=== PATIENT | male | born 1975 | race Hispanic/Latino ===

== ENCOUNTER 2016-04-29 03:43 | Inpatient (IN) | payer OTHER ==
[2016-04-29 03:44] VITALS: BMI 25.1
[2016-04-29] MEDS ORDERED: Sodium Chloride 0.9% 1,000 ML IV STA (04:00)
[2016-04-29 04:16] LABS: BASO # 0.1 K/uL (0.0-0.2); BASO % 1.1 % (0.0-2.0); EOS # 0.1 K/uL (0.0-0.7); EOS % 0.8 % (0.0-4.0); HEMATOCRIT 47.6 % (35.0-51.0); LYMPH # 2.4 K/uL (1.0-4.3); LYMPH % 37.4 % (20.0-40.0); MEAN CELL VOLUME 96.6 fl (80.0-94.0); MEAN CORPUSCULAR HEMOGLOBIN 32.7 pg (27.0-31.0); MEAN CORPUSCULAR HGB CONC 33.9 g/dL (33.0-37.0); MEAN PLATELET VOLUME 8.1 fl (7.2-11.7); MONO # 0.5 K/uL (0.0-0.8); MONO % 8.3 % (0.0-10.0); NEUT # 3.3 K/uL (1.8-7.0); NEUT % 52.4 % (50.0-75.0); NRBC % 0.1 % (0.0-0.0); RED CELL DISTRIBUTION WIDTH 15.4 % (11.5-14.5); WHITE BLOOD COUNT 6.3 K/uL (4.8-10.8)
[2016-04-29 04:19] LABS: CHLORIDE 101 mmol/L (98-107); POTASSIUM 4.4 MMOL/L (3.6-5.0); SODIUM 137 mmol/l (132-148)
[2016-04-29 04:21] LABS: AST/SGOT 99 U/L (17-59); BILIRUBIN,TOTAL 0.6 mg/dl (0.2-1.3); CARBON DIOXIDE 24 mmol/L (22-30); GFR AFRICAN-AMERICAN > 60
[2016-04-29 04:22] LABS: ALB/GLOB RATIO 1.2 (1.0-2.1); ALKALINE PHOSPHATASE 90 U/L (38-126); ALT/SGPT 82 U/L (21-72); BLOOD UREA NITROGEN 9 mg/dl (9-20); CALCIUM 9.2 mg/dL (8.4-10.2); GLUCOSE,RANDOM 124 mg/dL (75-110); TOTAL PROTEIN 7.9 G/DL (6.3-8.2)
[2016-04-29 04:23] LABS: ALCOHOL SERUM 149 mg/dl (0-10)
--- NOTE | 2016-04-29 04:41 | ED PDOC ---
HPI: Abdomen Time Seen by Provider: 04/29/16 03:52 Chief Complaint (Nursing): Abdominal Pain Chief Complaint (Provider): epigastric pain History Per: Patient History/Exam Limitations: no limitations Onset/Duration Of Symptoms: Hrs Outside of [place] travel?: No Current Symptoms Are (Timing): Still Present Location Of Pain/Discomfort: Epigastric Quality Of Discomfort: Stabbing Additional Complaint(s): 41yo male with PMHx including diverticulitis, colon resection, HTN, high cholesterol, pancreatitis, gastritis presents to the ED with c/o stabbing epigastric pain that started around midnight. Patient states he had 2 glasses of wine last night and went to bed feeling fine. Patient has been having pain since midnight. No n/v, changes in bowel movements. Past Medical History Reviewed: Historical Data, Nursing Documentation, Vital Signs Vital Signs: Last Vital Signs Temp 97.4 F L 04/29/16 03:56 Pulse 88 04/29/16 03:56 Resp 18 04/29/16 03:56 BP 129/78 04/29/16 03:56 Pulse Ox 98 04/29/16 04:45 - Medical History PMH: Anxiety, Depression, Diverticulitis, Gastritis, HTN, Hypercholesterolemia, Hyperlipidemia, Pancreatitis Denies: Diabetes, Hepatitis, HIV, Chronic Kidney Disease, Seizures, Sexually Transmitted Disease - Surgical History Other surgeries: colon resection - Family History Family History: States: CAD (in father) - Home Medications Home Medications: Ambulatory Orders Medication Instructions Recorded Amlodipine Besylate/Benazepril 1 cap PO DAILY 08/11/15 [Lotrel 5-20 mg Capsule] Omeprazole Magnesium [Prilosec Otc] 1 tab PO DAILY 08/11/15 clonazePAM [Klonopin] 1 mg PO BID 08/11/15 ARIPiprazole [Abilify] PO DAILY 04/29/16 Escitalopram [Lexapro] 20 mg PO DAILY 04/29/16 - Allergies Allergies/Adverse Reactions: Allergies Allergy/AdvReac Type Severity Reaction Status Date / Time No Known Allergies Allergy Verified 01/19/16 10:52 Review of Systems ROS Statement: Except As Marked, All Systems Reviewed And Found Negative Gastrointestinal: Positive for: Abdominal Pain (epigastric ), Other (no changes in BMs ). Negative for: Nausea, Vomiting Physical Exam - Reviewed Nursing Documentation Reviewed: Yes Vital Signs Reviewed: Yes - Physical Exam Appears: Positive for: Well, No Acute Distress Head Exam: Positive for: ATRAUMATIC, NORMAL INSPECTION, NORMOCEPHALIC Skin: Positive for: Normal Color, Warm, Dry Eye Exam: Positive for: Normal appearance, EOMI, PERRL ENT: Positive for: Normal ENT Inspection Neck: Positive for: Normal, Painless ROM, Supple Cardiovascular/Chest: Positive for: Regular Rate, Rhythm. Negative for: Murmur , Tachycardia Respiratory: Positive for: Normal Breath Sounds. Negative for: Wheezing, Respiratory Distress Gastrointestinal/Abdominal: Positive for: Bowel Sounds, Soft, Tenderness ( epigastric tenderness to palpation ) Back: Positive for: Normal Inspection. Negative for: L CVA Tenderness, R CVA Tenderness Extremity: Positive for: Normal ROM. Negative for: Deformity, Swelling Neurologic/Psych: Positive for: Alert, Oriented. Negative for: Motor/Sensory Deficits - Laboratory Results Result Diagrams: 04/29/16 04:11 04/29/16 04:11 - ECG O2 Sat by Pulse Oximetry: 98 Pulse Ox Interpretation: Normal (RA) Medical Decision Making Medical Decision Makin: Impression: pancreatitis vs. diverticulitis Plan: Labs Morphine 2mg IVP, Protonix 40mg IVP, Zofran 4mg IVP, IVF reassess 530AM: Pt. continues to have epigastric pain. Lipase elevated above 3000. Admits that he drank more than 2 glasses of wine as originally stated. CT not needed to confirm story given previous history of pancreatitis, current symptoms , and lipase. Will do RUQ sono, discuss case with his GI doctor Dr. 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 Scribe Attestation: Documented by Kevin Muñoz acting as a scribe for Mike Lea MD. Provider Scribe Attestation: All medical record entries made by the Scribe were at my direction and personally dictated by me. I have reviewed the chart and agree that the record accurately reflects my personal performance of the history, physical exam, medical decision making, and the department course for this patient. I have also personally directed, reviewed, and agree with the discharge instructions and disposition. Disposition - Clinical Impression Clinical Impression: Pancreatitis, alcoholic, acute - Disposition Disposition Time: 05:36 Condition: STABLE
[2016-04-29 05:07] LABS: LIPASE 3151 U/L (23-300)
[2016-04-29] MEDS ORDERED: Lactated Ringer's 2,000 ML IV SCH (05:30)
--- NOTE | 2016-04-29 09:33 | RAD ---
PROCEDURE: CHEST RADIOGRAPH, 1 VIEW HISTORY: abd pain, pancreatitis COMPARISON: Comparison is made to the previous study dated 01/19/2016 FINDINGS: LUNGS: No evidence of new infiltrate or consolidation in the lungs. PLEURA: No pneumothorax or pleural fluid seen. CARDIOVASCULAR: Normal. OSSEOUS STRUCTURES: No significant abnormalities. VISUALIZED UPPER ABDOMEN: Normal. OTHER FINDINGS: None. IMPRESSION: No active disease.
--- NOTE | 2016-04-29 09:51 | US ---
HISTORY: acute pancreatitis COMPARISON: Comparison is made to the previous CT dated 08/11/2019 60 TECHNIQUE: Sonographic evaluation of the right upper quadrant of the abdomen. FINDINGS: LIVER: Measures 20 cm in length. Heterogeneous increased echogenicity of the liver parenchyma. No mass. No intrahepatic bile duct dilatation. GALLBLADDER: Unremarkable. No gallstones. COMMON BILE DUCT: Measures 3.6 mm. No stones. No dilatation. PANCREAS: Mildly echogenic pancreas . No mass. No ductal dilatation. RIGHT KIDNEY: Measures 12.6 x 6.4 x 5.1 cm in length. Normal echogenicity. No calculus, mass, or hydronephrosis. AORTA: No aneurysmal dilatation. IVC: Unremarkable. OTHER FINDINGS: None . IMPRESSION: No evidence of cholelithiasis or cholecystitis. Mild hepatomegaly with findings suggestive of moderate steatosis. Mildly echogenic pancreas.
--- NOTE | 2016-04-29 10:04 | CP.PCM.HP ---
History of Present Illness - History of Present Illness History of Present Illness: pt admitted for pancreatitis, pt drinks wine daily. pt is w./ epigastric pain w/ o n/v/d. no f/c. bw noted. imaging noted. consult w/ dr weinstein noted. pt is will known to dr weinstein. has h/o panreatitis 1 yr ago. Present on Admission - Present on Admission Any Indicators Present on Admission: No Review of Systems - Gastrointestinal Gastrointestinal: As Per HPI, Abdominal Pain Past Patient History - Tetanus Immunizations Tetanus Immunization: Unknown - Past Medical History & Family History Past Medical History?: Yes - Past Social History Smoking Status: Heavy Smoker > 10 Cigarettes Daily - CARDIAC Hx Cardiac Disorders: Yes - PULMONARY Hx Respiratory Disorders: No - NEUROLOGICAL Hx Seizures: No - HEENT Hx HEENT Problems: No - RENAL Hx Chronic Kidney Disease: No - ENDOCRINE/METABOLIC Hx Endocrine Disorders: No - HEMATOLOGICAL/ONCOLOGICAL Hx Human Immunodeficiency Virus (HIV): No - INTEGUMENTARY Hx Dermatological Problems: No - MUSCULOSKELETAL/RHEUMATOLOGICAL Hx Musculoskeletal Disorders: No - GASTROINTESTINAL Hx Diverticulitis: Yes Hx Gastritis: Yes Hx Pancreatitis: Yes - GENITOURINARY/GYNECOLOGICAL Hx Sexually Transmitted Disorders: No - PSYCHIATRIC Hx Psychophysiologic Disorder: Yes - SURGICAL HISTORY Hx Surgeries: Yes Other/Comment: Hx colon resection 2008. Hx B/L knee surgery for meniscus 2004 - ANESTHESIA Hx Anesthesia: Yes Hx Anesthesia Reactions: No Meds Allergies/Adverse Reactions: Allergies Allergy/AdvReac Type Severity Reaction Status Date / Time No Known Allergies Allergy Verified 01/19/16 10:52 Physical Exam - Constitutional Appears: Well, Non-toxic, No Acute Distress - Head Exam Head Exam: ATRAUMATIC, NORMAL INSPECTION, NORMOCEPHALIC - Eye Exam Eye Exam: EOMI, Normal appearance, PERRL Pupil Exam: NORMAL ACCOMODATION, PERRL - ENT Exam ENT Exam: Mucous Membranes Moist, Normal Exam - Neck Exam Neck exam: Positive for: Normal Inspection - Respiratory Exam Respiratory Exam: Clear to Auscultation Bilateral, NORMAL BREATHING PATTERN - Cardiovascular Exam Cardiovascular Exam: REGULAR RHYTHM, RRR, +S1, +S2 - GI/Abdominal Exam GI & Abdominal Exam: Normal Bowel Sounds, Soft. absent: Tenderness - Extremities Exam Extremities exam: Positive for: full ROM, normal capillary refill, normal inspection, pedal pulses present - Back Exam Back exam: NORMAL INSPECTION - Neurological Exam Neurological exam: Alert, CN II-XII Intact, Normal Gait, Oriented x3, Reflexes Normal - Psychiatric Exam Psychiatric exam: Normal Affect, Normal Mood - Skin Skin Exam: Dry, Intact, Normal Color, Warm Results - Vital Signs Recent Vital Signs: Last Vital Signs Temp 97.4 F L 04/29/16 08:34 Pulse 74 04/29/16 08:34 Resp 20 04/29/16 08:34 BP 139/79 04/29/16 08:34 Pulse Ox 98 04/29/16 08:34 - Labs Result Diagrams: 04/29/16 04:11 04/29/16 04:11 Assessment & Plan (1) Pancreatitis, alcoholic, acute Assessment and Plan: dialudid/morphine pepcid, zofran, liquid diet, adv as enrique gi ivf Status: Acute Priority: High (2) DVT prophylaxis Assessment and Plan: scd nad aehose ambulation Status: Acute Decision To Admit - Pt Status Changed To: Hospital Disposition Of: Observation - . Bed Request Type: Med/Surg Admitting Physician: Malissa Johnson
[2016-04-29] MEDS ORDERED: Pantoprazole 40 mg EC Tab PO SCH (10:30)
[2016-04-29] MEDS: HYDROmorphone 0.5 mg/0.5 ml ISec IVP PRN ×4 (11:03→23:19)
[2016-04-29] MEDS: Sodium Chloride 0.9% 1,000 ML IV SCH ×2 (11:04→19:16)
--- NOTE | 2016-04-29 12:56 | CON ---
DATE: 04/29/2016 REFERRING PHYSICIAN: Dr. Johnson. REASON FOR CONSULTATION: Pancreatitis. HISTORY OF PRESENT ILLNESS: This is a pleasant 41-year-old man well known to my office and service f rom multiple admissions and years essentially for similar complaints. Basically quit his job recentl y, had a bout of drinking and has pancreatitis. Pain is improved, at this point, lying in bed, comfo rtable, no apparent distress. PAST MEDICAL HISTORY: As above. PAST SURGICAL HISTORY: As above. MEDICATIONS: Have been reviewed. REVIEW OF SYSTEMS: All systems reviewed and negative apart from the HPI. PHYSICAL EXAMINATION: VITAL SIGNS: In the hospital grossly unremarkable. GENERAL: Pleasant middle aged man lying comfortable, in no apparent distress. HEAD: Normocephalic, atraumatic. EYES: Pupils equally reactive to light bilaterally. No conjunctival pallor or icterus. NECK: Supple, normal range of motion. No lymphadenopathy. LUNGS: Clear to auscultation bilaterally. HEART: S1, S2. Regular rate and rhythm. No murmurs appreciated. ABDOMEN: Soft, some discomfort in the epigastric region. No organomegaly. RECTAL: Deferred. EXTREMITIES: Pulses present bilaterally. SKIN: Warm, dry and intact. NEUROLOGIC: AAO x 3. LABORATORY DATA: Reviewed. Alcohol levels ____ , lipase ____. AST, ALT 99/82. Random sugar is 124 . Ultrasound grossly unremarkable. CBC is normal. ASSESSMENT AND PLAN: This is a [id number] with pancreatitis from alcohol. This is not his fir st time. Advance diet slowly when tolerated to low fat, ____ hydrations. Advised against any furth er drinking and CT scan in 8 weeks. We will follow in the office. Thank you for the consult. Jose Eduardo Jimenez MD, PhD cc:Natanael MESA [id number] TT: 04/29/2016 12:55:34 Confirmation # [id number] Dictation # [id number] alex
[2016-04-29] MEDS ORDERED: Influenza Vaccine(5yr & older) 0.5 ML/45 MCG IM ONE (16:13)
[2016-04-29] MEDS ORDERED: Pneumococcal 23-Valent Vaccine IM ONE (16:13)
--- NOTE | 2016-04-29 17:08 | CARD ---
APPROVED REPORT EKG Measurement Heart [id number] DC [id number] <Conclusion> Normal sinus rhythm Incomplete right bundle branch block Borderline ECG
[2016-04-30] MEDS: Sodium Chloride 0.9% 1,000 ML IV SCH (02:40)
[2016-04-30] MEDS: HYDROmorphone 0.5 mg/0.5 ml ISec IVP PRN ×5 (03:12→21:49)
[2016-04-30] MEDS ORDERED: HYDROmorphone 0.5 mg/0.5 ml ISec IVP ONE (05:59)
[2016-04-30 06:51] LABS: BASO # 0.1 K/uL (0.0-0.2); BASO % 0.7 % (0.0-2.0); EOS # 0.1 K/uL (0.0-0.7); EOS % 0.8 % (0.0-4.0); HEMATOCRIT 44.3 % (35.0-51.0); LYMPH # 1.3 K/uL (1.0-4.3); LYMPH % 17.2 % (20.0-40.0); MEAN CORPUSCULAR HGB CONC 34.4 g/dL (33.0-37.0); MEAN PLATELET VOLUME 8.7 fl (7.2-11.7); MONO # 0.4 K/uL (0.0-0.8); MONO % 5.6 % (0.0-10.0); NEUT # 5.6 K/uL (1.8-7.0); NEUT % 75.7 % (50.0-75.0); RED CELL DISTRIBUTION WIDTH 14.5 % (11.5-14.5); WHITE BLOOD COUNT 7.5 K/uL (4.8-10.8)
[2016-04-30 06:58] LABS: ALB/GLOB RATIO 1.3 (1.0-2.1); ALCOHOL SERUM < 10 mg/dl (0-10); ALKALINE PHOSPHATASE 80 U/L (38-126); ALT/SGPT 60 U/L (21-72); AST/SGOT 56 U/L (17-59); BILIRUBIN,TOTAL 0.9 mg/dl (0.2-1.3); BLOOD UREA NITROGEN 5 mg/dl (9-20); CALCIUM 8.7 mg/dL (8.4-10.2); CARBON DIOXIDE 27 mmol/L (22-30); CHLORIDE 97 mmol/L (98-107); GFR AFRICAN-AMERICAN > 60; GLUCOSE,RANDOM 95 mg/dL (75-110); LIPASE 1738 U/L (23-300); POTASSIUM 3.6 MMOL/L (3.6-5.0); SODIUM 131 mmol/l (132-148); TOTAL PROTEIN 6.6 G/DL (6.3-8.2)
[2016-04-30] MEDS ORDERED: Lactated Ringer's 1,000 ML IV SCH (08:00)
[2016-04-30] MEDS ORDERED: Iohexol 240 (50 ml) PO ONE (09:41)
--- NOTE | 2016-04-30 09:42 | CP.PCM.PN ---
Subjective - Date & Time of Evaluation Date of Evaluation: 04/30/16 Time of Evaluation: 09:42 - Subjective Subjective: no f/c, n/v/d still w/ epigastric pain but now has rlq pain. no f/c, n/v/d. bw noted. lipase trneding down. enrique liquids does not want solids. cleared by gi for dc if enrique po and pain free. bw noted. Objective - Vital Signs/Intake and Output Vital Signs (last 24 hours): Temp Pulse Resp BP Pulse Ox 98.8 F 89 20 126/79 93 L 04/30/16 07:41 04/30/16 07:41 04/30/16 07:41 04/30/16 07:41 04/30/16 07:41 - Medications Medications: Current Medications Chlordiazepoxide (Librium) 25 mg PO Q6 PRN PRN Reason: tremor/alcohol withdrawal Clonazepam (Klonopin) 1 mg PO BID [facility] Last Admin: 04/30/16 08:42 Dose: 1 mg Escitalopram Oxalate (Lexapro) 20 mg PO DAILY [facility] Last Admin: 04/30/16 08:42 Dose: 20 mg Famotidine (Pepcid) 20 mg IVP Q12@0000,1200 [facility] Last Admin: 04/30/16 00:00 Dose: 20 mg Hydromorphone HCl (Dilaudid) 0.5 mg IVP Q4H PRN PRN Reason: pain 6-10 Stop: 05/01/16 10:32 Last Admin: 04/30/16 03:12 Dose: 0.5 mg Lactated Ringer's (Lactated Ringer's) 1,000 mls @ 100 mls/hr IV .Q10H [facility] Last Admin: 04/30/16 08:47 Dose: 100 mls/hr Iohexol (Omnipaque 240 (50 Ml)) 50 ml PO ONCE ONE Stop: 04/30/16 09:42 Morphine Sulfate (Morphine) 2 mg IVP Q4 PRN PRN Reason: Pain, 2-5 Ondansetron HCl (Zofran Inj) 4 mg IVP Q6 PRN PRN Reason: Nausea/Vomiting Quetiapine Fumarate (Seroquel) 200 mg PO HS [facility] Last Admin: 04/29/16 22:16 Dose: 200 mg - Labs Labs: 04/30/16 05:30 04/30/16 05:30 - Constitutional Appears: Well, Non-toxic, No Acute Distress - Head Exam Head Exam: ATRAUMATIC, NORMAL INSPECTION, NORMOCEPHALIC - Eye Exam Eye Exam: EOMI, Normal appearance, PERRL Pupil Exam: NORMAL ACCOMODATION, PERRL - ENT Exam ENT Exam: Mucous Membranes Moist, Normal Exam - Neck Exam Neck Exam: Full ROM, Normal Inspection. absent: Lymphadenopathy - Respiratory Exam Respiratory Exam: Clear to Ausculation Bilateral, NORMAL BREATHING PATTERN - Cardiovascular Exam Cardiovascular Exam: REGULAR RHYTHM, RRR, +S1, +S2. absent: Murmur - GI/Abdominal Exam GI & Abdominal Exam: Soft, Tenderness, Normal Bowel Sounds Additional comments: epigastric and rlq tenderness - Extremities Exam Extremities Exam: Full ROM, Normal Capillary Refill, Normal Inspection. absent : Joint Swelling, Pedal Edema - Back Exam Back Exam: NORMAL INSPECTION - Neurological Exam Neurological Exam: Alert, Awake, CN II-XII Intact, Normal Gait, Oriented x3 - Psychiatric Exam Psychiatric exam: Normal Affect, Normal Mood - Skin Skin Exam: Dry, Intact, Normal Color, Warm Assessment and Plan (1) Pancreatitis, alcoholic, acute Status: Acute (2) DVT prophylaxis Status: Acute (3) RLQ abdominal pain Status: Acute - Assessment and Plan (Free Text) Assessment: (1) Pancreatitis, alcoholic, acute Assessment and Plan: dialudid/morphine pepcid, zofran, liquid diet, adv as enrique gi ivf Status: Acute Priority: High (2) DVT prophylaxis Assessment and Plan: scd nad aehose ambulation Status: Acute 3-rlq pain-ct abd/pelvix to r/o acute AP, gi f/u, pain control
[2016-04-30 11:23] LABS: BLOOD UREA NITROGEN 5 mg/dl (9-20); CALCIUM 8.8 mg/dL (8.4-10.2); CARBON DIOXIDE 28 mmol/L (22-30); CHLORIDE 97 mmol/L (98-107); GFR AFRICAN-AMERICAN > 60; GLUCOSE,RANDOM 102 mg/dL (75-110); POTASSIUM 3.9 MMOL/L (3.6-5.0); SODIUM 132 mmol/l (132-148)
--- NOTE | 2016-04-30 14:34 | CT ---
PROCEDURE: CT Abdomen and Pelvis with Oral contrast. HISTORY: ruq pain, rlq pain, elevate lipase COMPARISON: Comparison made with prior CT scan abdomen pelvis 08/11/2015 TECHNIQUE: Contiguous axial images of the abdomen and pelvis. Oral contrast was administered. No IV contrast given. Coronal and Sagittal reformats generated. Radiation dose: Total exam DLP = 1028.81 mGy-cm. FINDINGS: LOWER THORAX: Mild right basilar atelectasis. Minimal left basilar atelectasis. No evidence of significant effusion or basilar pneumothorax. Small hiatal hernia with slight wall thickening of the distal esophagus which could be due to protrusion of gastric mucosa. Possibility of esophagitis not excluded. LIVER: The liver is enlarged measuring nearly 24 cm in CC dimension. Mild moderate diffuse fatty hepatic infiltration. No obvious hepatic mass or collection GALLBLADDER AND BILE DUCTS: The gallbladder is physiologically distended. No evidence of intraluminal gallbladder calculi. PANCREAS: There is prominent somewhat heterogeneous appearance of the pancreatic head and proximal pancreatic body with infiltration changes and a suspect a small amount of fluid in the adjacent mesentery of the pancreatic head and body most notably along the posterior inferior margin of the body of the pancreas consistent with acute pancreatitis. Associated wall thickening of the traversing duodenum likely inflammatory and reactive secondary to the acute pancreatitis. Large amount fluid (slightly hyperattenuated) seen tracking along the right para renal space and along the psoas muscle on resulting in marked anterior displacement of the right colon. Small amount of infiltration left para renal space and retroperitoneum. . SPLEEN: Spleen exhibits normal size without mass collection or calcification. ADRENALS: No adrenal lesions. KIDNEYS AND URETERS: The kidneys exhibit symmetric size. No punctate calcifications seen in the lower poles both kidneys. . No evidence of hydronephrosis. Infiltration and fluid seen tracking into the right para renal space due to aforementioned pancreatitis. . Fluid tracks along the right side less muscle. BLADDER: Urinary bladder is incompletely distended which may account for thick-walled appearance. Muscular hypertrophy may contribute. The possibility of a cystitis or other intrinsic/ invasive wall lesion not excluded. REPRODUCTIVE: Prostate gland measures approximately 4.2 cm in transverse dimension. Prostatic calcifications again noted. Seminal vesicles unremarkable. APPENDIX: Normal-appearing appendix best seen on axial image number [id number]. No evidence of acute appendicitis. BOWEL: Evaluation of the bowel is limited due to incomplete opacification. The stomach is underdistended which presumably accounts for thick-walled appearance. Gastritis not excluded. Other intrinsic/ invasive wall lesion also not excluded. Wall thickening of the 3rd/ 4th portions of the duodenum and proximal jejunum due to inflammation related to pancreatitis. . Several loops of proximal small bowel also mildly dilated suggesting ileus however there is no evidence of acute mechanical small bowel obstruction with oral contrast material extending into the colon to the level of the proximal transverse colon region. The at right colon is anteriorly displaced due to large amount of fluid tracking in the of right para renal space related to pancreatitis. . . Scattered colonic diverticula seen along descending colon. Postoperative changes and apparent anastomosis at the level of the mid-distal sigmoid colon. PERITONEUM: No gross free intraperitoneal air. LYMPH NODES: Evaluation for adenopathy is somewhat limited due to the lack of intravenous contrast material. . VASCULATURE: Unremarkable. No aortic aneurysm. BONES: No fracture or destructive lesion. OTHER FINDINGS: None. IMPRESSION: Findings consistent with acute pancreatitis with a large amount of slightly hyper attenuated fluid tracking into the right paresis renal space and inferiorly along the psoas muscle resulting in marked anterior displacement of the right colon. Wall thickening of the at 3rd/ 4th portion of the duodenum and proximal jejunum felt to be reactive secondary to inflammation of the adjacent pancreas. . Mild generalized ileus. No evidence acute mechanical bowel obstruction. Rule out gastritis. Marked hepatomegaly with mild moderate fatty hepatic infiltration. Punctate nonobstructing calculi lower poles right and left kidneys. See above discussion For for additional findings and details.
--- NOTE | 2016-04-30 16:15 | CP.PCM.PN ---
Subjective - Date & Time of Evaluation Date of Evaluation: 04/30/16 Time of Evaluation: 16:12 - Subjective Subjective: c/o rlq pain but denies n/v or fever PE; vss afebrile abd - soft with decreased BS and RLQ tenderness labs - noted CT scan reveals acute pancreatitius with large fluid collection in the RLQ imp/plan: acute ETOHic pancreatitis with significant findings on CT scan NPO except meds imcrease IVF Objective - Vital Signs/Intake and Output Vital Signs (last 24 hours): Temp Pulse Resp BP Pulse Ox 98.8 F 89 20 126/79 93 L 04/30/16 07:41 04/30/16 07:41 04/30/16 07:41 04/30/16 07:41 04/30/16 07:41 - Medications Medications: Current Medications Chlordiazepoxide (Librium) 25 mg PO Q6 PRN PRN Reason: tremor/alcohol withdrawal Clonazepam (Klonopin) 1 mg PO BID [facility] Last Admin: 04/30/16 08:42 Dose: 1 mg Escitalopram Oxalate (Lexapro) 20 mg PO DAILY [facility] Last Admin: 04/30/16 08:42 Dose: 20 mg Famotidine (Pepcid) 20 mg IVP Q12@0000,1200 [facility] Last Admin: 04/30/16 12:37 Dose: 20 mg Hydromorphone HCl (Dilaudid) 0.5 mg IVP Q4H PRN PRN Reason: pain 6-10 Stop: 05/01/16 10:32 Last Admin: 04/30/16 14:23 Dose: 0.5 mg Lactated Ringer's (Lactated Ringer's) 1,000 mls @ 200 mls/hr IV .Q5H [facility] Morphine Sulfate (Morphine) 2 mg IVP Q4 PRN PRN Reason: Pain, 2-5 Last Admin: 04/30/16 12:30 Dose: 2 mg Ondansetron HCl (Zofran Inj) 4 mg IVP Q6 PRN PRN Reason: Nausea/Vomiting Quetiapine Fumarate (Seroquel) 200 mg PO HS [facility] Last Admin: 04/29/16 22:16 Dose: 200 mg - Labs Labs: 04/30/16 05:30 04/30/16 11:11
[2016-04-30] MEDS: Lactated Ringer's 1,000 ML IV SCH ×2 (16:22→21:31)
[2016-05-01] MEDS: HYDROmorphone 0.5 mg/0.5 ml ISec IVP PRN ×6 (01:41→22:04)
[2016-05-01] MEDS: Lactated Ringer's 1,000 ML IV SCH ×4 (03:11→16:39)
[2016-05-01 07:40] LABS: HEMATOCRIT 41.6 % (35.0-51.0); MEAN CELL VOLUME 96.9 fl (80.0-94.0); MEAN CORPUSCULAR HEMOGLOBIN 33.3 pg (27.0-31.0); MEAN CORPUSCULAR HGB CONC 34.4 g/dL (33.0-37.0); RED CELL DISTRIBUTION WIDTH 14.6 % (11.5-14.5); WHITE BLOOD COUNT 7.9 K/uL (4.8-10.8)
[2016-05-01 08:01] LABS: ALB/GLOB RATIO 1.2 (1.0-2.1); ALKALINE PHOSPHATASE 62 U/L (38-126); ALT/SGPT 47 U/L (21-72); AST/SGOT 34 U/L (17-59); BLOOD UREA NITROGEN 7 mg/dl (9-20); CALCIUM 8.8 mg/dL (8.4-10.2); CARBON DIOXIDE 26 mmol/L (22-30); CHLORIDE 98 mmol/L (98-107); GFR AFRICAN-AMERICAN > 60; GLUCOSE,RANDOM 101 mg/dL (75-110); LIPASE 584 U/L (23-300); POTASSIUM 3.4 MMOL/L (3.6-5.0); SODIUM 131 mmol/l (132-148); TOTAL PROTEIN 6.1 G/DL (6.3-8.2)
--- NOTE | 2016-05-01 09:38 | CP.PCM.PN ---
Subjective - Date & Time of Evaluation Date of Evaluation: 05/01/16 Time of Evaluation: 09:38 - Subjective Subjective: no complaints/distress except abd pain at present. still w/ fever. to start cipro/flagyl as per dr alarcon npo remains still w/ diffuse abd tenderness bw noted ct abd/pelvis noted w/ ileus, ?? colitis, pancreatitis. no AP Objective - Vital Signs/Intake and Output Vital Signs (last 24 hours): Temp Pulse Resp BP Pulse Ox 102.3 F H 107 H 20 131/83 92 L 05/01/16 08:33 05/01/16 08:15 05/01/16 08:15 05/01/16 08:15 05/01/16 08:15 - Medications Medications: Current Medications Acetaminophen (Tylenol 325mg Tab) 650 mg PO Q4 PRN PRN Reason: Temperature Last Admin: 05/01/16 08:33 Dose: 650 mg Chlordiazepoxide (Librium) 25 mg PO Q6 PRN PRN Reason: tremor/alcohol withdrawal Last Admin: 04/30/16 20:35 Dose: 25 mg Clonazepam (Klonopin) 1 mg PO BID [facility] Last Admin: 05/01/16 08:34 Dose: 1 mg Escitalopram Oxalate (Lexapro) 20 mg PO DAILY [facility] Last Admin: 05/01/16 08:36 Dose: 20 mg Famotidine (Pepcid) 20 mg IVP Q12@0000,1200 [facility] Last Admin: 05/01/16 00:22 Dose: 20 mg Hydromorphone HCl (Dilaudid) 0.5 mg IVP Q4H PRN PRN Reason: pain 6-10 Stop: 05/01/16 10:32 Last Admin: 05/01/16 06:08 Dose: 0.5 mg Lactated Ringer's (Lactated Ringer's) 1,000 mls @ 200 mls/hr IV .Q5H [facility] Last Admin: 05/01/16 08:35 Dose: 200 mls/hr Morphine Sulfate (Morphine) 2 mg IVP Q4 PRN PRN Reason: Pain, 2-5 Last Admin: 04/30/16 12:30 Dose: 2 mg Nicotine (Nicoderm Cq) 1 patch TD DAILY [facility] Last Admin: 05/01/16 08:34 Dose: 1 patch Ondansetron HCl (Zofran Inj) 4 mg IVP Q6 PRN PRN Reason: Nausea/Vomiting Quetiapine Fumarate (Seroquel) 200 mg PO HS [facility] Last Admin: 04/30/16 22:04 Dose: 200 mg - Labs Labs: 05/01/16 05:30 05/01/16 05:30 - Constitutional Appears: Well, Non-toxic, No Acute Distress - Head Exam Head Exam: ATRAUMATIC, NORMAL INSPECTION, NORMOCEPHALIC - Eye Exam Eye Exam: EOMI, Normal appearance, PERRL Pupil Exam: NORMAL ACCOMODATION, PERRL - ENT Exam ENT Exam: Mucous Membranes Moist, Normal Exam - Neck Exam Neck Exam: Full ROM, Normal Inspection. absent: Lymphadenopathy - Respiratory Exam Respiratory Exam: Clear to Ausculation Bilateral, NORMAL BREATHING PATTERN - Cardiovascular Exam Cardiovascular Exam: REGULAR RHYTHM, RRR, +S1, +S2. absent: Murmur - GI/Abdominal Exam GI & Abdominal Exam: Soft, Normal Bowel Sounds. absent: Tenderness - Extremities Exam Extremities Exam: Full ROM, Normal Capillary Refill, Normal Inspection. absent : Joint Swelling, Pedal Edema - Back Exam Back Exam: NORMAL INSPECTION - Neurological Exam Neurological Exam: Alert, Awake, CN II-XII Intact, Normal Gait, Oriented x3 - Psychiatric Exam Psychiatric exam: Normal Affect, Normal Mood - Skin Skin Exam: Dry, Intact, Normal Color, Warm Assessment and Plan (1) Pancreatitis, alcoholic, acute Status: Acute (2) DVT prophylaxis Status: Acute (3) RLQ abdominal pain Status: Acute - Assessment and Plan (Free Text) Assessment: (1) Pancreatitis, alcoholic, acute Assessment and Plan: dialudid/morphine pepcid, zofran, liquid diet, adv as enrique gi ivf will cover w/ cipro/flagyl for persistent fevers Status: Acute Priority: High (2) DVT prophylaxis Assessment and Plan: scd nad aehose ambulation Status: Acute 3-rlq pain-ct abd/pelvix to r/o acute AP, gi f/u, pain control, no Acute AP
[2016-05-01] MEDS: Potassium CL 10mEq/100ml 100 ML IVPB SCH ×2 (10:41→14:08)
[2016-05-01] MEDS ORDERED: HYDROmorphone 0.5 mg/0.5 ml ISec IVP PRN (10:50)
[2016-05-01] MEDS: Ciprofloxacin 400mg/200ml D5W 200 ML IVPB SCH ×2 (11:46→21:05)
[2016-05-01] MEDS: metroNIDAZOLE 500mg/100ml NS 100 ML IVPB SCH ×2 (11:47→16:39)
--- NOTE | 2016-05-01 13:19 | CP.PCM.PN ---
Subjective - Date & Time of Evaluation Date of Evaluation: 05/01/16 Time of Evaluation: 13:16 - Subjective Subjective: non-toxic appearing but c/o RLQ pain which is sharp and pulsating PE: vss with Tmax - 102 abd - soft with +BS tender particularly RLQ labs - WBC - WNL lipase decreased to 500's imp/plan: severe acute pancreatitis with fever and abd pain probably related to the large amount of fluid collecting in the RLQ NPO IV Abx empirically started IVF Objective - Vital Signs/Intake and Output Vital Signs (last 24 hours): Temp Pulse Resp BP Pulse Ox 100.9 F H 107 H 20 131/83 92 L 05/01/16 09:59 05/01/16 08:15 05/01/16 08:15 05/01/16 08:15 05/01/16 08:15 - Medications Medications: Current Medications Acetaminophen (Tylenol 325mg Tab) 650 mg PO Q4 PRN PRN Reason: Temperature Last Admin: 05/01/16 08:33 Dose: 650 mg Chlordiazepoxide (Librium) 25 mg PO Q6 PRN PRN Reason: tremor/alcohol withdrawal Last Admin: 04/30/16 20:35 Dose: 25 mg Clonazepam (Klonopin) 1 mg PO BID [facility] Last Admin: 05/01/16 08:34 Dose: 1 mg Escitalopram Oxalate (Lexapro) 20 mg PO DAILY [facility] Last Admin: 05/01/16 08:36 Dose: 20 mg Famotidine (Pepcid) 20 mg IVP Q12@0000,1200 [facility] Last Admin: 05/01/16 11:49 Dose: 20 mg Hydromorphone HCl (Dilaudid) 0.5 mg IVP Q4 PRN PRN Reason: pain level 6-10 Lactated Ringer's (Lactated Ringer's) 1,000 mls @ 200 mls/hr IV .Q5H [facility] Last Admin: 05/01/16 11:50 Dose: 200 mls/hr Ciprofloxacin (Cipro 400mg/200ml Dsw) 200 mls @ 200 mls/hr IVPB Q12 [facility] Last Admin: 05/01/16 11:46 Dose: 200 mls/hr Metronidazole (Flagyl 500mg/100ml Ns) 100 mls @ 100 mls/hr IVPB Q8 [facility] Last Admin: 05/01/16 11:47 Dose: 100 mls/hr Morphine Sulfate (Morphine) 2 mg IVP Q4 PRN PRN Reason: Pain, 2-5 Last Admin: 04/30/16 12:30 Dose: 2 mg Nicotine (Nicoderm Cq) 1 patch TD DAILY [facility] Last Admin: 05/01/16 08:34 Dose: 1 patch Ondansetron HCl (Zofran Inj) 4 mg IVP Q6 PRN PRN Reason: Nausea/Vomiting Quetiapine Fumarate (Seroquel) 200 mg PO HS [facility] Last Admin: 04/30/16 22:04 Dose: 200 mg - Labs Labs: 05/01/16 05:30 05/01/16 05:30
[2016-05-02] MEDS: Lactated Ringer's 1,000 ML IV SCH ×6 (01:28→21:48)
[2016-05-02] MEDS: metroNIDAZOLE 500mg/100ml NS 100 ML IVPB SCH ×3 (01:28→16:48)
[2016-05-02] MEDS: HYDROmorphone 0.5 mg/0.5 ml ISec IVP PRN ×4 (01:59→14:25)
[2016-05-02 06:47] LABS: BASO % 0.6 % (0.0-2.0); EOS # 0.1 K/uL (0.0-0.7); EOS % 1.3 % (0.0-4.0); HEMATOCRIT 37.3 % (35.0-51.0); LYMPH # 1.4 K/uL (1.0-4.3); LYMPH % 17.6 % (20.0-40.0); MEAN CELL VOLUME 97.2 fl (80.0-94.0); MEAN CORPUSCULAR HEMOGLOBIN 33.5 pg (27.0-31.0); MEAN CORPUSCULAR HGB CONC 34.5 g/dL (33.0-37.0); MONO # 0.7 K/uL (0.0-0.8); NEUT # 5.9 K/uL (1.8-7.0); NEUT % 71.8 % (50.0-75.0); RED CELL DISTRIBUTION WIDTH 14.7 % (11.5-14.5); WHITE BLOOD COUNT 8.2 K/uL (4.8-10.8)
[2016-05-02 06:54] LABS: MONO % 8.7 % (0.0-10.0)
[2016-05-02 06:56] LABS: ALB/GLOB RATIO 1.1 (1.0-2.1); ALKALINE PHOSPHATASE 67 U/L (38-126); ALT/SGPT 39 U/L (21-72); AST/SGOT 30 U/L (17-59); BILIRUBIN,TOTAL 0.7 mg/dl (0.2-1.3); BLOOD UREA NITROGEN 7 mg/dl (9-20); CALCIUM 8.8 mg/dL (8.4-10.2); CARBON DIOXIDE 27 mmol/L (22-30); GFR AFRICAN-AMERICAN > 60; GLUCOSE,RANDOM 87 mg/dL (75-110); LIPASE 236 U/L (23-300); POTASSIUM 3.5 MMOL/L (3.6-5.0); SODIUM 133 mmol/l (132-148)
[2016-05-02 06:58] LABS: CHLORIDE 98 mmol/L (98-107)
--- NOTE | 2016-05-02 07:22 | CP.PCM.PN ---
Subjective - Date & Time of Evaluation Date of Evaluation: 05/02/16 Time of Evaluation: 07:22 - Subjective Subjective: still w/ rlq pain. no n/v/d. afebrile since yesterday. no distress. dc case w/ dr alarcon to adv to clrs today. doing well w/ pain meds. Objective - Vital Signs/Intake and Output Vital Signs (last 24 hours): Temp Pulse Resp BP Pulse Ox 99.6 F 73 20 119/74 99 05/01/16 21:01 05/01/16 21:01 05/01/16 21:01 05/01/16 21:01 05/01/16 21:01 - Medications Medications: Current Medications Acetaminophen (Tylenol 325mg Tab) 650 mg PO Q4 PRN PRN Reason: Temperature Last Admin: 05/01/16 15:38 Dose: 650 mg Chlordiazepoxide (Librium) 25 mg PO Q6 PRN PRN Reason: tremor/alcohol withdrawal Last Admin: 04/30/16 20:35 Dose: 25 mg Clonazepam (Klonopin) 1 mg PO BID [facility] Last Admin: 05/01/16 16:39 Dose: 1 mg Escitalopram Oxalate (Lexapro) 20 mg PO DAILY [facility] Last Admin: 05/01/16 08:36 Dose: 20 mg Famotidine (Pepcid) 20 mg IVP Q12@0000,1200 [facility] Last Admin: 05/01/16 23:52 Dose: 20 mg Hydromorphone HCl (Dilaudid) 1 mg IVP Q4 PRN PRN Reason: pain level 6-10 Last Admin: 05/02/16 06:25 Dose: 1 mg Lactated Ringer's (Lactated Ringer's) 1,000 mls @ 200 mls/hr IV .Q5H [facility] Last Admin: 05/02/16 04:16 Dose: Not Given Ciprofloxacin (Cipro 400mg/200ml Dsw) 200 mls @ 200 mls/hr IVPB Q12 [facility] Last Admin: 05/01/16 21:05 Dose: 200 mls/hr Metronidazole (Flagyl 500mg/100ml Ns) 100 mls @ 100 mls/hr IVPB Q8 [facility] Last Admin: 05/02/16 01:28 Dose: 100 mls/hr Morphine Sulfate (Morphine) 2 mg IVP Q4 PRN PRN Reason: Pain, 2-5 Last Admin: 04/30/16 12:30 Dose: 2 mg Nicotine (Nicoderm Cq) 1 patch TD DAILY [facility] Last Admin: 05/01/16 08:34 Dose: 1 patch Ondansetron HCl (Zofran Inj) 4 mg IVP Q6 PRN PRN Reason: Nausea/Vomiting Quetiapine Fumarate (Seroquel) 200 mg PO HS [facility] Last Admin: 05/01/16 22:43 Dose: 200 mg - Labs Labs: 05/02/16 05:30 05/02/16 05:30 - Constitutional Appears: Well, Non-toxic, No Acute Distress - Head Exam Head Exam: ATRAUMATIC, NORMAL INSPECTION, NORMOCEPHALIC - Eye Exam Eye Exam: EOMI, Normal appearance, PERRL Pupil Exam: NORMAL ACCOMODATION, PERRL - ENT Exam ENT Exam: Mucous Membranes Moist, Normal Exam - Neck Exam Neck Exam: Full ROM, Normal Inspection. absent: Lymphadenopathy - Respiratory Exam Respiratory Exam: Clear to Ausculation Bilateral, NORMAL BREATHING PATTERN - Cardiovascular Exam Cardiovascular Exam: REGULAR RHYTHM, +S1, +S2. absent: Murmur - GI/Abdominal Exam GI & Abdominal Exam: Soft, Normal Bowel Sounds. absent: Tenderness - Extremities Exam Extremities Exam: Full ROM, Normal Capillary Refill, Normal Inspection. absent : Joint Swelling, Pedal Edema - Back Exam Back Exam: NORMAL INSPECTION - Neurological Exam Neurological Exam: Alert, Awake, CN II-XII Intact, Normal Gait, Oriented x3 - Psychiatric Exam Psychiatric exam: Normal Affect, Normal Mood - Skin Skin Exam: Dry, Intact, Normal Color, Warm Assessment and Plan (1) Pancreatitis, alcoholic, acute Status: Acute (2) DVT prophylaxis Status: Acute (3) RLQ abdominal pain Status: Acute - Assessment and Plan (Free Text) Assessment: (1) Pancreatitis, alcoholic, acute Assessment and Plan: dialudid/morphine pepcid, zofran, liquid diet, adv as enrique gi ivf will cover w/ cipro/flagyl for persistent fevers Status: Acute Priority: High (2) DVT prophylaxis Assessment and Plan: scd nad aehose ambulation Status: Acute 3-rlq pain-ct abd/pelvix to r/o acute AP, gi f/u, pain control, no Acute AP
[2016-05-02] MEDS: Ciprofloxacin 400mg/200ml D5W 200 ML IVPB SCH ×2 (09:30→21:45)
--- NOTE | 2016-05-02 15:03 | CP.PCM.PN ---
Subjective - Date & Time of Evaluation Date of Evaluation: 05/02/16 Time of Evaluation: 10:00 - Subjective Subjective: GI: Dr. Weldon Pt seen and examined. No acute overnight events. States he continues to have RLQ pain but otherwise feels ok. Denies N/V. Admits to tolerating liquids. Objective - Vital Signs/Intake and Output Vital Signs (last 24 hours): Temp Pulse Resp BP Pulse Ox 101.5 F H 91 H 20 108/69 90 L 05/02/16 14:36 05/02/16 08:07 05/02/16 08:07 05/02/16 08:07 05/02/16 08:07 - Medications Medications: Current Medications Acetaminophen (Tylenol 325mg Tab) 650 mg PO Q4 PRN PRN Reason: Temperature Last Admin: 05/02/16 14:36 Dose: 650 mg Chlordiazepoxide (Librium) 25 mg PO Q6 PRN PRN Reason: tremor/alcohol withdrawal Last Admin: 04/30/16 20:35 Dose: 25 mg Clonazepam (Klonopin) 1 mg PO BID [facility] Last Admin: 05/02/16 09:36 Dose: 1 mg Escitalopram Oxalate (Lexapro) 20 mg PO DAILY [facility] Last Admin: 05/02/16 09:31 Dose: 20 mg Famotidine (Pepcid) 20 mg IVP Q12@0000,1200 [facility] Last Admin: 05/02/16 13:11 Dose: 20 mg Hydromorphone HCl (Dilaudid) 1 mg IVP Q4 PRN PRN Reason: pain level 6-10 Last Admin: 05/02/16 14:25 Dose: 1 mg Lactated Ringer's (Lactated Ringer's) 1,000 mls @ 200 mls/hr IV .Q5H [facility] Last Admin: 05/02/16 07:37 Dose: 200 mls/hr Ciprofloxacin (Cipro 400mg/200ml Dsw) 200 mls @ 200 mls/hr IVPB Q12 [facility] Last Admin: 05/02/16 09:30 Dose: 200 mls/hr Metronidazole (Flagyl 500mg/100ml Ns) 100 mls @ 100 mls/hr IVPB Q8 [facility] Last Admin: 05/02/16 09:30 Dose: 100 mls/hr Morphine Sulfate (Morphine) 2 mg IVP Q4 PRN PRN Reason: Pain, 2-5 Last Admin: 04/30/16 12:30 Dose: 2 mg Nicotine (Nicoderm Cq) 1 patch TD DAILY [facility] Last Admin: 05/02/16 09:31 Dose: 1 patch Ondansetron HCl (Zofran Inj) 4 mg IVP Q6 PRN PRN Reason: Nausea/Vomiting Quetiapine Fumarate (Seroquel) 200 mg PO HS [facility] Last Admin: 05/01/16 22:43 Dose: 200 mg - Labs Labs: 05/02/16 05:30 05/02/16 05:30 - Constitutional Appears: Well, No Acute Distress - Head Exam Head Exam: ATRAUMATIC, NORMOCEPHALIC - Eye Exam Eye Exam: Normal appearance - ENT Exam ENT Exam: Mucous Membranes Moist - Respiratory Exam Respiratory Exam: NORMAL BREATHING PATTERN - Cardiovascular Exam Cardiovascular Exam: Tachycardia - GI/Abdominal Exam GI & Abdominal Exam: Soft, Tenderness (RLQ). absent: Distended, Rebound - Neurological Exam Neurological Exam: Alert, Awake, Oriented x3 - Skin Skin Exam: Dry, Intact, Warm Assessment and Plan - Assessment and Plan (Free Text) Assessment: 41M with acute on chronic pancreatitis Plan: - Pt still with RLQ pain secondary to inflammatory process from pancreas - No leukocytosis but continues to have fevers; discussed possible IR drainage with Dr. Mckeon however at this time the fluid collection isn't large enough and too close to the bowel - Will continue to monitor. If pt continues to spike fevers, will re-evaluate and order an US of RLQ as per discussion with Dr. Mckeon - Keep on CLD for now - Monitor WBC - d/w Dr. Shiraz Campbell, PGY-2
[2016-05-02] MEDS ORDERED: HYDROmorphone 0.5 mg/0.5 ml ISec IVP STA (15:38)
[2016-05-02] MEDS: Amylase/Lipase/Protease 5,000 U ECC PO SCH (17:24)
[2016-05-03] MEDS: metroNIDAZOLE 500mg/100ml NS 100 ML IVPB SCH ×3 (00:01→17:37)
[2016-05-03 06:50] LABS: BASO # 0.1 K/uL (0.0-0.2); BASO % 0.5 % (0.0-2.0); EOS # 0.1 K/uL (0.0-0.7); EOS % 1.4 % (0.0-4.0); HEMATOCRIT 41.5 % (35.0-51.0); LYMPH # 1.6 K/uL (1.0-4.3); LYMPH % 15.9 % (20.0-40.0); MEAN CELL VOLUME 98.3 fl (80.0-94.0); MEAN CORPUSCULAR HEMOGLOBIN 33.3 pg (27.0-31.0); MEAN CORPUSCULAR HGB CONC 33.9 g/dL (33.0-37.0); MEAN PLATELET VOLUME 9.3 fl (7.2-11.7); MONO # 1.2 K/uL (0.0-0.8); MONO % 11.8 % (0.0-10.0); NEUT % 70.4 % (50.0-75.0); NRBC % 0.1 % (0.0-0.0); RED CELL DISTRIBUTION WIDTH 15.1 % (11.5-14.5); WHITE BLOOD COUNT 9.9 K/uL (4.8-10.8)
[2016-05-03 07:50] LABS: ALB/GLOB RATIO 1.1 (1.0-2.1); ALKALINE PHOSPHATASE 71 U/L (38-126); ALT/SGPT 35 U/L (21-72); AST/SGOT 26 U/L (17-59); BILIRUBIN,TOTAL 0.7 mg/dl (0.2-1.3); BLOOD UREA NITROGEN 5 mg/dl (9-20); CARBON DIOXIDE 28 mmol/L (22-30); CHLORIDE 97 mmol/L (98-107); GFR AFRICAN-AMERICAN > 60; GLUCOSE,RANDOM 92 mg/dL (75-110); POTASSIUM 3.1 MMOL/L (3.6-5.0); SODIUM 135 mmol/l (132-148); TOTAL PROTEIN 6.7 G/DL (6.3-8.2)
[2016-05-03] MEDS: Amylase/Lipase/Protease 5,000 U ECC PO SCH ×3 (08:00→17:34)
--- NOTE | 2016-05-03 09:00 | CP.PCM.PN ---
Subjective - Date & Time of Evaluation Date of Evaluation: 05/03/16 Time of Evaluation: 09:00 - Subjective Subjective: less pain but still rlq tenderness no n/v/d still w/ low grade temp doing well w/ cld dictated note Objective - Vital Signs/Intake and Output Vital Signs (last 24 hours): Temp Pulse Resp BP Pulse Ox 100.7 F H 82 18 129/74 94 L 05/03/16 08:00 05/03/16 07:58 05/03/16 07:58 05/03/16 07:58 05/03/16 07:58 - Medications Medications: Current Medications Acetaminophen (Tylenol 325mg Tab) 650 mg PO Q4 PRN PRN Reason: Temperature Last Admin: 05/03/16 08:00 Dose: 650 mg Amylase (Pancrease 55982 U-5000 U-23057 U) 10,000 u PO AC [facility] Last Admin: 05/02/16 17:24 Dose: 10,000 u Chlordiazepoxide (Librium) 25 mg PO Q6 PRN PRN Reason: tremor/alcohol withdrawal Last Admin: 04/30/16 20:35 Dose: 25 mg Clonazepam (Klonopin) 1 mg PO BID [facility] Last Admin: 05/02/16 16:50 Dose: 1 mg Escitalopram Oxalate (Lexapro) 20 mg PO DAILY [facility] Last Admin: 05/02/16 09:31 Dose: 20 mg Famotidine (Pepcid) 20 mg IVP Q12@0000,1200 [facility] Last Admin: 05/03/16 00:01 Dose: 20 mg Hydromorphone HCl (Dilaudid) 2 mg IVP Q6 PRN PRN Reason: Pain, severe (8-10) Last Admin: 05/03/16 07:30 Dose: 2 mg Lactated Ringer's (Lactated Ringer's) 1,000 mls @ 200 mls/hr IV .Q5H [facility] Last Admin: 05/02/16 21:48 Dose: 200 mls/hr Ciprofloxacin (Cipro 400mg/200ml Dsw) 200 mls @ 200 mls/hr IVPB Q12 [facility] Last Admin: 05/02/16 21:45 Dose: 200 mls/hr Metronidazole (Flagyl 500mg/100ml Ns) 100 mls @ 100 mls/hr IVPB Q8 [facility] Last Admin: 05/03/16 00:01 Dose: 100 mls/hr Potassium Chloride (Potassium Chloride 10 Meq/100 Ml) 100 mls @ 100 mls/hr IVPB Q1 [facility] Stop: 05/03/16 12:59 Morphine Sulfate (Morphine) 2 mg IVP Q4 PRN PRN Reason: Pain, 2-5 Last Admin: 04/30/16 12:30 Dose: 2 mg Nicotine (Nicoderm Cq) 1 patch TD DAILY [facility] Last Admin: 05/02/16 09:31 Dose: 1 patch Ondansetron HCl (Zofran Inj) 4 mg IVP Q6 PRN PRN Reason: Nausea/Vomiting Last Admin: 05/03/16 00:05 Dose: 4 mg Quetiapine Fumarate (Seroquel) 200 mg PO HS [facility] Last Admin: 05/02/16 21:45 Dose: 200 mg - Labs Labs: 05/03/16 05:05 05/03/16 05:05 Assessment and Plan (1) Pancreatitis, alcoholic, acute Status: Acute (2) DVT prophylaxis Status: Acute (3) RLQ abdominal pain Status: Acute
[2016-05-03] MEDS: Ciprofloxacin 400mg/200ml D5W 200 ML IVPB SCH ×2 (09:04→20:02)
--- NOTE | 2016-05-03 10:57 | PN ---
DATE: 05/03/2016 The patient is evaluated in bed. States that he is feeling overall better. He is able to move a little bit without having severe pain to his right lower quadrant tenderness. He is having low-grade fevers. Blood work noted, still with low potassium. REVIEW OF SYSTEMS: Right lower quadrant pain. PHYSICAL EXAMINATION: GENERAL: Alert and oriented. HEART: Regular rate and rhythm. No murmurs, rubs or gallops. LUNGS: Clear in all rooney bilaterally. ABDOMEN: Soft, tender only in the right lower quadrant. Bowel sounds are present in all quadrants. EXTREMITIES: Distal PMS is intact. DIAGNOSES AND PLAN: 1. Acute pancreatitis, plating equipment tender in the right lower quadrant. titrate down IV pain medicine. The patient discussed at length about switching to p.o. pain medicines. The patient is agreeable. Will discuss the transition with Dr. alarcon; likely start tomorrow. Continue IV fluids, clear liquid diet, advance as tolerated. 2. Deep venous thrombosis prophylaxis. Sequential compression devices and anti -embolism hose. Will cautiously advance patient's diet. Will cautiously transition patient to p.o. medicines and discharge when stable. Natanael MESA cc: [id number] TT: 05/03/2016 10:56:54 Confirmation # [id number] Dictation # [id number] chet WILLS
[2016-05-03] MEDS: Potassium CL 10mEq/100ml 100 ML IVPB SCH ×4 (13:33→16:30)
[2016-05-03] MEDS: Lactated Ringer's 1,000 ML IV SCH (13:37)
[2016-05-04] MEDS: metroNIDAZOLE 500mg/100ml NS 100 ML IVPB SCH ×3 (00:52→16:00)
[2016-05-04] MEDS ORDERED: Iohexol 240 (50 ml) ONE (05:38)
[2016-05-04] MEDS ORDERED: Iohexol 240 (50 ml) PO ONE ×2 (06:00→06:07)
[2016-05-04 07:00] LABS: ALB/GLOB RATIO 1.1 (1.0-2.1); ALKALINE PHOSPHATASE 63 U/L (38-126); ALT/SGPT 32 U/L (21-72); AST/SGOT 21 U/L (17-59); BILIRUBIN,TOTAL 0.5 mg/dl (0.2-1.3); BLOOD UREA NITROGEN 5 mg/dl (9-20); CALCIUM 8.6 mg/dL (8.4-10.2); CARBON DIOXIDE 28 mmol/L (22-30); CHLORIDE 99 mmol/L (98-107); GFR AFRICAN-AMERICAN > 60; GLUCOSE,RANDOM 94 mg/dL (75-110); POTASSIUM 3.3 MMOL/L (3.6-5.0); SODIUM 142 mmol/l (132-148); TOTAL PROTEIN 5.8 G/DL (6.3-8.2)
[2016-05-04 07:04] LABS: BASO # 0.1 K/uL (0.0-0.2); BASO % 0.8 % (0.0-2.0); EOS # 0.2 K/uL (0.0-0.7); EOS % 1.8 % (0.0-4.0); HEMATOCRIT 36.6 % (35.0-51.0); LYMPH # 1.7 K/uL (1.0-4.3); LYMPH % 17.9 % (20.0-40.0); MEAN CELL VOLUME 97.5 fl (80.0-94.0); MEAN CORPUSCULAR HEMOGLOBIN 33.9 pg (27.0-31.0); MEAN CORPUSCULAR HGB CONC 34.8 g/dL (33.0-37.0); MEAN PLATELET VOLUME 8.6 fl (7.2-11.7); MONO # 1.6 K/uL (0.0-0.8); MONO % 17.3 % (0.0-10.0); NEUT # 5.9 K/uL (1.8-7.0); NEUT % 62.2 % (50.0-75.0); RED CELL DISTRIBUTION WIDTH 15.2 % (11.5-14.5); WHITE BLOOD COUNT 9.5 K/uL (4.8-10.8)
[2016-05-04] MEDS ORDERED: Sodium Chloride 0.9% 50 ML IV ONE (08:02)
[2016-05-04] MEDS ORDERED: Iohexol 300 100 ML IJ ONE (08:02)
[2016-05-04] MEDS: Ciprofloxacin 400mg/200ml D5W 200 ML IVPB SCH ×2 (08:27→20:11)
--- NOTE | 2016-05-04 08:39 | CP.PCM.PN ---
Subjective - Date & Time of Evaluation Date of Evaluation: 05/04/16 Time of Evaluation: 08:37 - Subjective Subjective: pt comfortable in bed, still w/ pain w/ rom of torso and palpation rlq. for ct today as still febrile. enrique cld well. no n/v/d. still using iv pain meds regularly Objective - Vital Signs/Intake and Output Vital Signs (last 24 hours): Temp Pulse Resp BP Pulse Ox 99.2 F 85 18 134/81 94 L 05/03/16 21:27 05/03/16 21:27 05/03/16 21:27 05/03/16 21:27 05/03/16 21:27 - Medications Medications: Current Medications Acetaminophen (Tylenol 325mg Tab) 650 mg PO Q4 PRN PRN Reason: Temperature Last Admin: 05/03/16 18:23 Dose: 650 mg Amylase (Pancrease 51758 U-5000 U-36623 U) 10,000 u PO AC [facility] Last Admin: 05/03/16 17:34 Dose: 10,000 u Chlordiazepoxide (Librium) 25 mg PO Q6 PRN PRN Reason: tremor/alcohol withdrawal Last Admin: 05/03/16 22:26 Dose: 25 mg Clonazepam (Klonopin) 1 mg PO BID [facility] Last Admin: 05/03/16 17:34 Dose: 1 mg Escitalopram Oxalate (Lexapro) 20 mg PO DAILY [facility] Last Admin: 05/03/16 09:06 Dose: 20 mg Famotidine (Pepcid) 20 mg IVP Q12@0000,1200 [facility] Last Admin: 05/04/16 00:15 Dose: 20 mg Home Med (Patient's Own Medication) 1 unit TOP DAILY [facility] Hydromorphone HCl (Dilaudid) 2 mg IVP Q6 PRN PRN Reason: Pain, severe (8-10) Last Admin: 05/04/16 07:06 Dose: 2 mg Lactated Ringer's (Lactated Ringer's) 1,000 mls @ 200 mls/hr IV .Q5H [facility] Last Admin: 05/03/16 13:37 Dose: 200 mls/hr Ciprofloxacin (Cipro 400mg/200ml Dsw) 200 mls @ 200 mls/hr IVPB Q12 [facility] Last Admin: 05/03/16 20:02 Dose: 200 mls/hr Metronidazole (Flagyl 500mg/100ml Ns) 100 mls @ 100 mls/hr IVPB Q8 [facility] Last Admin: 05/04/16 00:52 Dose: 100 mls/hr Morphine Sulfate (Morphine) 2 mg IVP Q4 PRN PRN Reason: Pain, 2-5 Last Admin: 04/30/16 12:30 Dose: 2 mg Ondansetron HCl (Zofran Inj) 4 mg IVP Q6 PRN PRN Reason: Nausea/Vomiting Last Admin: 05/03/16 00:05 Dose: 4 mg Quetiapine Fumarate (Seroquel) 200 mg PO HS [facility] Last Admin: 05/03/16 22:05 Dose: 200 mg - Labs Labs: 05/04/16 05:45 05/04/16 05:45 PT 10.9 SECONDS (9.6-11.2) 05/03/16 05:05 INR 1.05 (0.92-1.08) 05/03/16 05:05 - Constitutional Appears: Well, Non-toxic, No Acute Distress - Head Exam Head Exam: ATRAUMATIC, NORMAL INSPECTION, NORMOCEPHALIC - Eye Exam Eye Exam: EOMI, Normal appearance, PERRL Pupil Exam: NORMAL ACCOMODATION, PERRL - ENT Exam ENT Exam: Mucous Membranes Moist, Normal Exam - Neck Exam Neck Exam: Full ROM, Normal Inspection. absent: Lymphadenopathy - Respiratory Exam Respiratory Exam: Clear to Ausculation Bilateral, NORMAL BREATHING PATTERN - Cardiovascular Exam Cardiovascular Exam: REGULAR RHYTHM, RRR, +S1, +S2. absent: Murmur - GI/Abdominal Exam GI & Abdominal Exam: Soft, Tenderness, Normal Bowel Sounds Additional comments: rlq tenderness - Extremities Exam Extremities Exam: Full ROM, Normal Capillary Refill, Normal Inspection. absent : Joint Swelling, Pedal Edema - Back Exam Back Exam: NORMAL INSPECTION - Neurological Exam Neurological Exam: Alert, Awake, CN II-XII Intact, Normal Gait, Oriented x3 - Psychiatric Exam Psychiatric exam: Normal Affect, Normal Mood - Skin Skin Exam: Dry, Intact, Normal Color, Warm Assessment and Plan (1) Pancreatitis, alcoholic, acute Assessment & Plan: ct today as still febrile w/ pain. pain control, cld gi fever control ivf cipro/flagyl Status: Acute (2) DVT prophylaxis Assessment & Plan: scd and ae hose ambulation Status: Acute (3) RLQ abdominal pain Status: Acute
[2016-05-04] MEDS: Amylase/Lipase/Protease 5,000 U ECC PO SCH ×3 (09:24→16:04)
[2016-05-04] MEDS: NICODERM CQ TOP SCH (09:25)
--- NOTE | 2016-05-04 10:24 | CP.PCM.PN ---
Subjective - Date & Time of Evaluation Date of Evaluation: 05/04/16 Time of Evaluation: 10:22 - Subjective Subjective: looks and feels better but still spiking temps and having RLQ pain denies n/v and is tolerating liquids PE: vss afebrile now abd - soft with +BS tender RLQ labs - LFT's WNL as is the CBC repeat CT scan - pending imp/plan: continue present care f/u CT scan repeat pancreatic enzymes in the morning Objective - Vital Signs/Intake and Output Vital Signs (last 24 hours): Temp Pulse Resp BP Pulse Ox 101.1 F H 92 H 20 127/77 95 05/04/16 09:23 05/04/16 08:32 05/04/16 08:32 05/04/16 08:32 05/04/16 08:32 - Medications Medications: Current Medications Acetaminophen (Tylenol 325mg Tab) 650 mg PO Q4 PRN PRN Reason: Temperature Last Admin: 05/04/16 09:23 Dose: 650 mg Amylase (Pancrease 25505 U-5000 U-20419 U) 10,000 u PO AC [facility] Last Admin: 05/04/16 09:24 Dose: 10,000 u Chlordiazepoxide (Librium) 25 mg PO Q6 PRN PRN Reason: tremor/alcohol withdrawal Last Admin: 05/03/16 22:26 Dose: 25 mg Clonazepam (Klonopin) 1 mg PO BID [facility] Last Admin: 05/04/16 09:23 Dose: 1 mg Escitalopram Oxalate (Lexapro) 20 mg PO DAILY [facility] Last Admin: 05/04/16 09:24 Dose: 20 mg Famotidine (Pepcid) 20 mg IVP Q12@0000,1200 [facility] Last Admin: 05/04/16 00:15 Dose: 20 mg Home Med (Patient's Own Medication) 1 unit TOP DAILY [facility] Last Admin: 05/04/16 09:25 Dose: 1 unit Hydromorphone HCl (Dilaudid) 2 mg IVP Q6 PRN PRN Reason: Pain, severe (8-10) Last Admin: 05/04/16 07:06 Dose: 2 mg Lactated Ringer's (Lactated Ringer's) 1,000 mls @ 200 mls/hr IV .Q5H [facility] Last Admin: 05/03/16 13:37 Dose: 200 mls/hr Ciprofloxacin (Cipro 400mg/200ml Dsw) 200 mls @ 200 mls/hr IVPB Q12 [facility] Last Admin: 05/04/16 08:27 Dose: 200 mls/hr Metronidazole (Flagyl 500mg/100ml Ns) 100 mls @ 100 mls/hr IVPB Q8 [facility] Last Admin: 05/04/16 08:38 Dose: 100 mls/hr Morphine Sulfate (Morphine) 2 mg IVP Q4 PRN PRN Reason: Pain, 2-5 Last Admin: 04/30/16 12:30 Dose: 2 mg Ondansetron HCl (Zofran Inj) 4 mg IVP Q6 PRN PRN Reason: Nausea/Vomiting Last Admin: 05/03/16 00:05 Dose: 4 mg Quetiapine Fumarate (Seroquel) 200 mg PO HS [facility] Last Admin: 05/03/16 22:05 Dose: 200 mg - Labs Labs: 05/04/16 05:45 05/04/16 05:45 PT 10.9 SECONDS (9.6-11.2) 05/03/16 05:05 INR 1.05 (0.92-1.08) 05/03/16 05:05
--- NOTE | 2016-05-04 10:57 | CT ---
PROCEDURE: CT Abdomen and Pelvis with contrast HISTORY: Pancreatitis COMPARISON: None. TECHNIQUE: Contrast dose: 95 mL Omnipaque 300 Radiation dose: Total exam DLP = 1012.36 mGy-cm. FINDINGS: LOWER THORAX: Linear atelectasis right lower lobe. Minimal compressive atelectasis right lower lobe. Small right pleural effusion. No left pleural effusion. LIVER: Hepatomegaly. Diffusely diminished attenuation of the liver consistent with fatty infiltration. No mass. No intrahepatic biliary ductal dilatation. GALLBLADDER AND BILE DUCTS: Unremarkable. PANCREAS: No pancreatic mass or ductal dilatation. Fluid seen about the pancreatic head and uncinate process of the pancreas as on prior examination. This fluid extends the in to the right paracolic gutter and along the right psoas muscle but there is no free fluid in the inferior pelvis. The extent of fluid along the right psoas muscle has increased slightly compared to the earlier examination. No evidence of abscess. There is minimal fluid seen along left psoas muscle and in the left pericolic gutter, unchanged from prior examination. SPLEEN: Unremarkable. ADRENALS: Unremarkable. No mass. KIDNEYS AND URETERS: Tiny nonobstructing calculus in the lower pole of each kidney. No mass. No hydronephrosis. VASCULATURE: Unremarkable. No aortic aneurysm. BOWEL: The previous mucosal thickening of the 3rd duodenum is no longer evident. There is marked mucosal thickening of the cecum/ascending colon on the current examination representing interval change from the prior examination. This is likely due to the surrounding pancreatic exudate. There is mucosal thickening of the gastric body unchanged from prior examination. Nonspecific. Consider correlation with upper endoscopy. Surgical anastomosis noted at rectosigmoid junction. APPENDIX: Not identified. PERITONEUM: As above. Pancreatic exudate extends along right pericolic gutter and is right psoas muscle. LYMPH NODES: Unremarkable. No enlarged lymph nodes. BLADDER: Mildly thickened bladder wall, diffusely, with perivesical fluid, likely pancreatic exudate but cannot rule out acute cystitis. Please correlate with urinalysis. REPRODUCTIVE: Normal prostate. BONES: No acute fracture. OTHER FINDINGS: None. IMPRESSION: Pancreatitis involving the pancreatic head with ADC date extending along right paracolic gutter and right psoas muscle, slightly increased in extent compared to 04/30/2016. Minimal fluid of along left psoas muscle and in left pericolic gutter, unchanged. New extensive mucosal thickening of the cecum/proximal ascending colon, secondary to surrounding pancreatic exudate. Resolve mucosal thickening of 3rd duodenum. Diffusely thickened bladder wall, nonspecific. Fluid about bladder may reflect pancreatic exudate but must rule out acute cystitis. Please correlate with urinalysis. Hepatomegaly. Fatty liver. Tiny nonobstructing bilateral renal calculi. .
[2016-05-04] MEDS: Lactated Ringer's 1,000 ML IV SCH ×2 (12:45→16:10)
[2016-05-04] MEDS ORDERED: Potassium Chloride 20 mEq ER Tab PO ONE (14:22)
[2016-05-04 19:07] LABS: RBC URINE 2 /hpf (0-3); URINE BILIRUBIN NEGATIVE (NEGATIVE); URINE BLOOD NEGATIVE (NEGATIVE); URINE COLOR YELLOW (YELLOW); URINE GLUCOSE (UA) NEG (Normal); URINE KETONE NEGATIVE (NEGATIVE); URINE LEUKOCYTE ESTERASE TRACE Leu/uL (Negative); URINE PROTEIN NEGATIVE (NEGATIVE); URINE UROBILINOGEN 0.2-1.0 mg/dL (0.2-1.0); WBC URINE 1 /hpf (0-5)
[2016-05-05] MEDS: metroNIDAZOLE 500mg/100ml NS 100 ML IVPB SCH ×3 (01:01→16:50)
[2016-05-05 06:26] LABS: BASO # 0.1 K/uL (0.0-0.2); BASO % 1.1 % (0.0-2.0); EOS # 0.1 K/uL (0.0-0.7); EOS % 1.2 % (0.0-4.0); HEMATOCRIT 37.9 % (35.0-51.0); LYMPH # 1.5 K/uL (1.0-4.3); LYMPH % 14.4 % (20.0-40.0); MEAN CELL VOLUME 98.8 fl (80.0-94.0); MEAN CORPUSCULAR HEMOGLOBIN 33.8 pg (27.0-31.0); MEAN CORPUSCULAR HGB CONC 34.2 g/dL (33.0-37.0); MEAN PLATELET VOLUME 8.4 fl (7.2-11.7); MONO # 1.5 K/uL (0.0-0.8); MONO % 14.2 % (0.0-10.0); NEUT # 7.3 K/uL (1.8-7.0); NEUT % 69.1 % (50.0-75.0); RED CELL DISTRIBUTION WIDTH 15.4 % (11.5-14.5); WHITE BLOOD COUNT 10.5 K/uL (4.8-10.8)
[2016-05-05 06:34] LABS: CHLORIDE 95 mmol/L (98-107); POTASSIUM 3.4 MMOL/L (3.6-5.0); SODIUM 136 mmol/l (132-148)
[2016-05-05 06:36] LABS: BILIRUBIN,TOTAL 0.6 mg/dl (0.2-1.3); CARBON DIOXIDE 28 mmol/L (22-30); GFR AFRICAN-AMERICAN > 60
[2016-05-05 06:37] LABS: ALB/GLOB RATIO 1.1 (1.0-2.1); ALKALINE PHOSPHATASE 62 U/L (38-126); ALT/SGPT 26 U/L (21-72); AST/SGOT 23 U/L (17-59); BLOOD UREA NITROGEN 3 mg/dl (9-20); CALCIUM 8.7 mg/dL (8.4-10.2); GLUCOSE,RANDOM 98 mg/dL (75-110); TOTAL PROTEIN 6.1 G/DL (6.3-8.2)
--- NOTE | 2016-05-05 07:59 | CP.PCM.PN ---
Subjective - Date & Time of Evaluation Date of Evaluation: 05/05/16 Time of Evaluation: 07:57 - Subjective Subjective: still w/ pain, still w/ fever no n/v. enrique cld ?? need to change anbx ct report noted case d/c yesterday w/ dr alarcon pt updated about all Objective - Vital Signs/Intake and Output Vital Signs (last 24 hours): Temp Pulse Resp BP Pulse Ox 100.3 F H 81 20 131/73 90 L 05/05/16 07:56 05/05/16 07:56 05/05/16 07:56 05/05/16 07:56 05/05/16 07:56 - Medications Medications: Current Medications Acetaminophen (Tylenol 325mg Tab) 650 mg PO Q4 PRN PRN Reason: Temperature Last Admin: 05/04/16 18:56 Dose: 650 mg Amylase (Pancrease 33084 U-5000 U-[id number] U) 10,000 u PO AC [facility] Last Admin: 05/04/16 16:04 Dose: 10,000 u Chlordiazepoxide (Librium) 25 mg PO Q6 PRN PRN Reason: tremor/alcohol withdrawal Last Admin: 05/04/16 22:02 Dose: 25 mg Clonazepam (Klonopin) 1 mg PO BID [facility] Last Admin: 05/04/16 16:06 Dose: 1 mg Escitalopram Oxalate (Lexapro) 20 mg PO DAILY [facility] Last Admin: 05/04/16 09:24 Dose: 20 mg Famotidine (Pepcid) 20 mg IVP Q12@0000,1200 [facility] Last Admin: 05/05/16 00:15 Dose: 20 mg Home Med (Patient's Own Medication) 1 unit TOP DAILY [facility] Last Admin: 05/04/16 09:25 Dose: 1 unit Hydromorphone HCl (Dilaudid) 2 mg IVP Q6 PRN PRN Reason: Pain, severe (8-10) Last Admin: 05/05/16 06:48 Dose: 2 mg Lactated Ringer's (Lactated Ringer's) 1,000 mls @ 200 mls/hr IV .Q5H [facility] Last Admin: 05/04/16 16:10 Dose: 200 mls/hr Ciprofloxacin (Cipro 400mg/200ml Dsw) 200 mls @ 200 mls/hr IVPB Q12 [facility] Last Admin: 05/04/16 20:11 Dose: 200 mls/hr Metronidazole (Flagyl 500mg/100ml Ns) 100 mls @ 100 mls/hr IVPB Q8 [facility] Last Admin: 05/05/16 01:01 Dose: 100 mls/hr Morphine Sulfate (Morphine) 2 mg IVP Q4 PRN PRN Reason: Pain, 2-5 Last Admin: 05/05/16 05:31 Dose: 2 mg Ondansetron HCl (Zofran Inj) 4 mg IVP Q6 PRN PRN Reason: Nausea/Vomiting Last Admin: 05/03/16 00:05 Dose: 4 mg Quetiapine Fumarate (Seroquel) 200 mg PO HS [facility] Last Admin: 05/04/16 22:00 Dose: 200 mg - Labs Labs: 05/05/16 05:45 05/05/16 05:45 PT 10.9 SECONDS (9.6-11.2) 05/03/16 05:05 INR 1.05 (0.92-1.08) 05/03/16 05:05 - Constitutional Appears: Well, Non-toxic, No Acute Distress - Head Exam Head Exam: ATRAUMATIC, NORMAL INSPECTION, NORMOCEPHALIC - Eye Exam Eye Exam: EOMI, Normal appearance, PERRL Pupil Exam: NORMAL ACCOMODATION, PERRL - ENT Exam ENT Exam: Mucous Membranes Moist, Normal Exam - Neck Exam Neck Exam: Full ROM, Normal Inspection. absent: Lymphadenopathy - Respiratory Exam Respiratory Exam: Clear to Ausculation Bilateral, NORMAL BREATHING PATTERN - Cardiovascular Exam Cardiovascular Exam: REGULAR RHYTHM, RRR, +S1, +S2. absent: Murmur - GI/Abdominal Exam GI & Abdominal Exam: Soft, Normal Bowel Sounds. absent: Tenderness - Extremities Exam Extremities Exam: Full ROM, Normal Capillary Refill, Normal Inspection. absent : Joint Swelling, Pedal Edema - Back Exam Back Exam: NORMAL INSPECTION - Neurological Exam Neurological Exam: Alert, Awake, CN II-XII Intact, Normal Gait, Oriented x3 - Psychiatric Exam Psychiatric exam: Normal Affect, Normal Mood - Skin Skin Exam: Dry, Intact, Normal Color, Warm Assessment and Plan (1) Pancreatitis, alcoholic, acute Assessment & Plan: cont cipro/flagyl - ?? dc cipro for zosyn cont pain control gi cld Status: Acute (2) DVT prophylaxis Assessment & Plan: scd and ae hose ambulation Status: Acute (3) RLQ abdominal pain Status: Acute
[2016-05-05] MEDS: Amylase/Lipase/Protease 5,000 U ECC PO SCH ×3 (08:51→16:49)
[2016-05-05] MEDS: NICODERM CQ TOP SCH (08:53)
[2016-05-05] MEDS: Piperacillin/Tazobact 3.375 GM in Sodium Chloride 0.9% 100 ML IVPB SCH ×3 (08:59→21:43)
[2016-05-05] MEDS: Lactated Ringer's 1,000 ML IV SCH ×4 (11:27→21:38)
[2016-05-05] MEDS ORDERED: Potassium Chloride 20 mEq ER Tab PO ONE (12:14)
--- NOTE | 2016-05-05 14:18 | CP.PCM.PN ---
Subjective - Date & Time of Evaluation Date of Evaluation: 05/05/16 Time of Evaluation: 14:16 - Subjective Subjective: GI: Dr. Jimenez Pt seen and examined. States he continues to have pain in his lower abdomen, and feels slightly bloated. He is tolerating CLD and having soft BMs. Denies N/ V. Continues to have fevers overnight. Objective - Vital Signs/Intake and Output Vital Signs (last 24 hours): Temp Pulse Resp BP Pulse Ox 98.8 F 81 20 131/73 90 L 05/05/16 09:13 05/05/16 07:56 05/05/16 07:56 05/05/16 07:56 05/05/16 07:56 - Medications Medications: Current Medications Acetaminophen (Tylenol 325mg Tab) 650 mg PO Q4 PRN PRN Reason: Temperature Last Admin: 05/04/16 18:56 Dose: 650 mg Amylase (Pancrease 87069 U-5000 U-[id number] U) 10,000 u PO AC [facility] Last Admin: 05/05/16 11:25 Dose: 10,000 u Chlordiazepoxide (Librium) 25 mg PO Q6 PRN PRN Reason: tremor/alcohol withdrawal Last Admin: 05/04/16 22:02 Dose: 25 mg Clonazepam (Klonopin) 1 mg PO BID [facility] Last Admin: 05/05/16 08:50 Dose: 1 mg Escitalopram Oxalate (Lexapro) 20 mg PO DAILY [facility] Last Admin: 05/05/16 08:52 Dose: 20 mg Famotidine (Pepcid) 20 mg IVP Q12@0000,1200 [facility] Last Admin: 05/05/16 11:25 Dose: 20 mg Home Med (Patient's Own Medication) 1 unit TOP DAILY [facility] Last Admin: 05/05/16 08:53 Dose: 1 unit Hydromorphone HCl (Dilaudid) 2 mg IVP Q6 PRN PRN Reason: Pain, severe (8-10) Last Admin: 05/05/16 13:07 Dose: 2 mg Lactated Ringer's (Lactated Ringer's) 1,000 mls @ 200 mls/hr IV .Q5H [facility] Last Admin: 05/05/16 11:27 Dose: 200 mls/hr Metronidazole (Flagyl 500mg/100ml Ns) 100 mls @ 100 mls/hr IVPB Q8 [facility] Last Admin: 05/05/16 08:50 Dose: 100 mls/hr Piperacillin Sod/Tazobactam (Sod 3.375 gm/ Sodium Chloride) 100 mls @ 100 mls/ hr IVPB Q6 [facility] Last Admin: 05/05/16 08:59 Dose: 100 mls/hr Morphine Sulfate (Morphine) 2 mg IVP Q4 PRN PRN Reason: Pain, 2-5 Last Admin: 05/05/16 11:24 Dose: 2 mg Ondansetron HCl (Zofran Inj) 4 mg IVP Q6 PRN PRN Reason: Nausea/Vomiting Last Admin: 05/03/16 00:05 Dose: 4 mg Quetiapine Fumarate (Seroquel) 200 mg PO HS [facility] Last Admin: 05/04/16 22:00 Dose: 200 mg - Labs Labs: 05/05/16 05:45 05/05/16 05:45 PT 10.9 SECONDS (9.6-11.2) 05/03/16 05:05 INR 1.05 (0.92-1.08) 05/03/16 05:05 - Constitutional Appears: No Acute Distress - Head Exam Head Exam: ATRAUMATIC, NORMOCEPHALIC - Eye Exam Eye Exam: Normal appearance - ENT Exam ENT Exam: Mucous Membranes Moist - Respiratory Exam Respiratory Exam: NORMAL BREATHING PATTERN - Cardiovascular Exam Cardiovascular Exam: RRR - GI/Abdominal Exam GI & Abdominal Exam: Distended, Soft, Tenderness (RLQ & suprapubic), Normal Bowel Sounds. absent: Guarding, Rebound - Extremities Exam Extremities Exam: absent: Tenderness - Neurological Exam Neurological Exam: Alert, Awake, Oriented x3 - Skin Skin Exam: Dry, Warm Assessment and Plan - Assessment and Plan (Free Text) Assessment: 41M with acute on chronic pancreatitis now complicated with intraperitoneal fluid collection most prominently in RLQ Plan: - continues to have fevers however w/o a white count - IV ABX switched today to broad spectrum coverage with Zosyn & Flagyl - case was discussed with Dr. Jimenez as well as Dr. Mckeon who will review recent CT scan and decide if pt is amenable to percutaneous drainage - will make NPO for tomorrow morning Rosalva Campbell, PGY-2
--- NOTE | 2016-05-05 18:34 | RAD ---
HISTORY: low spo2, fever COMPARISON: 04/29/2016. TECHNIQUE: Chest PA and lateral FINDINGS: LUNGS: No active pulmonary disease. PLEURA: No significant pleural effusion identified. No pneumothorax apparent. CARDIOVASCULAR: Normal. OSSEOUS STRUCTURES: No significant abnormalities. VISUALIZED UPPER ABDOMEN: Normal. OTHER FINDINGS: None. IMPRESSION: No active disease. No significant interval change compared to the prior examination(s).
[2016-05-06] MEDS: metroNIDAZOLE 500mg/100ml NS 100 ML IVPB SCH ×3 (01:24→16:24)
[2016-05-06] MEDS: Piperacillin/Tazobact 3.375 GM in Sodium Chloride 0.9% 100 ML IVPB SCH (04:10)
[2016-05-06] MEDS: Lactated Ringer's 1,000 ML IV SCH ×4 (06:32→17:11)
[2016-05-06 07:14] LABS: BASO # 0.1 K/uL (0.0-0.2); EOS # 0.1 K/uL (0.0-0.7); EOS % 1.4 % (0.0-4.0); HEMATOCRIT 36.9 % (35.0-51.0); LYMPH # 1.7 K/uL (1.0-4.3); MEAN CELL VOLUME 97.3 fl (80.0-94.0); MEAN CORPUSCULAR HEMOGLOBIN 33.6 pg (27.0-31.0); MEAN CORPUSCULAR HGB CONC 34.5 g/dL (33.0-37.0); MEAN PLATELET VOLUME 8.3 fl (7.2-11.7); MONO # 1.3 K/uL (0.0-0.8); MONO % 13.3 % (0.0-10.0); NEUT # 6.4 K/uL (1.8-7.0); NEUT % 66.3 % (50.0-75.0); RED CELL DISTRIBUTION WIDTH 15.3 % (11.5-14.5); WHITE BLOOD COUNT 9.6 K/uL (4.8-10.8)
[2016-05-06 07:21] LABS: ALKALINE PHOSPHATASE 63 U/L (38-126); ALT/SGPT 31 U/L (21-72); AST/SGOT 25 U/L (17-59); BILIRUBIN,TOTAL 0.5 mg/dl (0.2-1.3); BLOOD UREA NITROGEN 4 mg/dl (9-20); CALCIUM 8.7 mg/dL (8.4-10.2); CARBON DIOXIDE 28 mmol/L (22-30); CHLORIDE 99 mmol/L (98-107); GFR AFRICAN-AMERICAN > 60; GLUCOSE,RANDOM 94 mg/dL (75-110); POTASSIUM 3.2 MMOL/L (3.6-5.0); SODIUM 136 mmol/l (132-148)
[2016-05-06] MEDS: Amylase/Lipase/Protease 5,000 U ECC PO SCH ×4 (09:09→16:23)
[2016-05-06] MEDS: NICODERM CQ TOP SCH (09:09)
[2016-05-06] MEDS: Piperacillin/Tazobact 3.375 GM in Sodium Chloride 0.9% 50 ML IVPB SCH ×2 (09:10→16:24)
--- NOTE | 2016-05-06 09:10 | CP.PCM.PN ---
Subjective - Date & Time of Evaluation Date of Evaluation: 05/06/16 Time of Evaluation: 09:10 - Subjective Subjective: pt doing well, less pain, now described as tightness to abd. no f/c since las tnight s/p abd drainage. c/s negative thus far. per gi can adv to bland diet. possible dc tongiht. Objective - Vital Signs/Intake and Output Vital Signs (last 24 hours): Temp Pulse Resp BP Pulse Ox 99.5 F 92 H 20 146/67 95 05/06/16 08:10 05/06/16 08:10 05/06/16 08:10 05/06/16 08:10 05/06/16 08:10 - Medications Medications: Current Medications Acetaminophen (Tylenol 325mg Tab) 650 mg PO Q4 PRN PRN Reason: Temperature Last Admin: 05/04/16 18:56 Dose: 650 mg Amylase (Pancrease 88881 U-5000 U-[id number] U) 10,000 u PO AC [facility] Last Admin: 05/06/16 09:09 Dose: 10,000 u Chlordiazepoxide (Librium) 25 mg PO Q6 PRN PRN Reason: tremor/alcohol withdrawal Last Admin: 05/05/16 21:18 Dose: 25 mg Clonazepam (Klonopin) 1 mg PO BID [facility] Last Admin: 05/06/16 09:08 Dose: 1 mg Escitalopram Oxalate (Lexapro) 20 mg PO DAILY [facility] Last Admin: 05/06/16 09:09 Dose: 20 mg Famotidine (Pepcid) 20 mg PO BID [facility] Home Med (Patient's Own Medication) 1 unit TOP DAILY [facility] Last Admin: 05/06/16 09:09 Dose: 1 unit Hydromorphone HCl (Dilaudid) 2 mg IVP Q6 PRN PRN Reason: Pain, severe (8-10) Last Admin: 05/06/16 07:18 Dose: 2 mg Lactated Ringer's (Lactated Ringer's) 1,000 mls @ 200 mls/hr IV .Q5H [facility] Last Admin: 05/06/16 06:32 Dose: 200 mls/hr Metronidazole (Flagyl 500mg/100ml Ns) 100 mls @ 100 mls/hr IVPB Q8 [facility] Last Admin: 05/06/16 09:09 Dose: 100 mls/hr Piperacillin Sod/Tazobactam (Sod 3.375 gm/ Sodium Chloride) 50 mls @ 50 mls/hr IVPB Q6 [facility] Last Admin: 05/06/16 09:10 Dose: 50 mls/hr Morphine Sulfate (Morphine) 2 mg IVP Q4 PRN PRN Reason: Pain, 2-5 Last Admin: 05/06/16 05:54 Dose: 2 mg Ondansetron HCl (Zofran Inj) 4 mg IVP Q6 PRN PRN Reason: Nausea/Vomiting Last Admin: 05/03/16 00:05 Dose: 4 mg Quetiapine Fumarate (Seroquel) 200 mg PO HS [facility] Last Admin: 05/05/16 21:44 Dose: 200 mg - Labs Labs: 05/06/16 05:55 05/06/16 05:55 PT 10.9 SECONDS (9.6-11.2) 05/03/16 05:05 INR 1.05 (0.92-1.08) 05/03/16 05:05 - Constitutional Appears: Well, Non-toxic, No Acute Distress - Head Exam Head Exam: ATRAUMATIC, NORMAL INSPECTION, NORMOCEPHALIC - Eye Exam Eye Exam: EOMI, Normal appearance, PERRL Pupil Exam: NORMAL ACCOMODATION, PERRL - ENT Exam ENT Exam: Mucous Membranes Moist, Normal Exam - Neck Exam Neck Exam: Full ROM, Normal Inspection. absent: Lymphadenopathy - Respiratory Exam Respiratory Exam: Clear to Ausculation Bilateral, NORMAL BREATHING PATTERN - Cardiovascular Exam Cardiovascular Exam: REGULAR RHYTHM, RRR, +S1, +S2. absent: Murmur - GI/Abdominal Exam GI & Abdominal Exam: Soft, Normal Bowel Sounds. absent: Tenderness - Extremities Exam Extremities Exam: Full ROM, Normal Capillary Refill, Normal Inspection. absent : Joint Swelling, Pedal Edema - Back Exam Back Exam: NORMAL INSPECTION - Neurological Exam Neurological Exam: Alert, Awake, CN II-XII Intact, Normal Gait, Oriented x3 - Psychiatric Exam Psychiatric exam: Normal Affect, Normal Mood - Skin Skin Exam: Dry, Intact, Normal Color, Warm Assessment and Plan (1) Pancreatitis, alcoholic, acute Assessment & Plan: doign well, adv diet per gi cont pain control gi possible dc tongiht or tomorrow Status: Acute (2) DVT prophylaxis Assessment & Plan: scd and aehose ambulation Status: Acute (3) RLQ abdominal pain Status: Acute
[2016-05-06] MEDS ORDERED: Oxycodone/Acetaminophen 5/325 mg Tab PO PRN (09:33)
[2016-05-06] MEDS ORDERED: Oxycodone/Acetaminophen 5/325 mg Tab PO ONE (11:05)
[2016-05-06] MEDS ORDERED: Potassium Chloride 20 mEq ER Tab PO SCH (11:15)
--- NOTE | 2016-05-06 13:20 | CP.PCM.PN ---
Subjective - Date & Time of Evaluation Date of Evaluation: 05/06/16 Time of Evaluation: 13:18 - Subjective Subjective: GI: Dr. Jimenez Pt seen and examined. s/p IR drainage, states he feels a lot better today and abdominal pain is starting to resolve. Admits to tolerating clears and ambulating. Having BMs. Denies N/V. No fevers overnight. Objective - Vital Signs/Intake and Output Vital Signs (last 24 hours): Temp Pulse Resp BP Pulse Ox 99.5 F 92 H 20 146/67 95 05/06/16 08:10 05/06/16 08:10 05/06/16 08:10 05/06/16 08:10 05/06/16 08:10 - Medications Medications: Current Medications Acetaminophen (Tylenol 325mg Tab) 650 mg PO Q4 PRN PRN Reason: Temperature Last Admin: 05/04/16 18:56 Dose: 650 mg Amylase (Pancrease 80173 U-5000 U-[id number] U) 10,000 u PO AC [facility] Last Admin: 05/06/16 12:44 Dose: 10,000 u Chlordiazepoxide (Librium) 25 mg PO Q6 PRN PRN Reason: tremor/alcohol withdrawal Last Admin: 05/05/16 21:18 Dose: 25 mg Clonazepam (Klonopin) 1 mg PO BID [facility] Last Admin: 05/06/16 09:08 Dose: 1 mg Escitalopram Oxalate (Lexapro) 20 mg PO DAILY [facility] Last Admin: 05/06/16 09:09 Dose: 20 mg Famotidine (Pepcid) 20 mg PO BID [facility] Home Med (Patient's Own Medication) 1 unit TOP DAILY [facility] Last Admin: 05/06/16 09:09 Dose: 1 unit Hydromorphone HCl (Dilaudid) 2 mg IVP Q6 PRN PRN Reason: Pain, severe (8-10) Last Admin: 05/06/16 13:05 Dose: 2 mg Lactated Ringer's (Lactated Ringer's) 1,000 mls @ 200 mls/hr IV .Q5H [facility] Last Admin: 05/06/16 12:46 Dose: Not Given Metronidazole (Flagyl 500mg/100ml Ns) 100 mls @ 100 mls/hr IVPB Q8 [facility] Last Admin: 05/06/16 09:09 Dose: 100 mls/hr Piperacillin Sod/Tazobactam (Sod 3.375 gm/ Sodium Chloride) 50 mls @ 50 mls/hr IVPB Q6 [facility] Last Admin: 05/06/16 09:10 Dose: 50 mls/hr Ondansetron HCl (Zofran Inj) 4 mg IVP Q6 PRN PRN Reason: Nausea/Vomiting Last Admin: 05/03/16 00:05 Dose: 4 mg Oxycodone/Acetaminophen (Percocet 5/325 Mg Tab) 2 tab PO Q4 PRN PRN Reason: Pain, moderate (4-7) Stop: 05/09/16 09:34 Potassium Chloride (K-Dur 20 Meq Er Tab) 40 meq PO DAILY [facility] Last Admin: 05/06/16 11:35 Dose: 40 meq Quetiapine Fumarate (Seroquel) 200 mg PO HS [facility] Last Admin: 05/05/16 21:44 Dose: 200 mg - Labs Labs: 05/06/16 05:55 05/06/16 05:55 PT 10.9 SECONDS (9.6-11.2) 05/03/16 05:05 INR 1.05 (0.92-1.08) 05/03/16 05:05 - Constitutional Appears: Well, No Acute Distress - Head Exam Head Exam: ATRAUMATIC, NORMOCEPHALIC - Eye Exam Eye Exam: Normal appearance - ENT Exam ENT Exam: Mucous Membranes Moist - Respiratory Exam Respiratory Exam: NORMAL BREATHING PATTERN - Cardiovascular Exam Cardiovascular Exam: RRR - GI/Abdominal Exam GI & Abdominal Exam: Soft, Tenderness (RLQ). absent: Distended, Guarding, Rebound - Neurological Exam Neurological Exam: Alert, Awake, Oriented x3 - Skin Skin Exam: Dry, Warm Assessment and Plan - Assessment and Plan (Free Text) Assessment: 41M admitted for pancreatitis s/p IR drainage of RLQ collection Plan: - afebrile for last 12 hours - cont IV ABX - will advance diet as tolerated - d/w Dr. Barbara Campbell, PGY-2
[2016-05-06] MEDS: Oxycodone/Acetaminophen 5/325 mg Tab PO PRN ×2 (15:08→18:42)
[2016-05-06 15:52] VITALS: BP 138/85; PULSE 63; RESP 18; TEMP 98.2; O2SAT 96
--- NOTE | 2016-05-06 18:14 | CP.PCM.DIS ---
Provider - Provider Date of Admission: 04/30/16 17:33 Attending physician: Malissa Johnson MD Time Spent in preparation of Discharge (in minutes): 15 Diagnosis - Discharge Diagnosis (1) Pancreatitis, alcoholic, acute Status: Acute Priority: High (2) DVT prophylaxis Status: Acute (3) RLQ abdominal pain Status: Acute Hospital Course - Lab Results Lab Results: Micro Results 05/04/16 17:21 Urine,Clean Catch Urine Culture - Final No Growth (<1,000 CFU/ML) 05/05/16 16:30 Abdominal Fluid Gram Stain - Final 05/05/16 16:30 Abdominal Fluid Body Fluid Culture - Preliminary NO GROWTH AFTER 24 HOURS Most Recent Lab Values WBC 9.6 K/uL (4.8-10.8) 05/06/16 05:55 RBC 3.79 Mil/uL (4.40-5.90) L 05/06/16 05:55 Hgb 12.7 g/dL (12.0-18.0) 05/06/16 05:55 Hct 36.9 % (35.0-51.0) 05/06/16 05:55 MCV 97.3 fl (80.0-94.0) H 05/06/16 05:55 MCH 33.6 pg (27.0-31.0) H 05/06/16 05:55 MCHC 34.5 g/dL (33.0-37.0) 05/06/16 05:55 RDW 15.3 % (11.5-14.5) H 05/06/16 05:55 Plt Count 324 K/uL (130-400) 05/06/16 05:55 MPV 8.3 fl (7.2-11.7) 05/06/16 05:55 Neut % (Auto) 66.3 % (50.0-75.0) 05/06/16 05:55 Lymph % (Auto) 18.0 % (20.0-40.0) L 05/06/16 05:55 [place] % (Auto) 13.3 % (0.0-10.0) H 05/06/16 05:55 Eos % (Auto) 1.4 % (0.0-4.0) 05/06/16 05:55 Baso % (Auto) 1.0 % (0.0-2.0) 05/06/16 05:55 Neut # 6.4 K/uL (1.8-7.0) 05/06/16 05:55 Lymph # 1.7 K/uL (1.0-4.3) 05/06/16 05:55 [place] # 1.3 K/uL (0.0-0.8) H 05/06/16 05:55 Eos # 0.1 K/uL (0.0-0.7) 05/06/16 05:55 Baso # 0.1 K/uL (0.0-0.2) 05/06/16 05:55 PT 10.9 SECONDS (9.6-11.2) 05/03/16 05:05 INR 1.05 (0.92-1.08) 05/03/16 05:05 Sodium 136 mmol/l (132-148) 05/06/16 05:55 Potassium 3.2 MMOL/L (3.6-5.0) L 05/06/16 05:55 Chloride 99 mmol/L (98-107) 05/06/16 05:55 Carbon Dioxide 28 mmol/L (22-30) 05/06/16 05:55 Anion Gap 12 (10-20) 05/06/16 05:55 BUN 4 mg/dl (9-20) L 05/06/16 05:55 Creatinine 0.6 mg/dL (0.8-1.5) L 05/06/16 05:55 Est GFR ( Amer) > 60 05/06/16 05:55 Est GFR (Non-Af Amer) > 60 05/06/16 05:55 Random Glucose 94 mg/dL (75-110) 05/06/16 05:55 Calcium 8.7 mg/dL (8.4-10.2) 05/06/16 05:55 Total Bilirubin 0.5 mg/dl (0.2-1.3) 05/06/16 05:55 AST 25 U/L (17-59) 05/06/16 05:55 ALT 31 U/L (21-72) 05/06/16 05:55 Alkaline Phosphatase 63 U/L (38-126) 05/06/16 05:55 Ammonia 17 umo/L (16-60) 05/03/16 05:05 Total Protein 6.0 G/DL (6.3-8.2) L 05/06/16 05:55 Albumin 3.0 g/dL (3.5-5.0) L 05/06/16 05:55 Globulin 2.9 gm/dL (2.2-3.9) 05/06/16 05:55 Albumin/Globulin Ratio 1.0 (1.0-2.1) 05/06/16 05:55 Amylase 54 U/L (30-110) 05/05/16 07:56 Lipase 236 U/L (23-300) 05/02/16 05:30 Urine Color Yellow (YELLOW) 05/04/16 17:21 Urine Clarity Clear (Clear) 05/04/16 17:21 Urine pH 6.0 (5.0-8.0) 05/04/16 17:21 Ur Specific Herald 1.021 (1.003-1.030) 05/04/16 17:21 Urine Protein Negative mg/dL (NEGATIVE) 05/04/16 17:21 Urine Glucose (UA) Neg mg/dL (Normal) 05/04/16 17:21 Urine Ketones Negative mg/dL (NEGATIVE) 05/04/16 17:21 Urine Blood Negative (NEGATIVE) 05/04/16 17:21 Urine Nitrate Negative (NEGATIVE) 05/04/16 17:21 Urine Bilirubin Negative (NEGATIVE) 05/04/16 17:21 Urine Urobilinogen 0.2-1.0 mg/dL (0.2-1.0) 05/04/16 17:21 Ur Leukocyte Esterase Trace Doyle/uL (Negative) 05/04/16 17:21 Urine RBC (Auto) 2 /hpf (0-3) 05/04/16 17:21 Urine Microscopic WBC 1 /hpf (0-5) 05/04/16 17:21 Ur Squamous Epith Cells < 1 /hpf (0-5) 05/04/16 17:21 Alcohol, Quantitative < 10 mg/dl (0-10) 04/30/16 05:30 Discharge Exam - Head Exam Head Exam: ATRAUMATIC, NORMAL INSPECTION, NORMOCEPHALIC Discharge Plan - Discharge Medications Prescriptions: Amoxicillin/Clavulanate [Augmentin 875 MG-125 MG] 1 tab PO Q12 #14 tab Metronidazole [Flagyl] 500 mg PO TID #21 tablet oxyCODONE/Acetaminophen [Percocet 5/325 mg Tab] 1 tab PO Q4H PRN #5 tab PRN Reason: pain - Follow Up Plan Condition: STABLE Disposition: HOME/ ROUTINE Instructions: Pancreatitis (DC) Additional Instructions: pt ate bland diet and it pain/fever free. cleared by gi for dc and outpt f/u and po pain meds/anbx final dx-pancreatitis s/p transabd pancreatic exudate drainage f/u rmg/pmd 2 days,r evelia prn, f/u gi as directed diet/activity as enrique opbserve for fevers, rted prn. meds per med rec Referrals: Jose Eduardo Jimenez MD, PhD [Staff Provider] - Natanael Johnson, LAZARA, [employer] [Advanced Practice Nurse] -
--- NOTE | 2016-05-09 16:33 | CT ---
Drainage of right lower extremity fluid collection History: Right-sided abdominal pain and fluid collection. Comparison: Comparison is made to CT scan of the abdomen and pelvis from 04/30/2016 and 05/04/2016. Anesthesia: Local lidocaine. Procedure and findings: The procedure was explained to the patient including relative risks and benefits and informed consent was obtained. The right lower quadrant was prepped and draped in usual sterile techniques. 1 percent lidocaine was used to anesthetize the skin and the underlying subcutaneous tissue. A 5 Uzbek centesis catheter was introduced into the right lower quadrant fluid collection under ultra sound guidance. Approximately 30 mL of serosanguineous fluid was aspirated. The fluid was sent for microbiologic analysis. The patient tolerated the procedure well. Impression: Successful drainage of approximately 30 mL of serosanguineous fluid from the left lower quadrant fluid collection.
== END 2016-05-06 19:29 | disposition home or self-care (01) | DRG 440 ==
LOC: H.ER 03:43 → H.ERHOLD 05:26 → H.MEDSURG1 08:37 → OBSVTOIN 04-30 17:33 → H.MEDSURG1 05-04 17:12
PROVIDERS: ADMIT Family Medicine; ATTEND Family Medicine
DX: K85.20 Alcohol induced acute pancreatitis without necrosis or infection (principal); I10 Essential (primary) hypertension; K86.0 Alcohol-induced chronic pancreatitis

== ENCOUNTER 2016-05-08 17:23 | Observation (INO) | payer OTHER ==
[2016-05-08 17:23] VITALS: BMI 25.1
[2016-05-08] MEDS ORDERED: Sodium Chloride 0.9% 1,000 ML IV STA (17:46)
[2016-05-08 17:59] LABS: BASO # 0.1 K/uL (0.0-0.2); BASO % 1.2 % (0.0-2.0); EOS # 0.2 K/uL (0.0-0.7); EOS % 1.7 % (0.0-4.0); HEMATOCRIT 39.6 % (35.0-51.0); LYMPH # 2.3 K/uL (1.0-4.3); LYMPH % 20.4 % (20.0-40.0); MEAN CELL VOLUME 98.6 fl (80.0-94.0); MEAN CORPUSCULAR HEMOGLOBIN 32.8 pg (27.0-31.0); MEAN CORPUSCULAR HGB CONC 33.3 g/dL (33.0-37.0); MEAN PLATELET VOLUME 8.2 fl (7.2-11.7); MONO # 0.7 K/uL (0.0-0.8); MONO % 6.7 % (0.0-10.0); NEUT # 7.8 K/uL (1.8-7.0); NRBC % 0.1 % (0.0-0.0); PLATELET COUNT 515 K/uL (130-400); RED CELL DISTRIBUTION WIDTH 15.9 % (11.5-14.5); WHITE BLOOD COUNT 11.2 K/uL (4.8-10.8)
[2016-05-08 18:07] LABS: ALB/GLOB RATIO 1.1 (1.0-2.1); ALKALINE PHOSPHATASE 65 U/L (38-126); ALT/SGPT 35 U/L (21-72); AMYLASE 67 U/L (30-110); AST/SGOT 25 U/L (17-59); BILIRUBIN,TOTAL 0.2 mg/dl (0.2-1.3); BLOOD UREA NITROGEN 8 mg/dl (9-20); CALCIUM 8.7 mg/dL (8.4-10.2); CARBON DIOXIDE 24 mmol/L (22-30); CHLORIDE 102 mmol/L (98-107); GFR AFRICAN-AMERICAN > 60; GLUCOSE,RANDOM 128 mg/dL (75-110); LIPASE 625 U/L (23-300); MAGNESIUM 2.3 MG/DL (1.6-2.3); POTASSIUM 3.9 MMOL/L (3.6-5.0); SODIUM 142 mmol/l (132-148); TOTAL PROTEIN 6.6 G/DL (6.3-8.2)
--- NOTE | 2016-05-08 18:32 | ED PDOC ---
HPI: Abdomen Time Seen by Provider: 05/08/16 17:41 Chief Complaint (Nursing): Chest Pain Chief Complaint (Provider): Abdominal Pain History Per: Patient History/Exam Limitations: no limitations Onset/Duration Of Symptoms: Days (2x) Current Symptoms Are (Timing): Still Present Severity: Moderate Location Of Pain/Discomfort: Diffuse Associated Symptoms: Nausea. denies: Fever, Vomiting, Diarrhea, Other ( shortness of breath) Additional Complaint(s): 41 year old male with a pertinent medical history of pancreatitis secondary to EtOH abuse (but reports that he doesn't drink anymore) presents to the ED with complaints of abdominal pain that has persisted for the past 2x days. He reports that he was recently discharged from the hospital 2x days ago after he was admitted 9x days ago. He reports that his abdomen feels full and radiates to his chest. He has associated symptoms of nausea, but denies having shortness of breath, fever, vomiting, and diarrhea. PMD: Taj Faye MD Past Medical History Reviewed: Historical Data, Nursing Documentation, Vital Signs Vital Signs: Last Vital Signs Temp 98.6 F 05/08/16 17:27 Pulse 83 05/08/16 17:30 Resp 16 05/08/16 17:27 BP 103/67 05/08/16 17:27 Pulse Ox 96 05/08/16 19:04 - Medical History PMH: Anxiety, Depression, Diverticulitis, Gastritis, HTN, Hypercholesterolemia, Hyperlipidemia, Pancreatitis Denies: Diabetes, Hepatitis, HIV, Chronic Kidney Disease, Seizures, Sexually Transmitted Disease - Family History Family History: States: Unknown Family Hx, CAD (in father) - Social History Alcohol: Other (history of EtOH abuse, pt reports he no longer drinks) Drugs: Denies - Home Medications Home Medications: Ambulatory Orders Medication Instructions Recorded Amlodipine Besylate/Benazepril 1 cap PO DAILY 08/11/15 [Lotrel 5-20 mg Capsule] Omeprazole Magnesium [Prilosec Otc] 1 tab PO DAILY 08/11/15 clonazePAM [Klonopin] 1 mg PO BID 08/11/15 Escitalopram [Lexapro] 20 mg PO DAILY 04/29/16 QUEtiapine [SEROquel] 200 mg PO HS 04/29/16 oxyCODONE/Acetaminophen [Percocet 1 tab PO Q4H PRN #5 tab 04/30/16 5/325 mg Tab] Amoxicillin/Clavulanate [Augmentin 1 tab PO Q12 #14 tab 05/06/16 875 MG-125 MG Tab] Metronidazole [Flagyl] 500 mg PO TID #21 tablet 05/06/16 - Allergies Allergies/Adverse Reactions: Allergies Allergy/AdvReac Type Severity Reaction Status Date / Time No Known Allergies Allergy Verified 05/08/16 17:26 Review of Systems ROS Statement: Except As Marked, All Systems Reviewed And Found Negative Constitutional: Negative for: Fever Cardiovascular: Positive for: Chest Pain Respiratory: Negative for: Shortness of Breath Gastrointestinal: Positive for: Nausea, Abdominal Pain. Negative for: Vomiting , Diarrhea Physical Exam - Reviewed Nursing Documentation Reviewed: Yes Vital Signs Reviewed: Yes - Physical Exam Appears: Positive for: Well, Non-toxic, In Acute Distress (mild painful distress ) Head Exam: Positive for: ATRAUMATIC Skin: Positive for: Warm, Dry, Pallor (facial) Eye Exam: Positive for: Normal appearance Neck: Positive for: Normal, Painless ROM Cardiovascular/Chest: Positive for: Regular Rate, Rhythm, Chest Non Tender Respiratory: Positive for: Normal Breath Sounds. Negative for: Respiratory Distress Gastrointestinal/Abdominal: Positive for: Bowel Sounds (active ), Tenderness ( mild diffuse abdominal tenderness greatest in the right mid ). Negative for: Distended, Guarding, Rebound, Asicites Back: Positive for: Normal Inspection. Negative for: L CVA Tenderness, R CVA Tenderness Extremity: Positive for: Normal ROM, Capillary Refill (normal ). Negative for: Tenderness Neurologic/Psych: Positive for: Alert, Oriented (3x), Gait (normal ). Negative for: Motor/Sensory Deficits - Laboratory Results Result Diagrams: 05/08/16 17:54 05/08/16 17:54 - ECG ECG: Positive for: Interpreted By Me, Viewed By Me ECG Rhythm: Positive for: Sinus Rhythm (normal at 78) O2 Sat by Pulse Oximetry: 96 (RA) Pulse Ox Interpretation: Normal Medical Decision Making Medical Decision Makin:41 Initial impression: 41 year old male patient with chronic pancreatitis was recently discharged from ED for pancreatitis. Rule out pancreatitis. Initial plan: * reviewed CT from 05/04/16, showed fluid around pancreas, no abscess, and showed fluid tracking down psoas muscle * XRay chest 2 views * EKG * amylase * CMP * lactic acid, plasma * lipase * magnesium * troponin I * CBC * PTT * prothrombin time * morphine 4mg IVP * sodium chloride 1,000ml IV 1,000mls/hr * reevaluation Scribe Attestation: Documented by Kathy Hensley, acting as a scribe for Garrett MESA. Provider Scribe Attestation: All medical record entries made by the Scribe were at my direction and personally dictated by me. I have reviewed the chart and agree that the record accurately reflects my personal performance of the history, physical exam, medical decision making, and the department course for this patient. I have also personally directed, reviewed, and agree with the discharge instructions and disposition. labs reviewed. lipase 625, amylase wnl trop negative chest negative call placed to Dr. Jimenez GI doctor. Disposition - Clinical Impression Clinical Impression: Abdominal pain, Pancreatitis, alcoholic, acute - Patient ED Disposition Is Patient to be Admitted: Yes Counseled Patient/Family Regarding: Studies Performed, Diagnosis - Disposition Disposition Time: 20:03 Condition: STABLE - Pt Status Changed To: Hospital Disposition Of: Observation
[2016-05-08 18:36] LABS: EOSINOPHIL 5 % (0-7); NEUTROPHIL 67 % (42-75); REACTIVE LYMPHOCYTES 1 % (0-0); TOTAL CELLS COUNTED 100
[2016-05-08 18:37] LABS: GIANT PLATELETS PRESENT; LARGE PLATELETS PRESENT
[2016-05-08 19:01] LABS: PARTIAL THROMBOPLASTIN TIME 29.4 SECONDS (23.3-32.5)
[2016-05-08] MEDS ORDERED: Oxycodone/Acetaminophen 5/325 mg Tab PO PRN (21:51)
[2016-05-08] MEDS: Lactated Ringer's 1,000 ML IV SCH (22:14)
[2016-05-09] MEDS: Lactated Ringer's 1,000 ML IV SCH (06:19)
[2016-05-09 07:06] LABS: BASO # 0.1 K/uL (0.0-0.2); BASO % 0.9 % (0.0-2.0); EOS # 0.1 K/uL (0.0-0.7); EOS % 1.2 % (0.0-4.0); HEMATOCRIT 37.5 % (35.0-51.0); LYMPH # 2.1 K/uL (1.0-4.3); LYMPH % 19.7 % (20.0-40.0); MEAN CELL VOLUME 97.7 fl (80.0-94.0); MEAN CORPUSCULAR HEMOGLOBIN 32.4 pg (27.0-31.0); MEAN CORPUSCULAR HGB CONC 33.1 g/dL (33.0-37.0); MEAN PLATELET VOLUME 8.3 fl (7.2-11.7); NEUT # 7.3 K/uL (1.8-7.0); NEUT % 69.2 % (50.0-75.0); RED CELL DISTRIBUTION WIDTH 15.8 % (11.5-14.5); WHITE BLOOD COUNT 10.5 K/uL (4.8-10.8)
--- NOTE | 2016-05-09 07:25 | CP.PCM.HP ---
History of Present Illness - History of Present Illness History of Present Illness: pt admitted for continued pain r/t pancreatitis. no f/c, n/v/d. enrique po in small , balnd amts. bw noted and repeated bw this am noted. abd assessment benign compared to previous.imaging reviewed Present on Admission - Present on Admission Any Indicators Present on Admission: No Review of Systems - Gastrointestinal Gastrointestinal: As Per HPI, Abdominal Pain Past Patient History - Tetanus Immunizations Tetanus Immunization: Unknown - Past Medical History & Family History Past Medical History?: Yes - Past Social History Smoking Status: Heavy Smoker > 10 Cigarettes Daily - CARDIAC Hx Cardiac Disorders: Yes - PULMONARY Hx Respiratory Disorders: No - NEUROLOGICAL Hx Neurological Disorder: No - HEENT Hx HEENT Problems: No - RENAL Hx Chronic Kidney Disease: No - ENDOCRINE/METABOLIC Hx Endocrine Disorders: No - HEMATOLOGICAL/ONCOLOGICAL Hx Blood Disorders: No - INTEGUMENTARY Hx Dermatological Problems: No - MUSCULOSKELETAL/RHEUMATOLOGICAL Hx Musculoskeletal Disorders: No - GASTROINTESTINAL Hx Diverticulitis: Yes Hx Gastritis: Yes Hx Pancreatitis: Yes - GENITOURINARY/GYNECOLOGICAL Hx Genitourinary Disorders: No - PSYCHIATRIC Hx Psychophysiologic Disorder: Yes - SURGICAL HISTORY Hx Surgeries: Yes Other/Comment: Hx colon resection 2008. Hx B/L knee surgery for meniscus 2004 - ANESTHESIA Hx Anesthesia: Yes Hx Anesthesia Reactions: No Meds Allergies/Adverse Reactions: Allergies Allergy/AdvReac Type Severity Reaction Status Date / Time No Known Allergies Allergy Verified 05/08/16 17:26 Physical Exam - Constitutional Appears: Well, Non-toxic, No Acute Distress - Head Exam Head Exam: ATRAUMATIC, NORMAL INSPECTION, NORMOCEPHALIC - Eye Exam Eye Exam: EOMI, Normal appearance, PERRL Pupil Exam: NORMAL ACCOMODATION, PERRL - ENT Exam ENT Exam: Mucous Membranes Moist, Normal Exam - Neck Exam Neck exam: Positive for: Normal Inspection - Respiratory Exam Respiratory Exam: Clear to Auscultation Bilateral, NORMAL BREATHING PATTERN - Cardiovascular Exam Cardiovascular Exam: REGULAR RHYTHM, RRR, +S1, +S2 - GI/Abdominal Exam GI & Abdominal Exam: Normal Bowel Sounds, Soft, Tenderness Additional comments: r side - Extremities Exam Extremities exam: Positive for: full ROM, normal capillary refill, normal inspection, pedal pulses present - Back Exam Back exam: NORMAL INSPECTION - Neurological Exam Neurological exam: Alert, CN II-XII Intact, Normal Gait, Oriented x3, Reflexes Normal - Psychiatric Exam Psychiatric exam: Normal Affect, Normal Mood - Skin Skin Exam: Dry, Intact, Normal Color, Warm Results - Vital Signs Recent Vital Signs: Last Vital Signs Temp 98.7 F 05/09/16 04:10 Pulse 66 05/09/16 04:10 Resp 20 05/09/16 04:10 BP 122/77 05/09/16 04:10 Pulse Ox 98 05/08/16 23:26 - Labs Result Diagrams: 05/09/16 06:15 05/09/16 06:15 Labs: Laboratory Results - last 24 hr 05/09/16 06:15 WBC 10.5 RBC 3.84 L Hgb 12.4 Hct 37.5 MCV 97.7 H MCH 32.4 H MCHC 33.1 RDW 15.8 H Plt Count 490 H MPV 8.3 Neut % (Auto) 69.2 Lymph % (Auto) 19.7 L Callaway % (Auto) 9.0 Eos % (Auto) 1.2 Baso % (Auto) 0.9 Neut # 7.3 H Lymph # 2.1 Callaway # 1.0 H Eos # 0.1 Baso # 0.1 Assessment & Plan (1) DVT prophylaxis Assessment and Plan: scd and ae hose ambulation Status: Acute (2) Pancreatitis, alcoholic, acute Assessment and Plan: pain control-toradol, percocet, morphine gi lr npo, adv diet as enrique to cld then bland Status: Acute Priority: High Decision To Admit - Pt Status Changed To: Hospital Disposition Of: Observation - . Bed Request Type: Med/Surg Admitting Physician: Malissa Johnson
[2016-05-09 07:33] LABS: ALKALINE PHOSPHATASE 59 U/L (38-126); ALT/SGPT 34 U/L (21-72); AST/SGOT 24 U/L (17-59); BILIRUBIN,TOTAL 0.2 mg/dl (0.2-1.3); BLOOD UREA NITROGEN 5 mg/dl (9-20); CALCIUM 8.8 mg/dL (8.4-10.2); CARBON DIOXIDE 25 mmol/L (22-30); CHLORIDE 103 mmol/L (98-107); GFR AFRICAN-AMERICAN > 60; GLUCOSE,RANDOM 94 mg/dL (75-110); LIPASE 662 U/L (23-300); POTASSIUM 3.8 MMOL/L (3.6-5.0); SODIUM 144 mmol/l (132-148); TOTAL PROTEIN 6.2 G/DL (6.3-8.2)
--- NOTE | 2016-05-09 08:06 | CARD ---
APPROVED REPORT EKG Measurement Heart [id number] <Conclusion> Normal sinus rhythm Normal ECG
[2016-05-09 08:23] VITALS: BP 138/84; PULSE 67; RESP 18; TEMP 98.4; O2SAT 97
--- NOTE | 2016-05-09 08:41 | RAD ---
HISTORY: pain COMPARISON: 05/05/2016 TECHNIQUE: Chest PA and lateral FINDINGS: LUNGS: No focal airspace opacity. PLEURA: No significant pleural effusion identified. No pneumothorax apparent. CARDIOVASCULAR: Normal. OSSEOUS STRUCTURES: No significant abnormalities. VISUALIZED UPPER ABDOMEN: Normal. OTHER FINDINGS: None. IMPRESSION: No focal airspace opacity.
[2016-05-09] MEDS ORDERED: AMLODIPINE BESYLATE PO SCH (09:00)
[2016-05-09] MEDS ORDERED: Amoxicillin-Clav 875-125 mg Tab PO SCH (09:00)
[2016-05-09] MEDS ORDERED: OMEPRAZOLE MAGNESIUM PO SCH (09:00)
[2016-05-09] MEDS ORDERED: BENAZEPRIL PO SCH (09:00)
[2016-05-09] MEDS ORDERED: Pantoprazole 40 mg EC Tab PO SCH (09:00)
--- NOTE | 2016-05-09 13:41 | CP.PCM.DIS ---
Provider - Provider Date of Admission: 05/08/16 20:07 Attending physician: Malissa Johnson MD Time Spent in preparation of Discharge (in minutes): 15 Hospital Course - Lab Results Lab Results: Most Recent Lab Values WBC 10.5 K/uL (4.8-10.8) 05/09/16 06:15 RBC 3.84 Mil/uL (4.40-5.90) L 05/09/16 06:15 Hgb 12.4 g/dL (12.0-18.0) 05/09/16 06:15 Hct 37.5 % (35.0-51.0) 05/09/16 06:15 MCV 97.7 fl (80.0-94.0) H 05/09/16 06:15 MCH 32.4 pg (27.0-31.0) H 05/09/16 06:15 MCHC 33.1 g/dL (33.0-37.0) 05/09/16 06:15 RDW 15.8 % (11.5-14.5) H 05/09/16 06:15 Plt Count 490 K/uL (130-400) H 05/09/16 06:15 MPV 8.3 fl (7.2-11.7) 05/09/16 06:15 Neut % (Auto) 69.2 % (50.0-75.0) 05/09/16 06:15 Lymph % (Auto) 19.7 % (20.0-40.0) L 05/09/16 06:15 Otero % (Auto) 9.0 % (0.0-10.0) 05/09/16 06:15 Eos % (Auto) 1.2 % (0.0-4.0) 05/09/16 06:15 Baso % (Auto) 0.9 % (0.0-2.0) 05/09/16 06:15 Neut # 7.3 K/uL (1.8-7.0) H 05/09/16 06:15 Lymph # 2.1 K/uL (1.0-4.3) 05/09/16 06:15 Otero # 1.0 K/uL (0.0-0.8) H 05/09/16 06:15 Eos # 0.1 K/uL (0.0-0.7) 05/09/16 06:15 Baso # 0.1 K/uL (0.0-0.2) 05/09/16 06:15 Neutrophils % (Manual) 67 % (42-75) 05/08/16 17:54 Lymphocytes % (Manual) 23 % (20-50) 05/08/16 17:54 Reactive Lymphs % 1 % (0-0) H 05/08/16 17:54 Monocytes % (Manual) 4 % (0-10) 05/08/16 17:54 Eosinophils % (Manual) 5 % (0-7) 05/08/16 17:54 Platelet Estimate Increased (NORMAL) H 05/08/16 17:54 Large Platelets Present 05/08/16 17:54 Giant Platelets Present 05/08/16 17:54 Poikilocytosis (manual Slight 05/08/16 17:54 Anisocytosis (manual) Slight 05/08/16 17:54 Tear Drop Cells Slight 05/08/16 17:54 PT 11.7 SECONDS (9.6-11.2) H 05/08/16 17:54 INR 1.13 (0.92-1.08) H 05/08/16 17:54 APTT 29.4 SECONDS (23.3-32.5) 05/08/16 17:54 Sodium 144 mmol/l (132-148) 05/09/16 06:15 Potassium 3.8 MMOL/L (3.6-5.0) 05/09/16 06:15 Chloride 103 mmol/L (98-107) 05/09/16 06:15 Carbon Dioxide 25 mmol/L (22-30) 05/09/16 06:15 Anion Gap 19 (10-20) 05/09/16 06:15 BUN 5 mg/dl (9-20) L 05/09/16 06:15 Creatinine 0.6 mg/dL (0.8-1.5) L 05/09/16 06:15 Est GFR ( Amer) > 60 05/09/16 06:15 Est GFR (Non-Af Amer) > 60 05/09/16 06:15 Random Glucose 94 mg/dL (75-110) 05/09/16 06:15 Lactic Acid 1.1 MMOL/L (0.7-2.1) 05/08/16 17:54 Calcium 8.8 mg/dL (8.4-10.2) 05/09/16 06:15 Magnesium 2.3 MG/DL (1.6-2.3) 05/08/16 17:54 Total Bilirubin 0.2 mg/dl (0.2-1.3) 05/09/16 06:15 AST 24 U/L (17-59) 05/09/16 06:15 ALT 34 U/L (21-72) 05/09/16 06:15 Alkaline Phosphatase 59 U/L (38-126) 05/09/16 06:15 Troponin I < 0.0120 ng/mL (0.00-0.120) 05/08/16 17:54 Total Protein 6.2 G/DL (6.3-8.2) L 05/09/16 06:15 Albumin 3.1 g/dL (3.5-5.0) L 05/09/16 06:15 Globulin 3.1 gm/dL (2.2-3.9) 05/09/16 06:15 Albumin/Globulin Ratio 1.0 (1.0-2.1) 05/09/16 06:15 Amylase 67 U/L (30-110) 05/08/16 17:54 Lipase 662 U/L (23-300) H 05/09/16 06:15 Alcohol, Quantitative < 10 mg/dl (0-10) 05/08/16 19:20 Discharge Exam - Head Exam Head Exam: ATRAUMATIC Discharge Plan - Follow Up Plan Condition: STABLE Disposition: HOME/ ROUTINE Instructions: Pancreatitis (DC), Acute Abdominal Pain (DC) Additional Instructions: rn called and stated that pt wants to be dc. pt cleared by gi for dc. f/u rmg 1- 2 days, rted prn, meds per med rec final dx-pancreatitis
== END 2016-05-09 11:12 | disposition home or self-care (01) ==
LOC: H.ER 17:23 → H.ERHOLD 20:07 → H.MEDSURG1 21:43
PROVIDERS: ADMIT Family Medicine; ATTEND Family Medicine
DX: K85.20 Alcohol induced acute pancreatitis without necrosis or infection (principal); E78.00 Pure hypercholesterolemia, unspecified; E78.5 Hyperlipidemia, unspecified; I10 Essential (primary) hypertension; F41.9 Anxiety disorder, unspecified; F32.9 Major depressive disorder, single episode, unspecified; K29.70 Gastritis, unspecified, without bleeding; K86.0 Alcohol-induced chronic pancreatitis; F17.210 Nicotine dependence, cigarettes, uncomplicated

== ENCOUNTER 2016-11-22 19:26 | Inpatient (IN) | payer OTHER ==
[2016-11-22 19:26] VITALS: BMI 25.1
[2016-11-22] MEDS ORDERED: Sodium Chloride 0.9% 1,000 ML IV STA (20:17)
[2016-11-22 20:40] LABS: BASO # 0.1 K/uL (0.0-0.2); BASO % 1.1 % (0.0-2.0); EOS % 0.4 % (0.0-4.0); HEMATOCRIT 47.6 % (35.0-51.0); LYMPH # 1.6 K/uL (1.0-4.3); LYMPH % 16.5 % (20.0-40.0); MEAN CELL VOLUME 97.1 fl (80.0-94.0); MEAN CORPUSCULAR HEMOGLOBIN 32.4 pg (27.0-31.0); MEAN CORPUSCULAR HGB CONC 33.4 g/dL (33.0-37.0); MEAN PLATELET VOLUME 8.2 fl (7.2-11.7); MONO # 0.6 K/uL (0.0-0.8); MONO % 6.7 % (0.0-10.0); NEUT # 7.3 K/uL (1.8-7.0); NEUT % 75.3 % (50.0-75.0); RED CELL DISTRIBUTION WIDTH 13.9 % (11.5-14.5); WHITE BLOOD COUNT 9.7 K/uL (4.8-10.8)
[2016-11-22 20:45] LABS: PARTIAL THROMBOPLASTIN TIME 28.9 Seconds (25.6-37.1)
[2016-11-22 20:46] LABS: ALB/GLOB RATIO 1.5 (1.0-2.1); ALCOHOL SERUM < 10 mg/dl (0-10); ALKALINE PHOSPHATASE 81 U/L (38-126); ALT/SGPT 59 U/L (21-72); AST/SGOT 61 U/L (17-59); BILIRUBIN,TOTAL 0.7 mg/dl (0.2-1.3); BLOOD UREA NITROGEN 8 mg/dl (9-20); CALCIUM 9.8 mg/dL (8.4-10.2); CARBON DIOXIDE 22 mmol/L (22-30); CHLORIDE 102 mmol/L (98-107); GFR AFRICAN-AMERICAN > 60; GLUCOSE,RANDOM 105 mg/dL (75-110); LIPASE 1008 U/L (23-300); POTASSIUM 3.8 MMOL/L (3.6-5.0); SODIUM 139 mmol/l (132-148); TOTAL PROTEIN 7.5 G/DL (6.3-8.2)
[2016-11-22] MEDS ORDERED: Lactated Ringer's 1,000 ML IV SCH ×2 (21:00→21:15)
[2016-11-22 22:01] LABS: RBC URINE 4 /hpf (0-3); URINE BACTERIA RARE (<OCC); URINE BILIRUBIN NEGATIVE (NEGATIVE); URINE BLOOD NEGATIVE (NEGATIVE); URINE COLOR YELLOW (YELLOW); URINE GLUCOSE (UA) NEG (Normal); URINE KETONE NEGATIVE (NEGATIVE); URINE LEUKOCYTE ESTERASE TRACE Leu/uL (Negative); URINE PROTEIN NEGATIVE (NEGATIVE); URINE UROBILINOGEN 0.2-1.0 mg/dL (0.2-1.0); WBC URINE 11 /hpf (0-5)
--- NOTE | 2016-11-22 22:04 | ED PDOC ---
HPI: Abdomen Time Seen by Provider: 11/22/16 19:51 Chief Complaint (Nursing): Chest Pain Chief Complaint (Provider): Abdominal pain History Per: Patient History/Exam Limitations: no limitations Onset/Duration Of Symptoms: Days (x 1) Current Symptoms Are (Timing): Still Present Associated Symptoms: Nausea Additional Complaint(s): [place] is a 41 y/o male with a past medical history of pancreatitis, hypertriglyceridemia and alcohol abuse, presenting with worsening abdominal pain for 1 day, associated with nausea. Pain is localized to the right upper quadrant and radiates to his right mid back, consistent with previous episodes of pancreatitis. Pain is sharp and constant. No chest pain, cough, fever, or shortness of breath. Patient is known to GI specialist Dr. Jimenez. PMD: Natanael Johnson Past Medical History Reviewed: Historical Data, Nursing Documentation, Vital Signs Vital Signs: Last Vital Signs Temp 97.3 F L 11/23/16 01:56 Pulse 80 11/23/16 01:56 Resp 20 11/23/16 01:56 BP 137/89 11/23/16 01:56 Pulse Ox 99 11/23/16 01:56 - Medical History PMH: Anxiety, Depression, Diverticulitis, Gastritis, HTN, Hypercholesterolemia, Hyperlipidemia, Pancreatitis Denies: Diabetes, Hepatitis, HIV, Chronic Kidney Disease, Seizures, Sexually Transmitted Disease Other PMH: alcohol abuse - Surgical History Surgical History: No Surg Hx - Family History Family History: States: Unknown Family Hx, CAD (in father) - Social History Current smoker - smoking cessation education provided: No Alcohol: Occasional Drugs: Denies - Home Medications Home Medications: Ambulatory Orders Medication Instructions Recorded Amlodipine Besylate/Benazepril 1 cap PO DAILY 08/11/15 [Lotrel 5-20 mg Capsule] Omeprazole Magnesium [Prilosec Otc] 1 tab PO DAILY 08/11/15 clonazePAM [Klonopin] 1 mg PO BID PRN 08/11/15 QUEtiapine [SEROquel] 300 mg PO HS 04/29/16 ARIPiprazole [Abilify] 10 mg PO DAILY 11/22/16 Aspirin [Aspirin Chewable] 81 mg PO DAILY 11/22/16 Escitalopram [Lexapro] 20 mg PO DAILY 11/22/16 Fenofibrate [Tricor] 145 mg PO DAILY 11/22/16 Lipase/Protease/Amylase [Zenpep Dr 1 cap PO TID 11/22/16 10,000 Units Capsule] Melatonin [Melatin] 3 mg PO DAILY 11/22/16 Ondansetron HCl [Zofran] 4 mg PO Q8 PRN 11/22/16 Rosuvastatin Calcium [Crestor] 20 mg PO DAILY 11/22/16 - Allergies Allergies/Adverse Reactions: Allergies Allergy/AdvReac Type Severity Reaction Status Date / Time No Known Allergies Allergy Verified 11/22/16 19:36 Review of Systems ROS Statement: Except As Marked, All Systems Reviewed And Found Negative Constitutional: Negative for: Fever Cardiovascular: Negative for: Chest Pain Respiratory: Negative for: Shortness of Breath Gastrointestinal: Positive for: Nausea, Abdominal Pain Physical Exam - Reviewed Nursing Documentation Reviewed: Yes Vital Signs Reviewed: Yes - Physical Exam Appears: Positive for: No Acute Distress, Uncomfortable Head Exam: Positive for: ATRAUMATIC, NORMOCEPHALIC Skin: Positive for: Normal Color, Warm, Dry Eye Exam: Positive for: EOMI, Normal appearance, PERRL Neck: Positive for: Normal, Painless ROM, Supple Cardiovascular/Chest: Positive for: Regular Rate, Rhythm. Negative for: Murmur Respiratory: Positive for: Normal Breath Sounds. Negative for: Accessory Muscle Use, Respiratory Distress Gastrointestinal/Abdominal: Positive for: Soft, Tenderness (Right epigastric and upper quadrant tenderness) Back: Positive for: Normal Inspection. Negative for: Vertebral Tenderness Extremity: Positive for: Normal ROM. Negative for: Pedal Edema, Deformity Neurologic/Psych: Positive for: Alert, Oriented. Negative for: Motor/Sensory Deficits - Laboratory Results Result Diagrams: 11/22/16 20:30 11/22/16 20:30 - ECG O2 Sat by Pulse Oximetry: 98 (RA) Pulse Ox Interpretation: Normal Medical Decision Making Medical Decision Making: Time: 19:52 Initial Impression: 41 y/o male with acute abdominal pain in setting of known pancreatitis Initial Plan: --Labs --CT Abd/Pelvis with IV contrast --Started on IV fluids --Zofran, 4 mg IV --Dilaudid 1 mg IV --Pending reevaluation --Labs reviewed, and are significant for elevated lipase and triglycerides Time: 20:59 --Patient is known to GI specialist, Dr. Jimenez --Discussed case with Dr. Weldon (partner covering Dr. Jimenez), who agreed with plan to admit for further hydration and evaluation. --Spoke to Natanael Johnson APN, who is aware of patient being admitted. Scribe Attestation: Documented by Lidia Barba, acting as a scribe for David Holguin MD Provider Scribe Attestation: All medical record entries made by the Scribe were at my direction and personally dictated by me. I have reviewed the chart and agree that the record accurately reflects my personal performance of the history, physical exam, medical decision making, and the department course for this patient. I have also personally directed, reviewed, and agree with the discharge instructions and disposition. Disposition - Clinical Impression Clinical Impression: Pancreatitis - Patient ED Disposition Is Patient to be Admitted: Yes Discussed With DrConcepción: Jonathan Weldon (Jeff Johnson NP) Counseled Patient/Family Regarding: Studies Performed, Diagnosis - Disposition Disposition Time: 21:00 Condition: FAIR
[2016-11-22] MEDS ORDERED: Iohexol 300 100 ML IJ ONE (22:16)
[2016-11-22] MEDS ORDERED: Sodium Chloride 0.9% 50 ML IV ONE (22:17)
[2016-11-23] MEDS: Sodium Chloride 0.9% 1,000 ML IV SCH ×2 (00:32→04:16)
[2016-11-23] MEDS: HYDROmorphone 0.5 mg/0.5 ml ISec IVP PRN ×3 (01:26→11:48)
[2016-11-23 06:29] LABS: BASO % 0.6 % (0.0-2.0); EOS # 0.1 K/uL (0.0-0.7); EOS % 1.4 % (0.0-4.0); HEMATOCRIT 42.9 % (35.0-51.0); LYMPH # 1.3 K/uL (1.0-4.3); LYMPH % 17.3 % (20.0-40.0); MEAN CELL VOLUME 97.5 fl (80.0-94.0); MEAN CORPUSCULAR HEMOGLOBIN 33.3 pg (27.0-31.0); MEAN CORPUSCULAR HGB CONC 34.1 g/dL (33.0-37.0); MEAN PLATELET VOLUME 8.4 fl (7.2-11.7); MONO # 0.6 K/uL (0.0-0.8); MONO % 8.3 % (0.0-10.0); NEUT # 5.5 K/uL (1.8-7.0); NEUT % 72.4 % (50.0-75.0); NRBC % 0.1 % (0.0-0.0); RED CELL DISTRIBUTION WIDTH 13.8 % (11.5-14.5); WHITE BLOOD COUNT 7.6 K/uL (4.8-10.8)
[2016-11-23 06:36] LABS: ALB/GLOB RATIO 1.4 (1.0-2.1); ALKALINE PHOSPHATASE 68 U/L (38-126); ALT/SGPT 43 U/L (21-72); AST/SGOT 39 U/L (17-59); BILIRUBIN,TOTAL 0.7 mg/dl (0.2-1.3); BLOOD UREA NITROGEN 6 mg/dl (9-20); CALCIUM 8.9 mg/dL (8.4-10.2); CARBON DIOXIDE 23 mmol/L (22-30); CHLORIDE 105 mmol/L (98-107); CHOLESTEROL 136 mg/dL (0-199); GFR AFRICAN-AMERICAN > 60; GLUCOSE,RANDOM 108 mg/dL (75-110); POTASSIUM 3.6 MMOL/L (3.6-5.0); SODIUM 141 mmol/l (132-148); TOTAL PROTEIN 6.3 G/DL (6.3-8.2)
--- NOTE | 2016-11-23 08:10 | CP.PCM.HP ---
History of Present Illness - History of Present Illness History of Present Illness: pt admitted for pancreatitis. c/o nausea and epigastric pain. no f/c, d. pt has been w/ pain and nausea x 2 days. been drinking 2-3 drinks/day for months bw from er noted. triglycerides trending down. lipase pending. Present on Admission - Present on Admission Any Indicators Present on Admission: No Review of Systems - Gastrointestinal Gastrointestinal: As Per HPI, Abdominal Pain, Nausea, Vomiting Past Patient History - Tetanus Immunizations Tetanus Immunization: Unknown - Past Medical History & Family History Past Medical History?: Yes - Past Social History Alcohol: Occasional Drugs: Denies - CARDIAC Hx Hypercholesterolemia: Yes Hx Hypertension: Yes - PULMONARY Hx Respiratory Disorders: No - NEUROLOGICAL Hx Seizures: No - HEENT Hx HEENT Problems: No - RENAL Hx Chronic Kidney Disease: No - ENDOCRINE/METABOLIC Hx Endocrine Disorders: No - HEMATOLOGICAL/ONCOLOGICAL Hx Human Immunodeficiency Virus (HIV): No - INTEGUMENTARY Hx Dermatological Problems: No - MUSCULOSKELETAL/RHEUMATOLOGICAL Hx Musculoskeletal Disorders: No Hx Falls: No - GASTROINTESTINAL Hx Diverticulitis: Yes Hx Gastritis: Yes Hx Pancreatitis: Yes - GENITOURINARY/GYNECOLOGICAL Hx Sexually Transmitted Disorders: No - PSYCHIATRIC Hx Anxiety: Yes Hx Depression: Yes - SURGICAL HISTORY Hx Surgeries: Yes Other/Comment: Hx colon resection 2008. Hx B/L knee surgery for meniscus 2004 - ANESTHESIA Hx Anesthesia: Yes Hx Anesthesia Reactions: No Meds Allergies/Adverse Reactions: Allergies Allergy/AdvReac Type Severity Reaction Status Date / Time No Known Allergies Allergy Verified 11/22/16 19:36 Physical Exam - Constitutional Appears: Well, Non-toxic, No Acute Distress - Head Exam Head Exam: ATRAUMATIC, NORMAL INSPECTION, NORMOCEPHALIC - Eye Exam Eye Exam: EOMI, Normal appearance, PERRL Pupil Exam: NORMAL ACCOMODATION, PERRL - ENT Exam ENT Exam: Mucous Membranes Moist, Normal Exam - Neck Exam Neck exam: Positive for: Normal Inspection - Respiratory Exam Respiratory Exam: Clear to Auscultation Bilateral, NORMAL BREATHING PATTERN - Cardiovascular Exam Cardiovascular Exam: REGULAR RHYTHM, RRR, +S1, +S2 - GI/Abdominal Exam GI & Abdominal Exam: Normal Bowel Sounds, Soft, Tenderness Additional comments: ruq - Extremities Exam Extremities exam: Positive for: full ROM, normal capillary refill, normal inspection, pedal pulses present - Back Exam Back exam: NORMAL INSPECTION - Neurological Exam Neurological exam: Alert, CN II-XII Intact, Normal Gait, Oriented x3, Reflexes Normal - Psychiatric Exam Psychiatric exam: Normal Affect, Normal Mood - Skin Skin Exam: Dry, Intact, Normal Color, Warm Results - Vital Signs Recent Vital Signs: Last Vital Signs Temp 98.0 F 11/23/16 07:22 Pulse 81 11/23/16 07:22 Resp 18 11/23/16 07:22 BP 148/91 H 11/23/16 07:22 Pulse Ox 96 11/23/16 07:22 - Labs Result Diagrams: 11/23/16 06:05 11/23/16 06:05 Labs: Laboratory Results - last 24 hr 11/22/16 11/22/16 11/22/16 20:25 20:30 20:30 WBC 9.7 RBC 4.90 Hgb 15.9 D Hct 47.6 MCV 97.1 H MCH 32.4 H MCHC 33.4 RDW 13.9 Plt Count 164 D MPV 8.2 Neut % (Auto) 75.3 H Lymph % (Auto) 16.5 L Floyd % (Auto) 6.7 Eos % (Auto) 0.4 Baso % (Auto) 1.1 Neut # 7.3 H Lymph # 1.6 Floyd # 0.6 Eos # 0.0 Baso # 0.1 PT INR APTT Sodium 139 Potassium 3.8 Chloride 102 Carbon Dioxide 22 Anion Gap 19 BUN 8 L Creatinine 0.8 Est GFR ( Amer) > 60 Est GFR (Non-Af Amer) > 60 POC Glucose (mg/dL) 100 Random Glucose 105 Calcium 9.8 Total Bilirubin 0.7 AST 61 H ALT 59 Alkaline Phosphatase 81 Lactate Dehydrogenase 384 Total Protein 7.5 Albumin 4.6 Globulin 3.0 Albumin/Globulin Ratio 1.5 Triglycerides 596 H Cholesterol LDL Cholesterol Direct HDL Cholesterol Lipase 1008 H Urine Color Urine Clarity Urine pH Ur Specific [place] Urine Protein Urine Glucose (UA) Urine Ketones Urine Blood Urine Nitrate Urine Bilirubin Urine Urobilinogen Ur Leukocyte Esterase Urine RBC (Auto) Urine Microscopic WBC Urine Bacteria Urine Opiates Screen Urine Methadone Screen Ur Barbiturates Screen Ur Phencyclidine Scrn Ur Amphetamines Screen U Benzodiazepines Scrn U Oth Cocaine Metabols U Cannabinoids Screen Alcohol, Quantitative < 10 11/22/16 11/22/16 11/22/16 20:30 21:40 21:40 WBC RBC Hgb Hct MCV MCH MCHC RDW Plt Count MPV Neut % (Auto) Lymph % (Auto) Floyd % (Auto) Eos % (Auto) Baso % (Auto) Neut # Lymph # Floyd # Eos # Baso # PT 11.8 INR 1.1 APTT 28.9 Sodium Potassium Chloride Carbon Dioxide Anion Gap BUN Creatinine Est GFR ( Amer) Est GFR (Non-Af Amer) POC Glucose (mg/dL) Random Glucose Calcium Total Bilirubin AST ALT Alkaline Phosphatase Lactate Dehydrogenase Total Protein Albumin Globulin Albumin/Globulin Ratio Triglycerides Cholesterol LDL Cholesterol Direct HDL Cholesterol Lipase Urine Color Yellow Urine Clarity Clear Urine pH 6.0 Ur Specific [place] 1.011 Urine Protein Negative Urine Glucose (UA) Neg Urine Ketones Negative Urine Blood Negative Urine Nitrate Negative Urine Bilirubin Negative Urine Urobilinogen 0.2-1.0 Ur Leukocyte Esterase Trace Urine RBC (Auto) 4 H Urine Microscopic WBC 11 H Urine Bacteria Rare Urine Opiates Screen Negative Urine Methadone Screen Negative Ur Barbiturates Screen Negative Ur Phencyclidine Scrn Negative Ur Amphetamines Screen Negative U Benzodiazepines Scrn Negative U Oth Cocaine Metabols Negative U Cannabinoids Screen Negative Alcohol, Quantitative 11/23/16 11/23/16 11/23/16 00:55 06:05 06:05 WBC 7.6 RBC 4.40 Hgb 14.6 Hct 42.9 MCV 97.5 H MCH 33.3 H MCHC 34.1 RDW 13.8 Plt Count 141 MPV 8.4 Neut % (Auto) 72.4 Lymph % (Auto) 17.3 L Floyd % (Auto) 8.3 Eos % (Auto) 1.4 Baso % (Auto) 0.6 Neut # 5.5 Lymph # 1.3 Floyd # 0.6 Eos # 0.1 Baso # 0.0 PT INR APTT Sodium 141 Potassium 3.6 Chloride 105 Carbon Dioxide 23 Anion Gap 16 BUN 6 L Creatinine 0.8 Est GFR ( Amer) > 60 Est GFR (Non-Af Amer) > 60 POC Glucose (mg/dL) 94 Random Glucose 108 Calcium 8.9 Total Bilirubin 0.7 AST 39 ALT 43 Alkaline Phosphatase 68 Lactate Dehydrogenase Total Protein 6.3 Albumin 3.7 Globulin 2.6 Albumin/Globulin Ratio 1.4 Triglycerides 485 H Cholesterol 136 LDL Cholesterol Direct 54 HDL Cholesterol 33 Lipase Urine Color Urine Clarity Urine pH Ur Specific [place] Urine Protein Urine Glucose (UA) Urine Ketones Urine Blood Urine Nitrate Urine Bilirubin Urine Urobilinogen Ur Leukocyte Esterase Urine RBC (Auto) Urine Microscopic WBC Urine Bacteria Urine Opiates Screen Urine Methadone Screen Ur Barbiturates Screen Ur Phencyclidine Scrn Ur Amphetamines Screen U Benzodiazepines Scrn U Oth Cocaine Metabols U Cannabinoids Screen Alcohol, Quantitative Assessment & Plan (1) Pancreatitis Assessment and Plan: trend lipase/tri gi ivf npo paina dn nausea control Status: Acute (2) Alcohol abuse Assessment and Plan: alcohol withdrawal monitor cessation education Status: Acute (3) DVT prophylaxis Assessment and Plan: scd nad aehose ambulation Status: Acute Decision To Admit - Pt Status Changed To: Hospital Disposition Of: Inpatient - Admit Certification Admit to Inpatient:: After my assessment, the patient will require hospitalization for at least two midnights. This is because of the severity of symptoms shown, intensity of services needed, and/or the medical risk in this patient being treated as an outpatient. - . Bed Request Type: Med/Surg Admitting Physician: Malissa Johnson
[2016-11-23] MEDS ORDERED: PROTEASE PO SCH (09:00)
[2016-11-23] MEDS ORDERED: LIPASE PO SCH (09:00)
[2016-11-23] MEDS ORDERED: Pneumococcal 23-Valent Vaccine IM ONE (09:00)
[2016-11-23] MEDS ORDERED: OMEPRAZOLE MAGNESIUM PO SCH (09:00)
[2016-11-23] MEDS ORDERED: BENAZEPRIL PO SCH (09:00)
[2016-11-23] MEDS ORDERED: AMYLASE PO SCH (09:00)
[2016-11-23] MEDS ORDERED: AMLODIPINE BESYLATE PO SCH (09:00)
[2016-11-23] MEDS ORDERED: Influenza Vaccine 18yr & older 0.5 ML/45 MCG SYR IM ONE (09:15)
[2016-11-23] MEDS: Amylase/Lipase/Protease 5,000 U ECC PO SCH ×3 (10:12→16:20)
[2016-11-23] MEDS: Pantoprazole 40 mg EC Tab PO SCH (10:13)
--- NOTE | 2016-11-23 10:33 | CT ---
PROCEDURE: CT Abdomen and Pelvis with contrast HISTORY: pancreatitis COMPARISON: 05/04/2016. TECHNIQUE: Contrast dose: 95 mL Omnipaque 300 Radiation dose: Total exam DLP = 903.26 mGy-cm. This CT exam was performed using one or more of the following dose reduction techniques: Automated exposure control, adjustment of the mA and/or kV according to patient size, and/or use of iterative reconstruction technique. FINDINGS: LOWER THORAX: The lung bases are clear. There is interval resolution of right pleural effusion LIVER: There is moderate all hepatomegaly and diffuse fatty infiltration in the liver. . No gross lesion or ductal dilatation. GALLBLADDER AND BILE DUCTS: There are no calcified gallstones. PANCREAS: There is mild low attenuation in the head of the pancreas. The body and tail of the pancreas are normal in size with homogeneous enhancement. There are inflammatory changes in the fat surrounding the head of the pancreas with peripancreatic edema and small amount of peripancreatic fluid extending into the right superior retroperitoneum and in the right upper quadrant. No evidence of ductal dilatation or pseudocyst. SPLEEN: The spleen is normal in size and there is homogeneous enhancement without focal lesion. ADRENALS: Both adrenal glands are normal in size without discrete nodule. KIDNEYS AND URETERS: Both kidneys are normal in size and there is homogeneous enhancement. No hydronephrosis. No solid mass. VASCULATURE: No aortic aneurysm. BOWEL: The small bowel loops are normal in caliber. There is left colonic diverticulosis without CT evidence for acute diverticulitis. There are postsurgical changes of partial sigmoid colon resection. No bowel dilatation or obstruction. APPENDIX: No inflammatory changes in the right lower quadrant. PERITONEUM: No free fluid. No free air. LYMPH NODES: No enlarged lymph nodes. BLADDER: Grossly normal in appearance. REPRODUCTIVE: The prostate gland is normal in size. BONES: No acute fracture. Within normal limits for the patient's age with OTHER FINDINGS: None. IMPRESSION: 1. Acute pancreatitis involving the head of the pancreas with peripancreatic inflammatory changes surrounding the head of the pancreas and extending into the superior retroperitoneum. No pseudocyst. Follow-up after medical management is recommended to ensure complete resolution and exclude underlying mass. 2. Moderate hepatomegaly and diffuse fatty infiltration in the liver. 3. Left colonic diverticulosis without CT evidence for acute diverticulitis. A preliminary report was provided by [employer].
[2016-11-23] MEDS ORDERED: Lactated Ringer's 1,000 ML IV SCH ×4 (12:00→19:00)
[2016-11-23] MEDS ORDERED: Lactated Ringer's 500 ML IV SCH ×2 (12:15→14:15)
[2016-11-23] MEDS ORDERED: Dextrose 5%/Lactated Ringer's 1,000 ML IV SCH ×2 (13:00→16:00)
[2016-11-23 13:06] LABS: LIPASE 670 U/L (23-300)
[2016-11-23] MEDS: Lactated Ringer's 1,000 ML IV SCH ×2 (14:22→15:10)
[2016-11-23] MEDS: Lactated Ringer's 500 ML IV SCH ×3 (15:17→21:18)
[2016-11-24] MEDS: Lactated Ringer's 500 ML IV SCH ×4 (01:00→08:33)
--- NOTE | 2016-11-24 01:22 | CON ---
DATE: 11/23/2016HISTORY OF PRESENT ILLNESS: This is a 41-year-old man, well known to my office and service with multiple admissions in the hospital for complaints of pancreatitis, basically had a binge of alcohol, now back in the hospital with pain and nausea and vomiting. The pain is actually improving, but the nausea is still there. He is currently lying in bed, comfortable, in mild amount of distress. PAST MEDICAL HISTORY: As above. PAST SURGICAL HISTORY: As above. MEDICATIONS: Have been reviewed. REVIEW OF SYSTEMS: All other systems have been reviewed and negative apart from the HPI. PHYSICAL EXAMINATION GENERAL: Pleasant middle-aged man, lying in bed comfortable, in no apparent distress. VITAL SIGNS: In the hospital, are grossly unremarkable, HEENT: Head is normocephalic and atraumatic. Eyes, pupils are equal, round and reactive to light bilaterally. No conjunctival pallor or icterus. NECK: Supple. Normal range of motion. No lymphadenopathy appreciated. HEART: S1 and S2. Regular rate and rhythm. No murmurs appreciated. LUNGS: Coarse breath sounds bilaterally. ABDOMEN: Soft. Some discomfort in the epigastric region. No rebound. No guarding. RECTAL: Deferred. EXTREMITIES: Pulses present bilaterally. SKIN: Warm, dry, and intact. NEUROLOGIC: A and O x3. LABORATORY DATA: Labs have been reviewed. Hemoglobin 15.9 to 14.6. INR of 1.1, lipase 1008, now 670, triglyceride 596 to now 485. CAT scan of the abdomen and pelvis shows acute pancreatitis of the head with some inflammation pseudocyst, fatty liver. ASSESSMENT AND PLAN: This is a 41-year-old man with alcohol abuse and now alcoholic pancreatitis. From GI standpoint, increase fluids aggressively, pain control as needed, Zofran p.r.n. Advance diet once able to tolerate clears. Recommend CAT scan in 6 to 8 weeks and cessation of the alcohol entirely. This was discussed with the patient in the office as well as now. Thank you for the consult. Jose Eduardo Jimenez MD/ PhD cc: Dr. Johnson
[2016-11-24 06:29] LABS: BASO # 0.1 K/uL (0.0-0.2); BASO % 0.6 % (0.0-2.0); EOS # 0.1 K/uL (0.0-0.7); HEMATOCRIT 42.9 % (35.0-51.0); LYMPH # 1.5 K/uL (1.0-4.3); LYMPH % 15.8 % (20.0-40.0); MEAN CELL VOLUME 96.6 fl (80.0-94.0); MEAN CORPUSCULAR HEMOGLOBIN 32.9 pg (27.0-31.0); MEAN CORPUSCULAR HGB CONC 34.1 g/dL (33.0-37.0); MEAN PLATELET VOLUME 8.5 fl (7.2-11.7); MONO # 0.8 K/uL (0.0-0.8); MONO % 8.2 % (0.0-10.0); NEUT # 7.2 K/uL (1.8-7.0); NEUT % 74.4 % (50.0-75.0); RED CELL DISTRIBUTION WIDTH 13.6 % (11.5-14.5); WHITE BLOOD COUNT 9.7 K/uL (4.8-10.8)
[2016-11-24 07:01] LABS: ALB/GLOB RATIO 1.4 (1.0-2.1); ALKALINE PHOSPHATASE 69 U/L (38-126); ALT/SGPT 40 U/L (21-72); AST/SGOT 30 U/L (17-59); BILIRUBIN,TOTAL 0.9 mg/dl (0.2-1.3); BLOOD UREA NITROGEN 4 mg/dl (9-20); CALCIUM 9.5 mg/dL (8.4-10.2); CARBON DIOXIDE 26 mmol/L (22-30); GFR AFRICAN-AMERICAN > 60; GLUCOSE,RANDOM 102 mg/dL (75-110); LIPASE 240 U/L (23-300); POTASSIUM 3.7 MMOL/L (3.6-5.0); SODIUM 141 mmol/l (132-148)
[2016-11-24 07:05] LABS: CHLORIDE 100 mmol/L (98-107)
--- NOTE | 2016-11-24 07:11 | CP.PCM.PN ---
Subjective - Date & Time of Evaluation Date of Evaluation: 11/24/16 Time of Evaluation: 07:10 - Subjective Subjective: still w/ pain. no f/c, n/v/d. pain appears more controlled at this time. bw noted w/normal lipase. consult appriciated Objective - Vital Signs/Intake and Output Vital Signs (last 24 hours): Temp Pulse Resp BP Pulse Ox 97.3 F L 84 20 138/78 97 11/24/16 04:00 11/24/16 04:00 11/24/16 04:00 11/24/16 04:00 11/24/16 04:00 - Medications Medications: Current Medications Amlodipine Besylate (Norvasc) 5 mg PO DAILY [facility] Last Admin: 11/23/16 10:12 Dose: 5 mg Amylase (Pancrease 25768 U-5000 [id number] U) 10,000 u PO TID [facility] Last Admin: 11/23/16 16:20 Dose: 10,000 u Aripiprazole (Abilify) 10 mg PO DAILY [facility] Last Admin: 11/23/16 10:10 Dose: 10 mg Aspirin (Aspirin Chewable) 81 mg PO DAILY [facility] Last Admin: 11/23/16 10:11 Dose: 81 mg Atorvastatin Calcium (Lipitor) 40 mg PO DAILY [facility] Last Admin: 11/23/16 10:12 Dose: 40 mg Clonazepam (Klonopin) 1 mg PO BID PRN PRN Reason: Anxiety Escitalopram Oxalate (Lexapro) 20 mg PO DAILY [facility] Last Admin: 11/23/16 10:12 Dose: 20 mg Famotidine (Pepcid) 20 mg IVP Q12 [facility] Last Admin: 11/23/16 21:16 Dose: 20 mg Fenofibrate (Tricor) 145 mg PO DAILY [facility] Last Admin: 11/23/16 10:13 Dose: 145 mg Home Med (Melatonin [Melatin]) 3 mg PO DAILY [facility] Last Admin: 11/23/16 10:20 Dose: Not Given Hydromorphone HCl (Dilaudid) 2 mg IVP Q4 PRN PRN Reason: Pain, severe (8-10) Last Admin: 11/24/16 04:15 Dose: 2 mg Lactated Ringer's (Lactated Ringer's 500ml) 500 mls @ 200 mls/hr IV .Q2H30M [facility] Last Admin: 11/24/16 03:30 Dose: 200 mls/hr Ketorolac Tromethamine (Toradol) 30 mg IVP Q6 PRN PRN Reason: Pain, Mild (1-3) Last Admin: 11/23/16 00:04 Dose: 30 mg Lisinopril (Zestril) 20 mg PO DAILY [facility] Last Admin: 11/23/16 10:13 Dose: 20 mg Morphine Sulfate (Morphine) 4 mg IVP Q4 PRN PRN Reason: Pain, moderate (4-7) Ondansetron HCl (Zofran Inj) 4 mg IVP Q6 PRN PRN Reason: Nausea/Vomiting Last Admin: 11/23/16 20:14 Dose: 4 mg Ondansetron HCl (Zofran Tab) 4 mg PO Q8 PRN PRN Reason: Nausea/Vomiting Pantoprazole Sodium (Protonix Ec Tab) 40 mg PO DAILY [facility] Last Admin: 11/23/16 10:13 Dose: 40 mg Promethazine HCl (Phenergan Inj) 25 mg IM Q6 PRN PRN Reason: Nausea/Vomiting Last Admin: 11/23/16 08:28 Dose: 25 mg Quetiapine Fumarate (Seroquel) 300 mg PO HS [facility] Stop: 11/26/16 00:31 Last Admin: 11/23/16 21:19 Dose: 300 mg - Labs Labs: 11/24/16 06:10 11/23/16 06:05 PT 11.8 Seconds (9.8-13.1) 11/22/16 20:30 INR 1.1 (0.9-1.2) 11/22/16 20:30 APTT 28.9 Seconds (25.6-37.1) 11/22/16 20:30 - Constitutional Appears: Well, Non-toxic, No Acute Distress - Head Exam Head Exam: ATRAUMATIC, NORMAL INSPECTION, NORMOCEPHALIC - Eye Exam Eye Exam: EOMI, Normal appearance, PERRL Pupil Exam: NORMAL ACCOMODATION, PERRL - ENT Exam ENT Exam: Mucous Membranes Moist, Normal Exam - Neck Exam Neck Exam: Full ROM, Normal Inspection. absent: Lymphadenopathy - Respiratory Exam Respiratory Exam: Clear to Ausculation Bilateral, NORMAL BREATHING PATTERN - Cardiovascular Exam Cardiovascular Exam: REGULAR RHYTHM, RRR, +S1, +S2. absent: Murmur - GI/Abdominal Exam GI & Abdominal Exam: Soft, Normal Bowel Sounds. absent: Tenderness - Extremities Exam Extremities Exam: Full ROM, Normal Capillary Refill, Normal Inspection. absent : Joint Swelling, Pedal Edema - Back Exam Back Exam: NORMAL INSPECTION - Neurological Exam Neurological Exam: Alert, Awake, CN II-XII Intact, Normal Gait, Oriented x3 - Psychiatric Exam Psychiatric exam: Normal Affect, Normal Mood - Skin Skin Exam: Dry, Intact, Normal Color, Warm Assessment and Plan (1) Pancreatitis Status: Acute (2) Alcohol abuse Status: Acute (3) DVT prophylaxis Status: Acute - Assessment and Plan (Free Text) Assessment: (1) Pancreatitis Assessment and Plan: trend lipase/tri gi ivf npo adv as per gi and as enrique paina dn nausea control Status: Acute (2) Alcohol abuse Assessment and Plan: alcohol withdrawal monitor cessation education Status: Acute (3) DVT prophylaxis Assessment and Plan: scd nad aehose ambulation Status: Acute
[2016-11-24] MEDS: Pantoprazole 40 mg EC Tab PO SCH (08:28)
[2016-11-24] MEDS: Amylase/Lipase/Protease 5,000 U ECC PO SCH ×3 (08:28→16:36)
--- NOTE | 2016-11-24 10:23 | CARD ---
APPROVED REPORT EKG Measurement Heart [id number] <Conclusion> Normal sinus rhythm Normal ECG
--- NOTE | 2016-11-24 10:54 | CP.PCM.PN ---
Subjective - Date & Time of Evaluation Date of Evaluation: 11/24/16 Time of Evaluation: 10:50 - Subjective Subjective: less pain Objective - Vital Signs/Intake and Output Vital Signs (last 24 hours): Temp Pulse Resp BP Pulse Ox 98.0 F 83 20 153/85 H 95 11/24/16 09:30 11/24/16 09:30 11/24/16 09:30 11/24/16 09:30 11/24/16 09:30 - Medications Medications: Current Medications Amlodipine Besylate (Norvasc) 5 mg PO DAILY [facility] Last Admin: 11/24/16 08:30 Dose: 5 mg Amylase (Pancrease 36482 U-5000 U-51175 U) 10,000 u PO TID [facility] Last Admin: 11/24/16 08:28 Dose: 10,000 u Aripiprazole (Abilify) 10 mg PO DAILY [facility] Last Admin: 11/24/16 08:29 Dose: 10 mg Aspirin (Aspirin Chewable) 81 mg PO DAILY [facility] Last Admin: 11/24/16 08:29 Dose: 81 mg Atorvastatin Calcium (Lipitor) 40 mg PO DAILY [facility] Last Admin: 11/24/16 08:29 Dose: 40 mg Clonazepam (Klonopin) 1 mg PO BID PRN PRN Reason: Anxiety Escitalopram Oxalate (Lexapro) 20 mg PO DAILY [facility] Last Admin: 11/24/16 09:35 Dose: 20 mg Famotidine (Pepcid) 20 mg IVP Q12 [facility] Last Admin: 11/24/16 08:37 Dose: 20 mg Fenofibrate (Tricor) 145 mg PO DAILY [facility] Last Admin: 11/24/16 08:30 Dose: 145 mg Home Med (Melatonin [Melatin]) 3 mg PO DAILY [facility] Last Admin: 11/24/16 08:37 Dose: Not Given Hydromorphone HCl (Dilaudid) 2 mg IVP Q4 PRN PRN Reason: Pain, severe (8-10) Last Admin: 11/24/16 08:22 Dose: 2 mg Lactated Ringer's (Lactated Ringer's 500ml) 500 mls @ 200 mls/hr IV .Q2H30M [facility] Last Admin: 11/24/16 08:33 Dose: 200 mls/hr Ketorolac Tromethamine (Toradol) 30 mg IVP Q6 PRN PRN Reason: Pain, Mild (1-3) Last Admin: 11/23/16 00:04 Dose: 30 mg Lisinopril (Zestril) 20 mg PO DAILY [facility] Last Admin: 11/24/16 08:30 Dose: 20 mg Morphine Sulfate (Morphine) 4 mg IVP Q4 PRN PRN Reason: Pain, moderate (4-7) Ondansetron HCl (Zofran Inj) 4 mg IVP Q6 PRN PRN Reason: Nausea/Vomiting Last Admin: 11/23/16 20:14 Dose: 4 mg Ondansetron HCl (Zofran Tab) 4 mg PO Q8 PRN PRN Reason: Nausea/Vomiting Pantoprazole Sodium (Protonix Ec Tab) 40 mg PO DAILY [facility] Last Admin: 11/24/16 08:28 Dose: 40 mg Promethazine HCl (Phenergan Inj) 25 mg IM Q6 PRN PRN Reason: Nausea/Vomiting Last Admin: 11/23/16 08:28 Dose: 25 mg Quetiapine Fumarate (Seroquel) 300 mg PO HS [facility] Stop: 11/26/16 00:31 Last Admin: 11/23/16 21:19 Dose: 300 mg - Labs Labs: 11/24/16 06:10 11/24/16 06:10 PT 11.8 Seconds (9.8-13.1) 11/22/16 20:30 INR 1.1 (0.9-1.2) 11/22/16 20:30 APTT 28.9 Seconds (25.6-37.1) 11/22/16 20:30 - Respiratory Exam Respiratory Exam: NORMAL BREATHING PATTERN - Cardiovascular Exam Cardiovascular Exam: REGULAR RHYTHM - GI/Abdominal Exam GI & Abdominal Exam: Soft, Normal Bowel Sounds Assessment and Plan - Assessment and Plan (Free Text) Assessment: 41 yo male with EtOH pancreatitis doing well advance diet dc planning once pain better controlled
[2016-11-24] MEDS: Lactated Ringer's 1,000 ML IV SCH ×3 (14:44→23:10)
[2016-11-25] MEDS: Lactated Ringer's 1,000 ML IV SCH ×3 (05:27→13:13)
[2016-11-25 06:26] LABS: BASO # 0.1 K/uL (0.0-0.2); BASO % 0.8 % (0.0-2.0); EOS # 0.2 K/uL (0.0-0.7); EOS % 2.3 % (0.0-4.0); HEMATOCRIT 40.4 % (35.0-51.0); LYMPH # 1.9 K/uL (1.0-4.3); LYMPH % 25.9 % (20.0-40.0); MEAN CELL VOLUME 97.8 fl (80.0-94.0); MEAN CORPUSCULAR HEMOGLOBIN 32.9 pg (27.0-31.0); MEAN CORPUSCULAR HGB CONC 33.7 g/dL (33.0-37.0); MEAN PLATELET VOLUME 8.6 fl (7.2-11.7); MONO # 0.7 K/uL (0.0-0.8); NEUT # 4.6 K/uL (1.8-7.0); RED CELL DISTRIBUTION WIDTH 13.9 % (11.5-14.5); WHITE BLOOD COUNT 7.4 K/uL (4.8-10.8)
[2016-11-25 06:45] LABS: ALB/GLOB RATIO 1.3 (1.0-2.1); ALKALINE PHOSPHATASE 55 U/L (38-126); ALT/SGPT 29 U/L (21-72); AST/SGOT 20 U/L (17-59); BILIRUBIN,TOTAL 0.5 mg/dl (0.2-1.3); BLOOD UREA NITROGEN 7 mg/dl (9-20); CALCIUM 9.1 mg/dL (8.4-10.2); CARBON DIOXIDE 26 mmol/L (22-30); CHLORIDE 103 mmol/L (98-107); GFR AFRICAN-AMERICAN > 60; GLUCOSE,RANDOM 93 mg/dL (75-110); LIPASE 318 U/L (23-300); POTASSIUM 3.6 MMOL/L (3.6-5.0); SODIUM 141 mmol/l (132-148); TOTAL PROTEIN 6.3 G/DL (6.3-8.2)
[2016-11-25 07:24] VITALS: BP 119/66; PULSE 68; RESP 20; TEMP 98.1; O2SAT 95
--- NOTE | 2016-11-25 07:32 | CP.PCM.PN ---
Subjective - Date & Time of Evaluation Date of Evaluation: 11/25/16 Time of Evaluation: 07:32 - Subjective Subjective: doing well, no f/c, n/v/d. pain controlled. enrique small amt of po. bw noted. for posisble dc today Objective - Vital Signs/Intake and Output Vital Signs (last 24 hours): Temp Pulse Resp BP Pulse Ox 98.1 F 68 20 119/66 95 11/25/16 07:24 11/25/16 07:24 11/25/16 07:24 11/25/16 07:24 11/25/16 07:24 - Medications Medications: Current Medications Amlodipine Besylate (Norvasc) 5 mg PO DAILY [facility] Last Admin: 11/24/16 08:30 Dose: 5 mg Amylase (Pancrease 36841 U-5000 [id number] U) 10,000 u PO TID [facility] Last Admin: 11/24/16 16:36 Dose: 10,000 u Aripiprazole (Abilify) 10 mg PO DAILY [facility] Last Admin: 11/24/16 08:29 Dose: 10 mg Aspirin (Aspirin Chewable) 81 mg PO DAILY [facility] Last Admin: 11/24/16 08:29 Dose: 81 mg Atorvastatin Calcium (Lipitor) 40 mg PO DAILY [facility] Last Admin: 11/24/16 08:29 Dose: 40 mg Clonazepam (Klonopin) 1 mg PO BID PRN PRN Reason: Anxiety Escitalopram Oxalate (Lexapro) 20 mg PO DAILY [facility] Last Admin: 11/24/16 09:35 Dose: 20 mg Famotidine (Pepcid) 20 mg IVP Q12 [facility] Last Admin: 11/24/16 21:04 Dose: 20 mg Fenofibrate (Tricor) 145 mg PO DAILY [facility] Last Admin: 11/24/16 08:30 Dose: 145 mg Home Med (Melatonin [Melatin]) 3 mg PO DAILY [facility] Last Admin: 11/24/16 08:37 Dose: Not Given Hydromorphone HCl (Dilaudid) 2 mg IVP Q4 PRN PRN Reason: Pain, severe (8-10) Last Admin: 11/25/16 04:34 Dose: 2 mg Lactated Ringer's (Lactated Ringer's) 1,000 mls @ 125 mls/hr IV .Q8H [facility] Last Admin: 11/25/16 07:26 Dose: 125 mls/hr Ketorolac Tromethamine (Toradol) 30 mg IVP Q6 PRN PRN Reason: Pain, Mild (1-3) Last Admin: 11/23/16 00:04 Dose: 30 mg Lisinopril (Zestril) 20 mg PO DAILY [facility] Last Admin: 11/24/16 08:30 Dose: 20 mg Morphine Sulfate (Morphine) 4 mg IVP Q4 PRN PRN Reason: Pain, moderate (4-7) Ondansetron HCl (Zofran Inj) 4 mg IVP Q6 PRN PRN Reason: Nausea/Vomiting Last Admin: 11/23/16 20:14 Dose: 4 mg Ondansetron HCl (Zofran Tab) 4 mg PO Q8 PRN PRN Reason: Nausea/Vomiting Pantoprazole Sodium (Protonix Ec Tab) 40 mg PO DAILY [facility] Last Admin: 11/24/16 08:28 Dose: 40 mg Promethazine HCl (Phenergan Inj) 25 mg IM Q6 PRN PRN Reason: Nausea/Vomiting Last Admin: 11/23/16 08:28 Dose: 25 mg Quetiapine Fumarate (Seroquel) 300 mg PO HS [facility] Stop: 11/26/16 00:31 Last Admin: 11/24/16 21:04 Dose: 300 mg - Labs Labs: 11/25/16 06:10 11/25/16 06:10 PT 11.8 Seconds (9.8-13.1) 11/22/16 20:30 INR 1.1 (0.9-1.2) 11/22/16 20:30 APTT 28.9 Seconds (25.6-37.1) 11/22/16 20:30 - Constitutional Appears: Well, Non-toxic, No Acute Distress - Head Exam Head Exam: ATRAUMATIC, NORMAL INSPECTION, NORMOCEPHALIC - Eye Exam Eye Exam: EOMI, Normal appearance, PERRL Pupil Exam: NORMAL ACCOMODATION, PERRL - ENT Exam ENT Exam: Mucous Membranes Moist, Normal Exam - Neck Exam Neck Exam: Full ROM, Normal Inspection. absent: Lymphadenopathy - Respiratory Exam Respiratory Exam: Clear to Ausculation Bilateral, NORMAL BREATHING PATTERN - Cardiovascular Exam Cardiovascular Exam: REGULAR RHYTHM, RRR, +S1, +S2. absent: Murmur - GI/Abdominal Exam GI & Abdominal Exam: Soft, Normal Bowel Sounds. absent: Tenderness - Extremities Exam Extremities Exam: Full ROM, Normal Capillary Refill, Normal Inspection. absent : Joint Swelling, Pedal Edema - Back Exam Back Exam: NORMAL INSPECTION - Neurological Exam Neurological Exam: Alert, Awake, CN II-XII Intact, Normal Gait, Oriented x3 - Psychiatric Exam Psychiatric exam: Normal Affect, Normal Mood - Skin Skin Exam: Dry, Intact, Normal Color, Warm Assessment and Plan (1) Pancreatitis Status: Acute (2) Alcohol abuse Status: Acute (3) DVT prophylaxis Status: Acute - Assessment and Plan (Free Text) Assessment: (1) Pancreatitis Assessment and Plan: trend lipase/tri gi ivf npo adv as per gi and as enrique paina dn nausea control enrique small amt of po Status: Acute (2) Alcohol abuse Assessment and Plan: alcohol withdrawal monitor cessation education Status: Acute (3) DVT prophylaxis Assessment and Plan: scd nad aehose ambulation Status: Acute
[2016-11-25] MEDS: Amylase/Lipase/Protease 5,000 U ECC PO SCH ×2 (08:42→13:13)
[2016-11-25] MEDS: Pantoprazole 40 mg EC Tab PO SCH (08:43)
--- NOTE | 2016-11-25 12:36 | CP.PCM.PN ---
Subjective - Date & Time of Evaluation Date of Evaluation: 11/25/16 Time of Evaluation: 12:20 - Subjective Subjective: no pain Objective - Vital Signs/Intake and Output Vital Signs (last 24 hours): Temp Pulse Resp BP Pulse Ox 98.1 F 68 20 119/66 95 11/25/16 07:24 11/25/16 08:43 11/25/16 07:24 11/25/16 08:43 11/25/16 07:24 - Medications Medications: Current Medications Amlodipine Besylate (Norvasc) 5 mg PO DAILY [facility] Last Admin: 11/25/16 08:41 Dose: 5 mg Amylase (Pancrease [id number] U-5000 [id number] U) 10,000 u PO TID [facility] Last Admin: 11/25/16 08:42 Dose: 10,000 u Aripiprazole (Abilify) 10 mg PO DAILY [facility] Last Admin: 11/25/16 08:39 Dose: 10 mg Aspirin (Aspirin Chewable) 81 mg PO DAILY [facility] Last Admin: 11/25/16 08:39 Dose: 81 mg Atorvastatin Calcium (Lipitor) 40 mg PO DAILY [facility] Last Admin: 11/25/16 08:40 Dose: 40 mg Clonazepam (Klonopin) 1 mg PO BID PRN PRN Reason: Anxiety Escitalopram Oxalate (Lexapro) 20 mg PO DAILY [facility] Last Admin: 11/25/16 08:40 Dose: 20 mg Fenofibrate (Tricor) 145 mg PO DAILY [facility] Last Admin: 11/25/16 08:43 Dose: 145 mg Home Med (Melatonin [Melatin]) 3 mg PO DAILY [facility] Last Admin: 11/25/16 08:55 Dose: Not Given Hydromorphone HCl (Dilaudid) 2 mg IVP Q4 PRN PRN Reason: Pain, severe (8-10) Last Admin: 11/25/16 08:33 Dose: 2 mg Lactated Ringer's (Lactated Ringer's) 1,000 mls @ 125 mls/hr IV .Q8H [facility] Last Admin: 11/25/16 07:26 Dose: 125 mls/hr Ketorolac Tromethamine (Toradol) 30 mg IVP Q6 PRN PRN Reason: Pain, Mild (1-3) Last Admin: 11/23/16 00:04 Dose: 30 mg Lisinopril (Zestril) 20 mg PO DAILY [facility] Last Admin: 11/25/16 08:43 Dose: 20 mg Morphine Sulfate (Morphine) 4 mg IVP Q4 PRN PRN Reason: Pain, moderate (4-7) Ondansetron HCl (Zofran Inj) 4 mg IVP Q6 PRN PRN Reason: Nausea/Vomiting Last Admin: 11/23/16 20:14 Dose: 4 mg Ondansetron HCl (Zofran Tab) 4 mg PO Q8 PRN PRN Reason: Nausea/Vomiting Pantoprazole Sodium (Protonix Ec Tab) 40 mg PO DAILY [facility] Last Admin: 11/25/16 08:43 Dose: 40 mg Promethazine HCl (Phenergan Inj) 25 mg IM Q6 PRN PRN Reason: Nausea/Vomiting Last Admin: 11/23/16 08:28 Dose: 25 mg Quetiapine Fumarate (Seroquel) 300 mg PO HS [facility] Stop: 11/26/16 00:31 Last Admin: 11/24/16 21:04 Dose: 300 mg - Labs Labs: 11/25/16 06:10 11/25/16 06:10 PT 11.8 Seconds (9.8-13.1) 11/22/16 20:30 INR 1.1 (0.9-1.2) 11/22/16 20:30 APTT 28.9 Seconds (25.6-37.1) 11/22/16 20:30 - Eye Exam Eye Exam: Normal appearance Pupil Exam: NORMAL ACCOMODATION - Neck Exam Neck Exam: Normal Inspection - Respiratory Exam Respiratory Exam: Clear to Ausculation Bilateral, NORMAL BREATHING PATTERN - Cardiovascular Exam Cardiovascular Exam: REGULAR RHYTHM - GI/Abdominal Exam GI & Abdominal Exam: Soft, Normal Bowel Sounds Assessment and Plan - Assessment and Plan (Free Text) Assessment: 41 yo male with alcoholic pancreatitis doing well dc planning ct in 8 weeks
--- NOTE | 2016-11-29 11:12 | CP.PCM.DIS ---
Provider - Provider Date of Admission: 11/22/16 20:59 Attending physician: Malissa Johnson MD Time Spent in preparation of Discharge (in minutes): 15 Diagnosis - Discharge Diagnosis (1) Pancreatitis Status: Acute (2) Alcohol abuse Status: Acute (3) DVT prophylaxis Status: Acute Hospital Course - Lab Results Lab Results: Most Recent Lab Values WBC 7.4 K/uL (4.8-10.8) 11/25/16 06:10 RBC 4.13 Mil/uL (4.40-5.90) L 11/25/16 06:10 Hgb 13.6 g/dL (12.0-18.0) 11/25/16 06:10 Hct 40.4 % (35.0-51.0) 11/25/16 06:10 MCV 97.8 fl (80.0-94.0) H 11/25/16 06:10 MCH 32.9 pg (27.0-31.0) H 11/25/16 06:10 MCHC 33.7 g/dL (33.0-37.0) 11/25/16 06:10 RDW 13.9 % (11.5-14.5) 11/25/16 06:10 Plt Count 148 K/uL (130-400) 11/25/16 06:10 MPV 8.6 fl (7.2-11.7) 11/25/16 06:10 Neut % (Auto) 62.0 % (50.0-75.0) 11/25/16 06:10 Lymph % (Auto) 25.9 % (20.0-40.0) 11/25/16 06:10 [place] % (Auto) 9.0 % (0.0-10.0) 11/25/16 06:10 Eos % (Auto) 2.3 % (0.0-4.0) 11/25/16 06:10 Baso % (Auto) 0.8 % (0.0-2.0) 11/25/16 06:10 Neut # 4.6 K/uL (1.8-7.0) 11/25/16 06:10 Lymph # 1.9 K/uL (1.0-4.3) 11/25/16 06:10 [place] # 0.7 K/uL (0.0-0.8) 11/25/16 06:10 Eos # 0.2 K/uL (0.0-0.7) 11/25/16 06:10 Baso # 0.1 K/uL (0.0-0.2) 11/25/16 06:10 PT 11.8 Seconds (9.8-13.1) 11/22/16 20:30 INR 1.1 (0.9-1.2) 11/22/16 20:30 APTT 28.9 Seconds (25.6-37.1) 11/22/16 20:30 Sodium 141 mmol/l (132-148) 11/25/16 06:10 Potassium 3.6 MMOL/L (3.6-5.0) 11/25/16 06:10 Chloride 103 mmol/L (98-107) 11/25/16 06:10 Carbon Dioxide 26 mmol/L (22-30) 11/25/16 06:10 Anion Gap 15 (10-20) 11/25/16 06:10 BUN 7 mg/dl (9-20) L 11/25/16 06:10 Creatinine 0.7 mg/dL (0.8-1.5) L 11/25/16 06:10 Est GFR ( Amer) > 60 11/25/16 06:10 Est GFR (Non-Af Amer) > 60 11/25/16 06:10 POC Glucose (mg/dL) 94 mg/dL (65-110) 11/23/16 00:55 Random Glucose 93 mg/dL (75-110) 11/25/16 06:10 Calcium 9.1 mg/dL (8.4-10.2) 11/25/16 06:10 Total Bilirubin 0.5 mg/dl (0.2-1.3) 11/25/16 06:10 AST 20 U/L (17-59) 11/25/16 06:10 ALT 29 U/L (21-72) 11/25/16 06:10 Alkaline Phosphatase 55 U/L (38-126) 11/25/16 06:10 Lactate Dehydrogenase 384 U/L (313-618) 11/22/16 20:30 Total Protein 6.3 G/DL (6.3-8.2) 11/25/16 06:10 Albumin 3.6 g/dL (3.5-5.0) 11/25/16 06:10 Globulin 2.7 gm/dL (2.2-3.9) 11/25/16 06:10 Albumin/Globulin Ratio 1.3 (1.0-2.1) 11/25/16 06:10 Triglycerides 485 mg/DL (0-149) H 11/23/16 06:05 Cholesterol 136 mg/dL (0-199) 11/23/16 06:05 LDL Cholesterol Direct 54 mg/dL (0-129) 11/23/16 06:05 HDL Cholesterol 33 MG/DL (30-70) 11/23/16 06:05 Lipase 318 U/L (23-300) H 11/25/16 06:10 Urine Color Yellow (YELLOW) 11/22/16 21:40 Urine Clarity Clear (Clear) 11/22/16 21:40 Urine pH 6.0 (5.0-8.0) 11/22/16 21:40 Ur Specific [place] 1.011 (1.003-1.030) 11/22/16 21:40 Urine Protein Negative mg/dL (NEGATIVE) 11/22/16 21:40 Urine Glucose (UA) Neg mg/dL (Normal) 11/22/16 21:40 Urine Ketones Negative mg/dL (NEGATIVE) 11/22/16 21:40 Urine Blood Negative (NEGATIVE) 11/22/16 21:40 Urine Nitrate Negative (NEGATIVE) 11/22/16 21:40 Urine Bilirubin Negative (NEGATIVE) 11/22/16 21:40 Urine Urobilinogen 0.2-1.0 mg/dL (0.2-1.0) 11/22/16 21:40 Ur Leukocyte Esterase Trace Doyle/uL (Negative) 11/22/16 21:40 Urine RBC (Auto) 4 /hpf (0-3) H 11/22/16 21:40 Urine Microscopic WBC 11 /hpf (0-5) H 11/22/16 21:40 Urine Bacteria Rare (<OCC) 11/22/16 21:40 Urine Opiates Screen Negative (NEGATIVE) 11/22/16 21:40 Urine Methadone Screen Negative (NEGATIVE) 11/22/16 21:40 Ur Barbiturates Screen Negative (NEGATIVE) 11/22/16 21:40 Ur Phencyclidine Scrn Negative (NEGATIVE) 11/22/16 21:40 Ur Amphetamines Screen Negative (NEGATIVE) 11/22/16 21:40 U Benzodiazepines Scrn Negative (NEGATIVE) 11/22/16 21:40 U Oth Cocaine Metabols Negative (NEGATIVE) 11/22/16 21:40 U Cannabinoids Screen Negative (NEGATIVE) 11/22/16 21:40 Alcohol, Quantitative < 10 mg/dl (0-10) 11/22/16 20:30 Discharge Exam - Head Exam Head Exam: ATRAUMATIC, NORMAL INSPECTION, NORMOCEPHALIC Discharge Plan - Discharge Medications Prescriptions: oxyCODONE/Acetaminophen [Percocet 5/325 mg Tab] 1 tab PO Q12 #10 tab - Follow Up Plan Condition: FAIR Disposition: HOME/ ROUTINE Instructions: Oxycodone/Acetaminophen (By mouth), Pancreatitis (DC), Alcohol Withdrawal (DC) Additional Instructions: final dx-pancreatitis, alcohol cessation rted prn, meds per med rec, hydration follow up with primary MD in 7-10days Referrals: Malissa Johnson MD [Staff Provider] - Jose Eduardo Jimenez MD, PhD [Staff Provider] -
== END 2016-11-25 15:05 | disposition home or self-care (01) | DRG 439 ==
LOC: H.ER 19:26 → H.ERHOLD 20:59 → H.MEDSURG1 23:18
PROVIDERS: ADMIT Family Medicine; ATTEND Family Medicine
PROC: 3E0234Z Introduction of Serum, Toxoid and Vaccine into Muscle, Percutaneous Approach (ICD-10-PCS; principal; 2016-11-23)
DX: K85.20 Alcohol induced acute pancreatitis without necrosis or infection (principal); F10.239 Alcohol dependence with withdrawal, unspecified; I10 Essential (primary) hypertension; E78.5 Hyperlipidemia, unspecified; K29.70 Gastritis, unspecified, without bleeding; E78.1 Pure hyperglyceridemia; F41.9 Anxiety disorder, unspecified; F32.9 Major depressive disorder, single episode, unspecified; Z23 Encounter for immunization

== ENCOUNTER 2017-04-23 14:03 | Inpatient (IN) | payer OTHER ==
[2017-04-23 14:03] VITALS: BMI 25.1
[2017-04-23] MEDS ORDERED: Sodium Chloride 0.9% 1,000 ML IV STA ×2 (14:58→17:05)
[2017-04-23] MEDS ORDERED: Morphine 4 MG/ML VIAL IVP ONE (14:58)
[2017-04-23] MEDS ORDERED: Lactated Ringer's 1,000 ML IV SCH ×2 (15:00→17:45)
[2017-04-23] MEDS ORDERED: Morphine 4 MG/ML VIAL ONE (15:06)
[2017-04-23 15:09] LABS: BASO # 0.1 K/uL (0.0-0.2); BASO % 0.6 % (0.0-2.0); EOS % 0.2 % (0.0-4.0); HEMOGLOBIN 16.6 g/dL (12.0-18.0); LYMPH # 1.3 K/uL (1.0-4.3); LYMPH % 9.9 % (20.0-40.0); MEAN CORPUSCULAR HEMOGLOBIN 31.9 pg (27.0-31.0); MONO # 0.8 K/uL (0.0-0.8); MONO % 5.8 % (0.0-10.0); NEUT # 11.1 K/uL (1.8-7.0); NEUT % 83.5 % (50.0-75.0); NRBC % 0.1 % (0.0-0.0); PLATELET COUNT 221 K/uL (130-400); RED CELL DISTRIBUTION WIDTH 14.5 % (11.5-14.5); WHITE BLOOD COUNT 13.3 K/uL (4.8-10.8)
--- NOTE | 2017-04-23 15:37 | ED PDOC ---
HPI: Abdomen Time Seen by Provider: 04/23/17 14:35 Chief Complaint (Nursing): Chest Pain Chief Complaint (Provider): Abdominal Pain History Per: Patient History/Exam Limitations: no limitations Onset/Duration Of Symptoms: Days (x1) Outside of [place] travel?: No Current Symptoms Are (Timing): Still Present Quality Of Discomfort: "Pain" Associated Symptoms: Vomiting. denies: Fever, Nausea, Diarrhea, Chest Pain Exacerbating Factors: None Alleviating Factors: None Additional Complaint(s): 42 year old male with a past medical history of pancreatitis, gastritis, diverticulitis and hypertension presents to the ED complaining of radiating, constant and worsening abdominal pain which began yesterday. The patient reports that the pain radiates into chest down into his lower abdomen and to his back. He states that he had similar pains in the past when he was diagnosed with acute pancreatitis and also states that he has been admitted several times for these same symptoms. The patient reports that he also had several episodes of vomiting. Denies fever, nausea, diarrhea, difficulty breathing, headache, syncope and rectal bleeding. Of note: Patient states that he consumed a significant amount of alcohol yesterday. PMD: [facility] Past Medical History Reviewed: Historical Data, Nursing Documentation, Vital Signs Vital Signs: Last Vital Signs Temp 98.2 F 04/23/17 14:15 Pulse 87 04/23/17 17:13 Resp 20 04/23/17 17:13 BP 142/91 H 04/23/17 17:13 Pulse Ox 96 04/23/17 17:13 - Medical History PMH: Anxiety, Depression, Diverticulitis, Gastritis, HTN, Hypercholesterolemia, Hyperlipidemia, Pancreatitis Denies: Diabetes, Hepatitis, HIV, Chronic Kidney Disease, Seizures, Sexually Transmitted Disease - Surgical History Surgical History: No Surg Hx - Family History Family History: States: Unknown Family Hx, CAD (in father) - Social History Alcohol: None Drugs: Denies - Immunization History Hx Tetanus Toxoid Vaccination: No Hx Influenza Vaccination: Yes Hx Pneumococcal Vaccination: No - Home Medications Home Medications: Ambulatory Orders Medication Instructions Recorded Amlodipine Besylate/Benazepril 1 cap PO DAILY 08/11/15 [Lotrel 5-20 mg Capsule] Omeprazole Magnesium [Prilosec Otc] 1 tab PO DAILY 08/11/15 clonazePAM [Klonopin] 1 mg PO BID PRN 08/11/15 QUEtiapine [SEROquel] 300 mg PO HS 04/29/16 ARIPiprazole [Abilify] 10 mg PO DAILY 11/22/16 Aspirin [Aspirin Chewable] 81 mg PO DAILY 11/22/16 Escitalopram [Lexapro] 20 mg PO DAILY 11/22/16 Fenofibrate [Tricor] 145 mg PO DAILY 11/22/16 Lipase/Protease/Amylase [Zenpep Dr 1 cap PO TID 11/22/16 10,000 Unit Capsule] Melatonin [Melatin] 9 mg PO HS 11/22/16 Ondansetron HCl [Zofran] 4 mg PO Q8 PRN 11/22/16 Rosuvastatin Calcium [Crestor] 20 mg PO DAILY 11/22/16 oxyCODONE/Acetaminophen [Percocet 1 tab PO Q12 #10 tab 11/25/16 5/325 mg Tab] - Allergies Allergies/Adverse Reactions: Allergies Allergy/AdvReac Type Severity Reaction Status Date / Time No Known Allergies Allergy Verified 11/22/16 19:36 Review of Systems ROS Statement: Except As Marked, All Systems Reviewed And Found Negative Constitutional: Negative for: Fever Respiratory: Negative for: Shortness of Breath Gastrointestinal: Positive for: Vomiting, Abdominal Pain, Other (denies rectal bleeding). Negative for: Diarrhea Neurological: Positive for: Other (denies syncope). Negative for: Headache Physical Exam - Reviewed Nursing Documentation Reviewed: Yes Vital Signs Reviewed: Yes - Physical Exam Appears: Positive for: Non-toxic, No Acute Distress Head Exam: Positive for: ATRAUMATIC, NORMAL INSPECTION, NORMOCEPHALIC Skin: Positive for: Normal Color, Warm, Dry. Negative for: Rash Eye Exam: Positive for: Normal appearance, EOMI, PERRL. Negative for: Nystagmus ENT: Positive for: Normal ENT Inspection. Negative for: Nasal Congestion, Tonsillar Exudate, Tonsillar Swelling Neck: Positive for: Normal, Painless ROM, Supple Cardiovascular/Chest: Positive for: Regular Rate, Rhythm, Chest Non Tender. Negative for: Murmur, Tachycardia Respiratory: Positive for: Normal Breath Sounds. Negative for: Rales, Rhonchi, Wheezing, Respiratory Distress Gastrointestinal/Abdominal: Positive for: Bowel Sounds, Soft, Tenderness ( epigastric tenderness). Negative for: Mass, Guarding, Rebound Back: Positive for: Normal Inspection. Negative for: L CVA Tenderness, R CVA Tenderness, Vertebral Tenderness Extremity: Positive for: Normal ROM. Negative for: Tenderness, Deformity, Swelling Neurologic/Psych: Positive for: Alert, Oriented, Gait - Laboratory Results Result Diagrams: 04/23/17 15:04 04/23/17 15:04 - ECG O2 Sat by Pulse Oximetry: 96 (RA) Pulse Ox Interpretation: Normal Medical Decision Making Medical Decision Makin Initial Impression 42 year old male presenting with abdominal pain and vomiting Differentials: Acute Alcohol Pancreatitis as well as Biliary Disease, Peptic Ulcer Disease, Gastritis Initial Plan: * CT ABD&PELIS IV Contrast * CMP * Lipase * Troponin * CBC * Lactated ringers 1000ml IV 1000 mls/hr * Morphine 4mg * NS 1000ml IV 1000mls/hr * Zofran 4mg IV * Reevaluation 1522 Normal EKG at 77bpm. Documented by Kezia So acting as a scribe for Neli Flores MD. All medical record entries made by the Scribe were at my direction and personally dictated by me. I have reviewed the chart and agree that the record accurately reflects my personal performance of the history, physical exam, medical decision making, and the department course for this patient. I have also personally directed, reviewed, and agree with the discharge instructions and disposition. Disposition - Clinical Impression Clinical Impression: Pancreatitis, alcoholic, acute - Patient ED Disposition Is Patient to be Admitted: Yes Discussed With : Natanael Johnson Doctor Will See Patient In The: Hospital Counseled Patient/Family Regarding: Studies Performed, Diagnosis - Disposition Disposition Time: 17:20 Condition: FAIR - Pt Status Changed To: Hospital Disposition Of: Inpatient - Admit Certification Admit to Inpatient:: After my assessment, the patient will require hospitalization for at least two midnights. This is because of the severity of symptoms shown, intensity of services needed, and/or the medical risk in this patient being treated as an outpatient. - POA Present On Arrival: None
[2017-04-23 15:40] LABS: BLOOD UREA NITROGEN 11 mg/dl (9-20); GFR AFRICAN-AMERICAN > 60; GFR NON-AFRICAN AMERICAN > 60
[2017-04-23 16:12] LABS: BANDS 2 % (0-2); LYMPHOCYTE 10 % (20-50); MONOCYTE 5 % (0-10); NEUTROPHIL 83 % (42-75); TOTAL CELLS COUNTED 100
[2017-04-23 16:13] LABS: PLATELET ESTIMATE NORMAL (NORMAL)
[2017-04-23 16:18] LABS: ALB/GLOB RATIO 1.4 (1.0-2.1); ALBUMIN 4.3 g/dL (3.5-5.0); ALT/SGPT 59 U/L (21-72); AST/SGOT 42 U/L (17-59); CALCIUM 9.4 mg/dL (8.4-10.2)
[2017-04-23] MEDS ORDERED: Iohexol 300 100 ML IJ ONE (16:36)
[2017-04-23] MEDS ORDERED: Sodium Chloride 0.9% 100 ML ONE (16:36)
[2017-04-23 16:42] LABS: LIPASE 6573 U/L (23-300)
[2017-04-23] MEDS ORDERED: Morphine 4 MG/ML VIAL IVP PRN (17:41)
[2017-04-23] MEDS: Lactated Ringer's 1,000 ML IV SCH (20:22)
--- NOTE | 2017-04-23 20:30 | US ---
EXAM: US Abdomen Limited, Right Upper Quadrant EXAM DATE/TIME: 04/23/2017 5:05 PM CLINICAL HISTORY: 42 years old, male; Pain; Abdominal pain; Epigastric; Additional info: Epigastric pain elevated lipase TECHNIQUE: Real-time ultrasound of the right upper quadrant with image documentation. COMPARISON: Recent CT abdomen of 2017-04-23 FINDINGS: Gallbladder: Within normal limits in appearance, without evidence of gallstones, significant gallbladder wall thickening, or pericholecystic fluid. Reportedly negative sonographic Bond's sign. Common bile duct: Does not appear abnormally dilated, measuring less than 6 mm in diameter. Liver: Incompletely seen due to gas. Demonstrates diffusely increased parenchymal echogenicity, most compatible with fatty infiltration. Enlarged, measuring 20 cm in length. Normal flow seen in the main portal vein on color and Doppler imaging. Pancreas: Within normal limits in appearance. The acute pancreatitis seen on the recent abdominal CT is not visible sonographically. Right kidney: Within normal limits in appearance. Measures 13 cm in length. No evidence of hydronephrosis. IMPRESSION: No evidence of cholecystitis, biliary ductal dilatation or other significant acute abnormality. Enlarged, fatty liver. See above for remaining findings.
[2017-04-23] MEDS: HYDROmorphone 0.5 mg/0.5 ml ISec IVP PRN (21:00)
[2017-04-23] MEDS ORDERED: MELATONIN 9 MG PO SCH (23:30)
[2017-04-24] MEDS: HYDROmorphone 0.5 mg/0.5 ml ISec IVP PRN ×6 (00:23→20:09)
[2017-04-24] MEDS: Lactated Ringer's 1,000 ML IV SCH ×2 (02:52→20:25)
[2017-04-24 07:07] LABS: BASO % 0.4 % (0.0-2.0); EOS % 0.3 % (0.0-4.0); HEMOGLOBIN 15.6 g/dL (12.0-18.0); LYMPH # 1.1 K/uL (1.0-4.3); LYMPH % 13.8 % (20.0-40.0); MEAN CELL VOLUME 94.7 fl (80.0-94.0); MEAN CORPUSCULAR HEMOGLOBIN 32.2 pg (27.0-31.0); MEAN PLATELET VOLUME 8.5 fl (7.2-11.7); MONO # 0.3 K/uL (0.0-0.8); NEUT # 6.4 K/uL (1.8-7.0); NEUT % 81.5 % (50.0-75.0); RBC 4.84 Mil/uL (4.40-5.90); RED CELL DISTRIBUTION WIDTH 14.6 % (11.5-14.5); WHITE BLOOD COUNT 7.8 K/uL (4.8-10.8)
[2017-04-24 07:19] LABS: ALB/GLOB RATIO 1.2 (1.0-2.1); ALBUMIN 3.6 g/dL (3.5-5.0); ALT/SGPT 49 U/L (21-72); AST/SGOT 26 U/L (17-59); BLOOD UREA NITROGEN 8 mg/dl (9-20); CALCIUM 8.8 mg/dL (8.4-10.2); GFR AFRICAN-AMERICAN > 60; GFR NON-AFRICAN AMERICAN > 60; HDL CHOLESTEROL 36 MG/DL (30-70); LIPASE 3148 U/L (23-300)
[2017-04-24 07:20] LABS: LDL CHOLESTEROL 207 mg/dL (0-129)
--- NOTE | 2017-04-24 08:29 | CP.PCM.HP ---
History of Present Illness - History of Present Illness History of Present Illness: pt admitted for abd pain and acute pancreatitis. no f/c, n/v/d. lipase in 6000s , triglycerides noted.lipase trended down to 3000s. pt states 2 days ago had multiple drinks at a [employer] party, alcohol in er < 10. starting to feel tremulous. Present on Admission - Present on Admission Any Indicators Present on Admission: No Review of Systems - Gastrointestinal Gastrointestinal: As Per HPI, Abdominal Pain Past Patient History - Infectious Disease Hx of Infectious Diseases: None - Tetanus Immunizations Tetanus Immunization: Unknown - Past Medical History & Family History Past Medical History?: Yes - Past Social History Smoking Status: Current Some Days Smoker - CARDIAC Hx Hypercholesterolemia: Yes Hx Hypertension: Yes - PULMONARY Hx Respiratory Disorders: No - NEUROLOGICAL Hx Seizures: No - HEENT Hx HEENT Problems: No - RENAL Hx Chronic Kidney Disease: No - ENDOCRINE/METABOLIC Hx Endocrine Disorders: No - HEMATOLOGICAL/ONCOLOGICAL Hx Human Immunodeficiency Virus (HIV): No - INTEGUMENTARY Hx Dermatological Problems: No - MUSCULOSKELETAL/RHEUMATOLOGICAL Hx Musculoskeletal Disorders: No Hx Falls: No - GASTROINTESTINAL Hx Diverticulitis: Yes Hx Gastritis: Yes Hx Pancreatitis: Yes - GENITOURINARY/GYNECOLOGICAL Hx Sexually Transmitted Disorders: No - PSYCHIATRIC Hx Anxiety: Yes Hx Depression: Yes Hx Substance Use: No - SURGICAL HISTORY Hx Surgeries: Yes Other/Comment: Hx colon resection 2008. Hx B/L knee surgery for meniscus 2004 - ANESTHESIA Hx Anesthesia: Yes Hx Anesthesia Reactions: No Hx Malignant Hyperthermia: No Has any member of the family had a problem w/ anesthesia?: No Meds Allergies/Adverse Reactions: Allergies Allergy/AdvReac Type Severity Reaction Status Date / Time No Known Allergies Allergy Verified 11/22/16 19:36 Physical Exam - Constitutional Appears: Well, Non-toxic, No Acute Distress - Head Exam Head Exam: ATRAUMATIC, NORMAL INSPECTION, NORMOCEPHALIC - Eye Exam Eye Exam: EOMI, Normal appearance, PERRL Pupil Exam: NORMAL ACCOMODATION, PERRL - ENT Exam ENT Exam: Mucous Membranes Moist, Normal Exam - Neck Exam Neck exam: Positive for: Normal Inspection - Respiratory Exam Respiratory Exam: Clear to Auscultation Bilateral, NORMAL BREATHING PATTERN - Cardiovascular Exam Cardiovascular Exam: REGULAR RHYTHM, RRR - GI/Abdominal Exam GI & Abdominal Exam: Normal Bowel Sounds, Soft. absent: Tenderness - Extremities Exam Extremities exam: Positive for: full ROM, normal capillary refill, normal inspection, pedal pulses present - Back Exam Back exam: NORMAL INSPECTION - Neurological Exam Neurological exam: Alert, CN II-XII Intact, Normal Gait, Oriented x3, Reflexes Normal - Psychiatric Exam Psychiatric exam: Normal Affect, Normal Mood - Skin Skin Exam: Dry, Intact, Normal Color, Warm Results - Vital Signs Recent Vital Signs: Last Vital Signs Temp 98.3 F 04/24/17 07:59 Pulse 85 04/24/17 07:59 Resp 18 04/24/17 07:59 BP 130/81 04/24/17 07:59 Pulse Ox 93 L 04/24/17 07:59 - Labs Result Diagrams: 04/24/17 06:10 04/24/17 06:10 Labs: Laboratory Results - last 24 hr 04/23/17 04/23/17 04/23/17 15:04 15:04 18:17 WBC 13.3 H D RBC 5.20 Hgb 16.6 D Hct 48.9 MCV 94.0 D MCH 31.9 H MCHC 34.0 RDW 14.5 Plt Count 221 MPV 8.0 Neut % (Auto) 83.5 H Lymph % (Auto) 9.9 L Weakley % (Auto) 5.8 Eos % (Auto) 0.2 Baso % (Auto) 0.6 Neut # (Auto) 11.1 H Lymph # (Auto) 1.3 Weakley # (Auto) 0.8 Eos # (Auto) 0.0 Baso # (Auto) 0.1 Neutrophils % (Manual) 83 H Band Neutrophils % 2 Lymphocytes % (Manual) 10 L Monocytes % (Manual) 5 Platelet Estimate Normal RBC Morphology Normal Sodium 141 Potassium 4.0 Chloride 103 Carbon Dioxide 22 Anion Gap 20 BUN 11 Creatinine 0.7 L Est GFR ( Amer) > 60 Est GFR (Non-Af Amer) > 60 Random Glucose 120 H Calcium 9.4 Total Bilirubin 0.5 AST 42 ALT 59 Alkaline Phosphatase 59 Troponin I < 0.0120 Total Protein 7.5 Albumin 4.3 Globulin 3.6 Albumin/Globulin Ratio 1.4 Triglycerides Cholesterol LDL Cholesterol Direct HDL Cholesterol Lipase 6573 H Alcohol, Quantitative < 10 04/24/17 04/24/17 06:10 06:10 WBC 7.8 RBC 4.84 Hgb 15.6 Hct 45.8 MCV 94.7 H MCH 32.2 H MCHC 34.0 RDW 14.6 H Plt Count 186 MPV 8.5 Neut % (Auto) 81.5 H Lymph % (Auto) 13.8 L Weakley % (Auto) 4.0 Eos % (Auto) 0.3 Baso % (Auto) 0.4 Neut # (Auto) 6.4 Lymph # (Auto) 1.1 Weakley # (Auto) 0.3 Eos # (Auto) 0.0 Baso # (Auto) 0.0 Neutrophils % (Manual) Band Neutrophils % Lymphocytes % (Manual) Monocytes % (Manual) Platelet Estimate RBC Morphology Sodium 139 Potassium 4.0 Chloride 99 Carbon Dioxide 26 Anion Gap 18 BUN 8 L Creatinine 0.8 Est GFR ( Amer) > 60 Est GFR (Non-Af Amer) > 60 Random Glucose 101 Calcium 8.8 Total Bilirubin 0.5 AST 26 ALT 49 Alkaline Phosphatase 42 Troponin I Total Protein 6.5 Albumin 3.6 Globulin 2.9 Albumin/Globulin Ratio 1.2 Triglycerides 284 H D Cholesterol 274 H LDL Cholesterol Direct 207 H HDL Cholesterol 36 Lipase 3148 H Alcohol, Quantitative Assessment & Plan (1) Dyslipidemia Assessment and Plan: cont home meds diet control Status: Acute (2) Pancreatitis, alcoholic, acute Assessment and Plan: ivf, npo until cleared by gi pain control zofran/pepcid control lipis and trend lipase librium for withdrawal for s/s Status: Acute Priority: High (3) DVT prophylaxis Assessment and Plan: scd nad ae hose ambulation Status: Acute Decision To Admit - Pt Status Changed To: Hospital Disposition Of: Inpatient - Admit Certification Admit to Inpatient:: After my assessment, the patient will require hospitalization for at least two midnights. This is because of the severity of symptoms shown, intensity of services needed, and/or the medical risk in this patient being treated as an outpatient. - . Bed Request Type: Med/Surg Admitting Physician: Malissa Johnson
[2017-04-24] MEDS ORDERED: Amylase/Lipase/Protease 5,000 Units ECC PO SCH (09:00)
--- NOTE | 2017-04-24 09:00 | CT ---
PROCEDURE: CT Abdomen and Pelvis with contrast HISTORY: abdominal pain COMPARISON: Abdomen pelvis CT with contrast 11/22/2016. TECHNIQUE: Following oral and intravenous contrast administration, a CT examination of the abdomen and pelvis performed from the domes of the diaphragms to the symphysis pubis with reformatted datasets provided not only axial but also sagittal and coronal series. Contrast dose: Omnipaque 300, 90 cc Radiation dose: Total exam DLP = 1767.88 mGy-cm. This CT exam was performed using one or more of the following dose reduction techniques: Automated exposure control, adjustment of the mA and/or kV according to patient size, and/or use of iterative reconstruction technique. FINDINGS: LOWER THORAX: Linear atelectasis is appreciate the bilateral dependent lung bases in the interval. No pleural or pericardial effusion. Cardiac size remains upper limits of normal. LIVER: Hepatic steatosis and mild hepatomegaly reiterated. No discrete mass or prominent intrahepatic biliary dilatation evident. GALLBLADDER AND BILE DUCTS: Unremarkable. PANCREAS: Mild prominence of the head through the neck and body of the pancreas is appreciate with peripancreatic reaction suspicious for pancreatitis on acute or subacute basis. No pseudocyst or obvious pancreatic necrosis pattern appreciated this time. Pancreatic duct is not identified which is normal. No radiodense cholelithiasis in the gallbladder. Clinically correlate further. Follow-up CT is advised following resolution to exclude underlying lesion once again. SPLEEN: Unremarkable. ADRENALS: Unremarkable. No mass. KIDNEYS AND URETERS: Right kidney appears unremarkable. A punctate intrarenal calculus is question at the lower pole left kidney. No obstructive uropathy bilaterally. VASCULATURE: Unremarkable. No aortic aneurysm. BOWEL: No obstruction. No gross mural thickening. Limited left colonic diverticular changes are reiterated with an anastomotic site again seen at the distal sigmoid segment. APPENDIX: Appendix again not visualized. Fluid in the upper right pericolic gutter is felt to be a function of pancreatitis. PERITONEUM: Unremarkable. No free fluid. No free air. LYMPH NODES: Unremarkable. No enlarged lymph nodes. BLADDER: Unremarkable. REPRODUCTIVE: Unremarkable. BONES: No acute fracture. OTHER FINDINGS: None. IMPRESSION: Recurrent pancreatitis suggested on acute or subacute basis without pseudocyst formation or pancreatic duct dilatation evident. No radiodense cholelithiasis identified in the interval. No obvious choledocholithiasis. Mild hepatomegaly and hepatic steatosis again appreciated. Stable limited left colonic diverticulosis with postoperative changes distal sigmoid again evident. Punctate solitary intrarenal calculus is questioned lower pole left kidney, nonobstructive. Concordant preliminary report from [facility], 04/23/2017.
[2017-04-24] MEDS: BENAZEPRIL PO SCH (12:08)
[2017-04-24] MEDS: AMLODIPINE BESYLATE PO SCH (12:08)
[2017-04-25] MEDS: HYDROmorphone 0.5 mg/0.5 ml ISec IVP PRN (00:03)
[2017-04-25] MEDS: Lactated Ringer's 1,000 ML IV SCH ×2 (00:07→23:03)
[2017-04-25 07:01] LABS: BASO # 0.1 K/uL (0.0-0.2); BASO % 0.7 % (0.0-2.0); EOS % 0.4 % (0.0-4.0); HEMOGLOBIN 15.1 g/dL (12.0-18.0); LYMPH % 10.4 % (20.0-40.0); MEAN CORPUSCULAR HEMOGLOBIN 32.1 pg (27.0-31.0); MEAN CORPUSCULAR HGB CONC 33.8 g/dL (33.0-37.0); MEAN PLATELET VOLUME 8.8 fl (7.2-11.7); MONO # 0.7 K/uL (0.0-0.8); MONO % 6.6 % (0.0-10.0); NEUT # 8.1 K/uL (1.8-7.0); NEUT % 81.9 % (50.0-75.0); NRBC % 0.1 % (0.0-0.0); RBC 4.68 Mil/uL (4.40-5.90); WHITE BLOOD COUNT 9.9 K/uL (4.8-10.8)
[2017-04-25 07:13] LABS: ALB/GLOB RATIO 1.1 (1.0-2.1); ALBUMIN 3.4 g/dL (3.5-5.0); ALT/SGPT 35 U/L (21-72); AST/SGOT 19 U/L (17-59); BLOOD UREA NITROGEN 7 mg/dl (9-20); GFR AFRICAN-AMERICAN > 60; GFR NON-AFRICAN AMERICAN > 60; LIPASE 948 U/L (23-300)
--- NOTE | 2017-04-25 07:26 | CP.PCM.PN ---
Subjective - Date & Time of Evaluation Date of Evaluation: 04/25/17 Time of Evaluation: 07:26 - Subjective Subjective: pt doing well, less pain, lipase trending down. no f/c, n/v/d. all labs reviewed. Objective - Vital Signs/Intake and Output Vital Signs (last 24 hours): Temp Pulse Resp BP Pulse Ox 99.5 F 95 H 18 127/78 95 04/24/17 23:42 04/24/17 23:42 04/24/17 23:42 04/24/17 23:42 04/24/17 23:42 - Medications Medications: Current Medications Acetaminophen (Tylenol 325mg Tab) 650 mg PO Q4 PRN PRN Reason: Fever >100.4 F Aripiprazole (Abilify) 10 mg PO DAILY [facility] Last Admin: 04/24/17 09:11 Dose: 10 mg Aspirin (Aspirin Chewable) 81 mg PO DAILY [facility] Last Admin: 04/24/17 09:11 Dose: 81 mg Atorvastatin Calcium (Lipitor) 40 mg PO DAILY [facility] Last Admin: 04/24/17 09:16 Dose: 40 mg Chlordiazepoxide (Librium) 25 mg PO 0000,0600,1200,1800 [facility] Last Admin: 04/25/17 05:57 Dose: 25 mg Clonazepam (Klonopin) 1 mg PO BID PRN PRN Reason: Anxiety Escitalopram Oxalate (Lexapro) 20 mg PO DAILY [facility] Last Admin: 04/24/17 09:12 Dose: 20 mg Famotidine (Famotidine) 20 mg IVP Q12 [facility] Last Admin: 04/24/17 20:08 Dose: 20 mg Fenofibrate (Tricor) 145 mg PO DAILY [facility] Last Admin: 04/24/17 09:12 Dose: 145 mg Home Med (Amlodipine Besylate/Benazepril [Lotrel 5-20 Mg Capsule]) 1 cap PO DAILY [facility] Last Admin: 04/24/17 12:08 Dose: 1 cap Home Med (Lipase/Protease/Amylase [Zenpep Dr 10,000 Unit Capsule]) 1 cap PO TID [facility] Home Med (Melatonin [Melatin]) 9 mg PO HS [facility] Last Admin: 04/24/17 21:27 Dose: 9 mg Hydromorphone HCl (Dilaudid) 1 mg IVP Q4 PRN PRN Reason: Pain, moderate (4-7) Last Admin: 04/25/17 04:01 Dose: 1 mg Lactated Ringer's (Lactated Ringer's) 1,000 mls @ 150 mls/hr IV .Q6H40M [facility] Last Admin: 04/25/17 00:07 Dose: 150 mls/hr Ketorolac Tromethamine (Toradol) 30 mg IVP Q6 PRN PRN Reason: Pain, Mild (1-3) Last Admin: 04/24/17 02:49 Dose: 30 mg Morphine Sulfate (Morphine) 2 mg IVP Q4 PRN PRN Reason: Pain, moderate (4-7) Morphine Sulfate (Morphine) 4 mg IVP Q4 PRN PRN Reason: Pain, severe (8-10) Ondansetron HCl (Zofran Inj) 4 mg IVP Q6 PRN PRN Reason: Nausea/Vomiting Quetiapine Fumarate (Seroquel) 300 mg PO HS [facility] Last Admin: 04/24/17 21:23 Dose: 300 mg - Labs Labs: 04/24/17 06:10 04/25/17 05:55 - Constitutional Appears: Well, Non-toxic, No Acute Distress - Head Exam Head Exam: ATRAUMATIC, NORMAL INSPECTION, NORMOCEPHALIC - Eye Exam Eye Exam: EOMI, Normal appearance, PERRL Pupil Exam: NORMAL ACCOMODATION, PERRL - ENT Exam ENT Exam: Mucous Membranes Moist, Normal Exam - Neck Exam Neck Exam: Full ROM, Normal Inspection. absent: Lymphadenopathy - Respiratory Exam Respiratory Exam: Clear to Ausculation Bilateral, NORMAL BREATHING PATTERN - Cardiovascular Exam Cardiovascular Exam: REGULAR RHYTHM, RRR, +S1, +S2. absent: Murmur - GI/Abdominal Exam GI & Abdominal Exam: Soft, Normal Bowel Sounds. absent: Tenderness - Extremities Exam Extremities Exam: Full ROM, Normal Capillary Refill, Normal Inspection. absent : Joint Swelling, Pedal Edema - Back Exam Back Exam: NORMAL INSPECTION - Neurological Exam Neurological Exam: Alert, Awake, CN II-XII Intact, Normal Gait, Oriented x3 - Psychiatric Exam Psychiatric exam: Normal Affect, Normal Mood - Skin Skin Exam: Dry, Intact, Normal Color, Warm Assessment and Plan (1) Dyslipidemia Status: Acute (2) Pancreatitis, alcoholic, acute Status: Acute (3) DVT prophylaxis Status: Acute - Assessment and Plan (Free Text) Assessment: (1) Dyslipidemia Assessment and Plan: cont home meds diet control Status: Acute (2) Pancreatitis, alcoholic, acute Assessment and Plan: ivf, cld pain control zofran/pepcid control lipis and trend lipase librium for withdrawal for s/s Status: Acute Priority: High (3) DVT prophylaxis Assessment and Plan: scd nad ae hose ambulation Status: Acute
[2017-04-25] MEDS: BENAZEPRIL PO SCH (08:45)
[2017-04-25] MEDS: AMLODIPINE BESYLATE PO SCH (08:45)
--- NOTE | 2017-04-25 08:45 | CON ---
DATE: 04/24/2017 REFERRING DOCTOR: Dr. Johnson. REASON FOR CONSULTATION: Pancreatitis. HISTORY OF PRESENT ILLNESS: This is a pleasant 42-year-old male multiple admission. The patient is ongoing alcoholic drinker with recurrent pancreatitis, the patient comes in for having had few drinks of alcohol on Monday and Monday morning woke up with severe abdominal pain and discomfort, which has been persisted, but improved on admission. The patient is not hunger at this point. No nausea or vomiting at the bed, but the pain is still there. No fever. No chills. Lying in bed comfortably, in no apparent distress. PAST MEDICAL HISTORY: As above. PAST SURGICAL HISTORY: As above. MEDICATIONS: Have been reviewed. REVIEW OF SYSTEMS: All other systems have been reviewed and negative apart from the HPI. PHYSICAL EXAMINATION: VITAL SIGNS: Here in the hospital, grossly unremarkable. GENERAL: A pleasant middle-age male, lying in bed comfortably, in no apparent distress. HEENT: Head is normocephalic and atraumatic. Eyes, pupils are equally reactive to light bilaterally. No conjunctival pallor or icterus. NECK: Supple. Normal range of motion. No lymphadenopathy appreciated. LUNGS: Coarse breath sounds bilaterally. HEART: S1 and S2, regular rate and rhythm. No murmurs appreciated. ABDOMEN: Soft. Epigastric discomfort. No rebound. No guarding. RECTAL: Deferred. EXTREMITIES: Pulses present bilaterally. SKIN: Warm, dry, and intact. NEUROLOGIC: A and O x3. LABORATORY DATA: Labs reviewed WBC 7.8, hemoglobin 15.6, and hematocrit 45.8. Lipase is 6573 down from , triglycerides of 284, and sugars are 120 [address] CAT scan shows pancreatitis. Gallbladder ultrasound revealed fatty liver with no stones. ASSESSMENT AND PLAN: This is a 42-year-old male with recurrent pancreatitis secondary to alcohol at that point I have advised once again to stop drinking because of dehydration and pain control as needed. We will follow up with you. Thank you for the consult. Jose Eduardo Jimenez MD/ PhD cc: Dr. Johnson [facility] # [id number]
[2017-04-25] MEDS: Amylase/Lipase/Protease 5,000 Units ECC PO SCH ×2 (12:02→17:04)
--- NOTE | 2017-04-25 12:39 | CP.PCM.PN ---
Subjective - Date & Time of Evaluation Date of Evaluation: 04/25/17 Time of Evaluation: 12:38 - Subjective Subjective: tolerated clears Objective - Vital Signs/Intake and Output Vital Signs (last 24 hours): Temp Pulse Resp BP Pulse Ox 99.2 F 93 H 19 117/71 95 04/25/17 07:38 04/25/17 07:38 04/25/17 07:38 04/25/17 07:38 04/25/17 07:38 - Medications Medications: Current Medications Acetaminophen (Tylenol 325mg Tab) 650 mg PO Q4 PRN PRN Reason: Fever >100.4 F Amylase (Pancrease 69008 U-5000 U-27825 U) 5,000 unit PO TID [facility] Last Admin: 04/25/17 12:02 Dose: 5,000 unit Aripiprazole (Abilify) 10 mg PO DAILY [facility] Last Admin: 04/25/17 08:45 Dose: 10 mg Aspirin (Aspirin Chewable) 81 mg PO DAILY [facility] Last Admin: 04/25/17 08:45 Dose: 81 mg Atorvastatin Calcium (Lipitor) 40 mg PO DAILY [facility] Last Admin: 04/25/17 08:46 Dose: 40 mg Chlordiazepoxide (Librium) 25 mg PO 0000,0600,1200,1800 [facility] Last Admin: 04/25/17 12:02 Dose: 25 mg Clonazepam (Klonopin) 1 mg PO BID PRN PRN Reason: Anxiety Escitalopram Oxalate (Lexapro) 20 mg PO DAILY [facility] Last Admin: 04/25/17 08:45 Dose: 20 mg Famotidine (Famotidine) 20 mg IVP Q12 [facility] Last Admin: 04/25/17 08:45 Dose: 20 mg Fenofibrate (Tricor) 145 mg PO DAILY [facility] Last Admin: 04/25/17 08:46 Dose: 145 mg Home Med (Amlodipine Besylate/Benazepril [Lotrel 5-20 Mg Capsule]) 1 cap PO DAILY [facility] Last Admin: 04/25/17 08:45 Dose: 1 cap Home Med (Melatonin [Melatin]) 9 mg PO HS [facility] Last Admin: 04/24/17 21:27 Dose: 9 mg Hydromorphone HCl (Dilaudid) 1 mg IVP Q4 PRN PRN Reason: Pain, moderate (4-7) Last Admin: 04/25/17 12:06 Dose: 1 mg Lactated Ringer's (Lactated Ringer's) 1,000 mls @ 150 mls/hr IV .Q6H40M [facility] Last Admin: 04/25/17 00:07 Dose: 150 mls/hr Ketorolac Tromethamine (Toradol) 30 mg IVP Q6 PRN PRN Reason: Pain, Mild (1-3) Last Admin: 04/24/17 02:49 Dose: 30 mg Morphine Sulfate (Morphine) 2 mg IVP Q4 PRN PRN Reason: Pain, moderate (4-7) Morphine Sulfate (Morphine) 4 mg IVP Q4 PRN PRN Reason: Pain, severe (8-10) Nicotine (Nicoderm Cq) 1 patch TD DAILY [facility] Last Admin: 04/25/17 10:46 Dose: 1 patch Ondansetron HCl (Zofran Inj) 4 mg IVP Q6 PRN PRN Reason: Nausea/Vomiting Quetiapine Fumarate (Seroquel) 300 mg PO HS [facility] Last Admin: 04/24/17 21:23 Dose: 300 mg - Labs Labs: 04/25/17 05:55 04/25/17 05:55 - Neck Exam Neck Exam: Normal Inspection - Respiratory Exam Respiratory Exam: Clear to Ausculation Bilateral, NORMAL BREATHING PATTERN - Cardiovascular Exam Cardiovascular Exam: REGULAR RHYTHM Assessment and Plan - Assessment and Plan (Free Text) Assessment: 42 yo male with alcoholic pancreatitis doing well advance diet in evening if pain improving
[2017-04-26] MEDS: Lactated Ringer's 1,000 ML IV SCH ×2 (05:12→14:14)
[2017-04-26 06:40] LABS: BASO % 0.4 % (0.0-2.0); EOS # 0.1 K/uL (0.0-0.7); EOS % 0.8 % (0.0-4.0); HEMOGLOBIN 13.9 g/dL (12.0-18.0); LYMPH % 10.4 % (20.0-40.0); MEAN CELL VOLUME 93.2 fl (80.0-94.0); MEAN CORPUSCULAR HEMOGLOBIN 32.2 pg (27.0-31.0); MEAN CORPUSCULAR HGB CONC 34.5 g/dL (33.0-37.0); MONO # 0.9 K/uL (0.0-0.8); MONO % 8.5 % (0.0-10.0); NEUT # 8.1 K/uL (1.8-7.0); NEUT % 79.9 % (50.0-75.0); NRBC % 0.1 % (0.0-0.0); RBC 4.32 Mil/uL (4.40-5.90); RED CELL DISTRIBUTION WIDTH 14.1 % (11.5-14.5); WHITE BLOOD COUNT 10.1 K/uL (4.8-10.8)
[2017-04-26 07:01] LABS: ALBUMIN 3.3 g/dL (3.5-5.0); ALT/SGPT 35 U/L (21-72); AST/SGOT 16 U/L (17-59); BLOOD UREA NITROGEN 7 mg/dl (9-20); GFR AFRICAN-AMERICAN > 60; GFR NON-AFRICAN AMERICAN > 60; LIPASE 457 U/L (23-300)
[2017-04-26 08:11] VITALS: RESP 20
[2017-04-26] MEDS ORDERED: Potassium Chloride 20 mEq ER Tab PO ONE (08:14)
[2017-04-26] MEDS: AMLODIPINE BESYLATE PO SCH (08:32)
[2017-04-26] MEDS: BENAZEPRIL PO SCH (08:32)
[2017-04-26] MEDS: Amylase/Lipase/Protease 5,000 Units ECC PO SCH ×3 (08:36→17:12)
--- NOTE | 2017-04-26 09:02 | CP.PCM.PN ---
Subjective - Date & Time of Evaluation Date of Evaluation: 04/26/17 Time of Evaluation: 09:02 - Subjective Subjective: doign well. no f/c, n/v/d. no pain at present. enrique liquid, pending bland diet. dc if enrique. bw noted. cleared by gi for dc Objective - Vital Signs/Intake and Output Vital Signs (last 24 hours): Temp Pulse Resp BP Pulse Ox 98.8 F 87 20 120/72 92 L 04/26/17 08:10 04/26/17 08:10 04/26/17 08:10 04/26/17 08:10 04/26/17 08:10 - Medications Medications: Current Medications Acetaminophen (Tylenol 325mg Tab) 650 mg PO Q4 PRN PRN Reason: Fever >100.4 F Amylase (Pancrease 26617 U-5000 U-65636 U) 5,000 unit PO TID [facility] Last Admin: 04/26/17 08:36 Dose: 5,000 unit Aripiprazole (Abilify) 10 mg PO DAILY [facility] Last Admin: 04/26/17 08:32 Dose: 10 mg Aspirin (Aspirin Chewable) 81 mg PO DAILY [facility] Last Admin: 04/26/17 08:32 Dose: 81 mg Atorvastatin Calcium (Lipitor) 40 mg PO DAILY [facility] Last Admin: 04/26/17 08:34 Dose: 40 mg Chlordiazepoxide (Librium) 25 mg PO 0000,0600,1200,1800 [facility] Last Admin: 04/26/17 05:17 Dose: 25 mg Clonazepam (Klonopin) 1 mg PO BID PRN PRN Reason: Anxiety Last Admin: 04/26/17 08:33 Dose: 1 mg Escitalopram Oxalate (Lexapro) 20 mg PO DAILY [facility] Last Admin: 04/26/17 08:34 Dose: 20 mg Famotidine (Famotidine) 20 mg IVP Q12 [facility] Last Admin: 04/26/17 08:38 Dose: 20 mg Fenofibrate (Tricor) 145 mg PO DAILY [facility] Last Admin: 04/26/17 08:36 Dose: 145 mg Home Med (Amlodipine Besylate/Benazepril [Lotrel 5-20 Mg Capsule]) 1 cap PO DAILY [facility] Last Admin: 04/26/17 08:32 Dose: 1 cap Home Med (Melatonin [Melatin]) 9 mg PO HS [facility] Last Admin: 04/25/17 21:07 Dose: 9 mg Hydromorphone HCl (Dilaudid) 1 mg IVP Q4 PRN PRN Reason: Pain, moderate (4-7) Last Admin: 04/26/17 05:08 Dose: 1 mg Lactated Ringer's (Lactated Ringer's) 1,000 mls @ 150 mls/hr IV .Q6H40M [facility] Last Admin: 04/26/17 05:12 Dose: 150 mls/hr Ketorolac Tromethamine (Toradol) 30 mg IVP Q6 PRN PRN Reason: Pain, Mild (1-3) Last Admin: 04/24/17 02:49 Dose: 30 mg Morphine Sulfate (Morphine) 2 mg IVP Q4 PRN PRN Reason: Pain, moderate (4-7) Morphine Sulfate (Morphine) 4 mg IVP Q4 PRN PRN Reason: Pain, severe (8-10) Nicotine (Nicoderm Cq) 1 patch TD DAILY [facility] Last Admin: 04/26/17 08:35 Dose: 1 patch Ondansetron HCl (Zofran Inj) 4 mg IVP Q6 PRN PRN Reason: Nausea/Vomiting Quetiapine Fumarate (Seroquel) 300 mg PO [facility] Last Admin: 04/25/17 21:07 Dose: 300 mg - Labs Labs: 04/26/17 05:25 04/26/17 05:25 - Constitutional Appears: Well, Non-toxic, No Acute Distress - Head Exam Head Exam: ATRAUMATIC, NORMAL INSPECTION, NORMOCEPHALIC - Eye Exam Eye Exam: EOMI, Normal appearance, PERRL Pupil Exam: NORMAL ACCOMODATION, PERRL - ENT Exam ENT Exam: Mucous Membranes Moist, Normal Exam - Neck Exam Neck Exam: Full ROM, Normal Inspection. absent: Lymphadenopathy - Respiratory Exam Respiratory Exam: Clear to Ausculation Bilateral, NORMAL BREATHING PATTERN - Cardiovascular Exam Cardiovascular Exam: REGULAR RHYTHM, RRR, +S1, +S2. absent: Murmur - GI/Abdominal Exam GI & Abdominal Exam: Soft, Normal Bowel Sounds. absent: Tenderness - Extremities Exam Extremities Exam: Full ROM, Normal Capillary Refill, Normal Inspection. absent : Joint Swelling, Pedal Edema - Back Exam Back Exam: NORMAL INSPECTION - Neurological Exam Neurological Exam: Alert, Awake, CN II-XII Intact, Normal Gait, Oriented x3 - Psychiatric Exam Psychiatric exam: Normal Affect, Normal Mood - Skin Skin Exam: Dry, Intact, Normal Color, Warm Assessment and Plan (1) Dyslipidemia Status: Acute (2) Pancreatitis, alcoholic, acute Status: Acute (3) DVT prophylaxis Status: Acute - Assessment and Plan (Free Text) Assessment: (1) Dyslipidemia Assessment and Plan: cont home meds diet control Status: Acute (2) Pancreatitis, alcoholic, acute Assessment and Plan: ivf, cld pain control zofran/pepcid control lipis and trend lipase librium for withdrawal for s/s Status: Acute Priority: High (3) DVT prophylaxis Assessment and Plan: scd nad ae hose ambulation Status: Acute dc w/ percocet #10 and librium outpt aa vs other alcohol recovery
--- NOTE | 2017-04-26 09:18 | CP.PCM.PN ---
Subjective - Date & Time of Evaluation Date of Evaluation: 04/26/17 Time of Evaluation: :18 - Subjective Subjective: no new complaints Objective - Vital Signs/Intake and Output Vital Signs (last 24 hours): Temp Pulse Resp BP Pulse Ox 98.8 F 87 20 120/72 92 L 04/26/17 08:10 04/26/17 08:10 04/26/17 08:10 04/26/17 08:10 04/26/17 08:10 - Medications Medications: Current Medications Acetaminophen (Tylenol 325mg Tab) 650 mg PO Q4 PRN PRN Reason: Fever >100.4 F Amylase (Pancrease [id number] U) 5,000 unit PO TID [facility] Last Admin: 04/26/17 08:36 Dose: 5,000 unit Aripiprazole (Abilify) 10 mg PO DAILY [facility] Last Admin: 04/26/17 08:32 Dose: 10 mg Aspirin (Aspirin Chewable) 81 mg PO DAILY [facility] Last Admin: 04/26/17 08:32 Dose: 81 mg Atorvastatin Calcium (Lipitor) 40 mg PO DAILY [facility] Last Admin: 04/26/17 08:34 Dose: 40 mg Chlordiazepoxide (Librium) 25 mg PO 0000,0600,1200,1800 [facility] Last Admin: 04/26/17 05:17 Dose: 25 mg Clonazepam (Klonopin) 1 mg PO BID PRN PRN Reason: Anxiety Last Admin: 04/26/17 08:33 Dose: 1 mg Escitalopram Oxalate (Lexapro) 20 mg PO DAILY [facility] Last Admin: 04/26/17 08:34 Dose: 20 mg Famotidine (Famotidine) 20 mg IVP Q12 [facility] Last Admin: 04/26/17 08:38 Dose: 20 mg Fenofibrate (Tricor) 145 mg PO DAILY [facility] Last Admin: 04/26/17 08:36 Dose: 145 mg Home Med (Amlodipine Besylate/Benazepril [Lotrel 5-20 Mg Capsule]) 1 cap PO DAILY [facility] Last Admin: 04/26/17 08:32 Dose: 1 cap Home Med (Melatonin [Melatin]) 9 mg PO HS [facility] Last Admin: 04/25/17 21:07 Dose: 9 mg Hydromorphone HCl (Dilaudid) 1 mg IVP Q4 PRN PRN Reason: Pain, moderate (4-7) Last Admin: 04/26/17 09:10 Dose: 1 mg Lactated Ringer's (Lactated Ringer's) 1,000 mls @ 150 mls/hr IV .Q6H40M [facility] Last Admin: 04/26/17 05:12 Dose: 150 mls/hr Ketorolac Tromethamine (Toradol) 30 mg IVP Q6 PRN PRN Reason: Pain, Mild (1-3) Last Admin: 04/24/17 02:49 Dose: 30 mg Morphine Sulfate (Morphine) 2 mg IVP Q4 PRN PRN Reason: Pain, moderate (4-7) Morphine Sulfate (Morphine) 4 mg IVP Q4 PRN PRN Reason: Pain, severe (8-10) Nicotine (Nicoderm Cq) 1 patch TD DAILY [facility] Last Admin: 04/26/17 08:35 Dose: 1 patch Ondansetron HCl (Zofran Inj) 4 mg IVP Q6 PRN PRN Reason: Nausea/Vomiting Quetiapine Fumarate (Seroquel) 300 mg PO HS [facility] Last Admin: 04/25/17 21:07 Dose: 300 mg - Labs Labs: 04/26/17 05:25 04/26/17 05:25 - Head Exam Head Exam: NORMOCEPHALIC - Eye Exam Eye Exam: Normal appearance - ENT Exam ENT Exam: Normal Exam - Neck Exam Neck Exam: Normal Inspection - Respiratory Exam Respiratory Exam: Clear to Ausculation Bilateral, NORMAL BREATHING PATTERN - Cardiovascular Exam Cardiovascular Exam: REGULAR RHYTHM - GI/Abdominal Exam GI & Abdominal Exam: Soft, Tenderness, Normal Bowel Sounds Assessment and Plan - Assessment and Plan (Free Text) Assessment: 42 yo male with EtOH pancreatitis increase fluids advance diet slowly ct in 8 weeks
[2017-04-26 16:14] VITALS: BP 124/78; PULSE 86; TEMP 98.6; O2SAT 95
[2017-04-26] MEDS ORDERED: Promethazine DM 6.25 mg-15 mg/5 ml Syrup PO STA (18:21)
--- NOTE | 2017-04-26 19:13 | CP.PCM.DIS ---
Provider - Provider Date of Admission: 04/23/17 17:09 Attending physician: Malissa Johnson MD Primary care physician: Jose Eduardo Jimenez MD PhD Time Spent in preparation of Discharge (in minutes): 15 Diagnosis - Discharge Diagnosis (1) Dyslipidemia Status: Acute (2) Pancreatitis, alcoholic, acute Status: Acute Priority: High (3) DVT prophylaxis Status: Acute Hospital Course - Lab Results Lab Results: Most Recent Lab Values WBC 10.1 K/uL (4.8-10.8) 04/26/17 05:25 RBC 4.32 Mil/uL (4.40-5.90) L 04/26/17 05:25 Hgb 13.9 g/dL (12.0-18.0) 04/26/17 05:25 Hct 40.2 % (35.0-51.0) 04/26/17 05:25 MCV 93.2 fl (80.0-94.0) 04/26/17 05:25 MCH 32.2 pg (27.0-31.0) H 04/26/17 05:25 MCHC 34.5 g/dL (33.0-37.0) 04/26/17 05:25 RDW 14.1 % (11.5-14.5) 04/26/17 05:25 Plt Count 153 K/uL (130-400) 04/26/17 05:25 MPV 9.0 fl (7.2-11.7) 04/26/17 05:25 Neut % (Auto) 79.9 % (50.0-75.0) H 04/26/17 05:25 Lymph % (Auto) 10.4 % (20.0-40.0) L 04/26/17 05:25 [place] % (Auto) 8.5 % (0.0-10.0) 04/26/17 05:25 Eos % (Auto) 0.8 % (0.0-4.0) 04/26/17 05:25 Baso % (Auto) 0.4 % (0.0-2.0) 04/26/17 05:25 Neut # (Auto) 8.1 K/uL (1.8-7.0) H 04/26/17 05:25 Lymph # (Auto) 1.0 K/uL (1.0-4.3) 04/26/17 05:25 [place] # (Auto) 0.9 K/uL (0.0-0.8) H 04/26/17 05:25 Eos # (Auto) 0.1 K/uL (0.0-0.7) 04/26/17 05:25 Baso # (Auto) 0.0 K/uL (0.0-0.2) 04/26/17 05:25 Neutrophils % (Manual) 83 % (42-75) H 04/23/17 15:04 Band Neutrophils % 2 % (0-2) 04/23/17 15:04 Lymphocytes % (Manual) 10 % (20-50) L 04/23/17 15:04 Monocytes % (Manual) 5 % (0-10) 04/23/17 15:04 Platelet Estimate Normal (NORMAL) 04/23/17 15:04 RBC Morphology Normal (NORMAL) 04/23/17 15:04 Sodium 137 mmol/l (132-148) 04/26/17 05:25 Potassium 3.4 MMOL/L (3.6-5.0) L 04/26/17 05:25 Chloride 97 mmol/L (98-107) L 04/26/17 05:25 Carbon Dioxide 24 mmol/L (22-30) 04/26/17 05:25 Anion Gap 19 (10-20) 04/26/17 05:25 BUN 7 mg/dl (9-20) L 04/26/17 05:25 Creatinine 0.9 mg/dl (0.8-1.5) 04/26/17 05:25 Est GFR ( Amer) > 60 04/26/17 05:25 Est GFR (Non-Af Amer) > 60 04/26/17 05:25 Random Glucose 99 mg/dL (75-110) 04/26/17 05:25 Calcium 9.0 mg/dL (8.4-10.2) 04/26/17 05:25 Total Bilirubin 0.8 mg/dl (0.2-1.3) 04/26/17 05:25 AST 16 U/L (17-59) L 04/26/17 05:25 ALT 35 U/L (21-72) 04/26/17 05:25 Alkaline Phosphatase 53 U/L (38-126) 04/26/17 05:25 Troponin I < 0.0120 ng/mL (0.00-0.120) 04/23/17 15:04 Total Protein 6.6 G/DL (6.3-8.2) 04/26/17 05:25 Albumin 3.3 g/dL (3.5-5.0) L 04/26/17 05:25 Globulin 3.3 gm/dL (2.2-3.9) 04/26/17 05:25 Albumin/Globulin Ratio 1.0 (1.0-2.1) 04/26/17 05:25 Triglycerides 284 mg/DL (0-149) H D 04/24/17 06:10 Cholesterol 274 mg/dL (0-199) H 04/24/17 06:10 LDL Cholesterol Direct 207 mg/dL (0-129) H 04/24/17 06:10 HDL Cholesterol 36 MG/DL (30-70) 04/24/17 06:10 Lipase 457 U/L (23-300) H 04/26/17 05:25 Alcohol, Quantitative < 10 mg/dl (0-10) 04/23/17 18:17 - Hospital Course Hospital Course: pain meds, ivf, nausea control gi Discharge Exam - Head Exam Head Exam: ATRAUMATIC, NORMAL INSPECTION, NORMOCEPHALIC Discharge Plan - Discharge Medications Prescriptions: chlordiazePOXIDE [Librium] 25 mg PO 0000,0600,1200,1800 #8 cap oxyCODONE/Acetaminophen [Percocet 5/325 mg Tab] 1 tab PO Q6 PRN #10 tab PRN Reason: Pain, Severe (8-10) - Follow Up Plan Condition: FAIR Disposition: HOME/ ROUTINE Instructions: Pancreatitis (DC), High Cholesterol (DC) Additional Instructions: follow up with your primary MD 7-10 days. final dx-alcoholic pancreatitis rx for percocet/libirum given. pt states had a cough w/ some tightness in chest prior to dc. given phenergen and will e-rx phenergen for pt. f/u rmg monday, gi as directed. po as enrique avoid etoh. 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 enrique po prior to dc Referrals: Jose Eduardo Jimenez MD, PhD [Primary Care Provider] - Natanael Johnson, DNP, STATEMENT DISTRIBUTION CLERK [Family Provider] -
== END 2017-04-26 18:55 | disposition home or self-care (01) | DRG 440 ==
LOC: H.ER 14:03 → SUPCPDRO 14:03 → H.ERHOLD 17:09 → H.MEDSURG1 18:55
PROVIDERS: ADMIT Family Medicine; ATTEND Family Medicine
DX: K85.20 Alcohol induced acute pancreatitis without necrosis or infection (principal); E78.00 Pure hypercholesterolemia, unspecified; E86.0 Dehydration; K29.70 Gastritis, unspecified, without bleeding; E78.5 Hyperlipidemia, unspecified; I10 Essential (primary) hypertension; F32.9 Major depressive disorder, single episode, unspecified; F41.9 Anxiety disorder, unspecified; R07.9 Chest pain, unspecified; F17.200 Nicotine dependence, unspecified, uncomplicated